=== PATIENT | male | born 1950 | race Caucasian/White ===

== ENCOUNTER → 2019-08-16 00:01 | Outpatient (RCR) | payer OTHER, SELFPAY | LOC: ONCRAD 07-18 05:52 → ONCMED 07-20 05:59 | PROVIDERS: Visit Provider Internal Medicine Hematology & Oncology | DX: Z51.0 Encounter for antineoplastic radiation therapy (principal); Z51.11 Encounter for antineoplastic chemotherapy; C32.1 Malignant neoplasm of supraglottis; D70.1 Agranulocytosis secondary to cancer chemotherapy; T45.1X5A Adverse effect of antineoplastic and immunosuppressive drugs, initial encounter; E86.0 Dehydration; I48.91 Unspecified atrial fibrillation; M19.90 Unspecified osteoarthritis, unspecified site; N18.9 Chronic kidney disease, unspecified; I12.9 Hypertensive chronic kidney disease with stage 1 through stage 4 chronic kidney disease, or unspecified chronic kidney disease; D69.6 Thrombocytopenia, unspecified; L58.9 Radiodermatitis, unspecified; B37.9 Candidiasis, unspecified; K12.32 Oral mucositis (ulcerative) due to other drugs; W88.1XXA Exposure to radioactive isotopes, initial encounter; Z93.0 Tracheostomy status; Z79.01 Long term (current) use of anticoagulants; Z79.51 Long term (current) use of inhaled steroids; Z79.899 Other long term (current) drug therapy; Z85.038 Personal history of other malignant neoplasm of large intestine | CPT/HCPCS: 36415; 36591 ×3; 77280; 77300; 77336 ×4; 77338; 77386 ×17; 80053 ×6; 85007 ×2; 85025 ×6; 96361; 96365 ×5; 96367; 96368 ×5; 96372 ×6; 96413; 99214 ×4; J0133 ×5; J1100; J1442 ×6; J1450 ×5; J1642 ×12; J2469; J9045 ==

== ENCOUNTER 2019-09-12 05:35 | Outpatient (RCR) | payer OTHER, SELFPAY ==
[2019-08-18 15:26] LABS: Eosinophils # 0.1 10^3/uL (0.0-0.8); Eosinophils % 3.8 %; Hematocrit 36.1 % (42.0-52.0); Hemoglobin 11.4 g/dL (11.7-16.6); Lymphocytes # 0.4 10^3/uL (0.8-4.8); Lymphocytes % 14.7 %; Mean Corpuscular HGB Conc 31.6 g/dL (30.0-36.0); Mean Corpuscular Hemoglobin 33.1 pg (28.0-34.0); Mean Corpuscular Volume 104.9 fL (80-94); Monocytes # 0.7 10^3/uL (0.2-0.9); Monocytes % 24.9 %; Neutrophils # 1.6 10^3/uL (1.8-7.7); Neutrophils % 55.3 %; Nucleated Red Blood Cells % 0 %; Platelet Count 307 10^3/cmm (130-400); Red Blood Count 3.44 10^6/uL (4.1-5.3); White Blood Count 2.9 10^3/uL (4.0-10.0)
[2019-09-09 09:09] LABS: Basophils % 0.2 %; Eosinophils # 0.2 10^3/uL (0.0-0.8); Eosinophils % 4.6 %; Hematocrit 36.3 % (42.0-52.0); Hemoglobin 11.8 g/dL (11.7-16.6); Lymphocytes # 0.3 10^3/uL (0.8-4.8); Lymphocytes % 7.8 %; Mean Corpuscular HGB Conc 32.5 g/dL (30.0-36.0); Mean Corpuscular Hemoglobin 33.9 pg (28.0-34.0); Mean Corpuscular Volume 104.3 fL (80-94); Mean Platelet Volume 9.3 fL (7.4-10.4); Monocytes # 0.4 10^3/uL (0.2-0.9); Monocytes % 9.9 %; Neutrophils # 3.4 10^3/uL (1.8-7.7); Neutrophils % 77.3 %; Nucleated Red Blood Cells % 0 %; Platelet Count 299 10^3/cmm (130-400); Red Blood Count 3.48 10^6/uL (4.1-5.3); Red Cell Distribution Width 15.5 % (12.1-15.1); White Blood Count 4.4 10^3/uL (4.0-10.0)
[2019-09-09 09:23] LABS: Alanine Aminotransferase 15 U/L (0-41); Albumin Level 3.7 g/dL (3.5-5.2); Alkaline Phosphatase 98 IU/L (40-130); Anion Gap 12.3 (5-19); Blood Urea Nitrogen 21 mg/dL (8-23); Calcium 9.3 mg/dL (8.5-10.5); Carbon Dioxide 30 mmol/L (22-29); Chloride 100 mmol/L (98-107); Globulin 2.2 g/dL (1.3-4.6); Glomerular Filtration Rate 74.3 mL/min (90-130); Glucose 148 mg/dL (74-106); Potassium 4.3 mmol/L (3.5-5.1); Sodium 138 mmol/L (136-145); Total Bilirubin 0.5 mg/dL (0.15-1.2); Total Protein 5.9 g/dL (6.6-8.7)
[2019-09-09 10:25] LABS: Aspartate Amino Transferase 21 U/L (0-40)
--- NOTE | 2019-09-12 16:03 | ONC FU_ITS ---
Dr. Charles follow up note Patient: Edgar Thomas Unit #: [id number]: 1950 Dicatated By: Duglas Charles M.D.Date of Visit:Sep 12, 2019 Onc Med Follow-up/Prog Note History of Present Illness: Mr. Thomas is a 69-year-old gentleman with a 40-year history of smoking. He presented with right ear pain about 4 months ago and developed a sore throat 1 to 2 months ago. He had no dysphagia, choking or difficulty breathing. He had no taste changes at that time. [facility] He was found to have a tumor in the right supraglottic area. He underwent tracheostomy and direct micro-laryngoscopic biopsy on 04/26/2019. [facility] The microlaryngeal scopic goal exam revealed the supraglottis with significant redundant tissue, mass in the right supraglottis extending into the right TVF, The pretracheal lymph node was negative for malignancy. He recovered well from the biopsies. Mr Thomas did see Dr. Banks on 05/11/2019 for consideration of radiation therapy. He underwent pet imaging on 05/06/2019. He was found to have a right supraglottic mass that extended to the right true vocal cord with an SUV of 22.7. He had bilateral jugulodigastric nodes that were too small to characterize. . He was felt to be ineligible for high-dose cisplatin concurrent with radiation therapy due to his chronic renal insufficiency, peripheral neuropathy and other comorbid conditions. so was recommended weekly carboplatin along with capecitabine daily on the days of radiation. He underwent right subclavian Mediport placement per Dr. Peres [place]16[place]2019 [place] [facility] [place] dental extractions His past medical history includes colon cancer in 2011 at which time he was treated with what sounds like FOLFOX. His reports that one of his chemo was taken away because of cold sensitivity and numbness and tingling in his fingers. He was able to continue with the pump . He reported that he tolerated that well other than the side effects from the oxaliplatin and he had no nausea or excessive diarrhea at that time. Mr Thomas started combined chemoradiation with weekly carboplatin/daily Xeloda on the day of radiation therapy on 06/20/2019. He received week 3-2 days late as his treatment was held on Thursday due to significant diarrhea and poor performance status. His treatment was then held again on July 25, 2019/July 26, 2019 due to significant neutropenia. His ANC at that time was 1300. He ended up with 6 days of Neupogen which he tolerated well His ANCgone up to 34,500.Was given last dose of weekly carboplatin concurrent with radiation therapy on 08/04/2019. While Xeloda was continued to be on hold. He has completed his radiation therapy on 08/09/2019 Came for follow-up, complaining of sore throat, no fever or chills, no yellowish phlegm but clear mucus ..Tracheostomy site is clear. No fever or chills, nonshortness of breath. No nausea vomiting Medications: Acetaminophen 2 Tablet (of 500 mg) Oral b.i.d. PRN, Albuterol Sulfate HFA 2 puff(s) (of 108 (90 base) mcg/act) Aerosol, solution Inhalation four times a day PRN, Apixaban 1 Tablet (of 5 mg) Oral b.i.d., Budesonide-Formoterol Fumarate 2 puff(s) (of 160-4.5 mcg/act) Aerosol Inhalation b.i.d., Docusate Calcium 1 Capsule (of 240 mg) Oral b.i.d., HYDROcodone-Acetaminophen 15 mL (of 7.5-325 mg/15mL) Solution Oral q 4 to 6 hours PRN, Hydrogen Peroxide (3 %) Miscellaneous Topical Take as Directed, LORazepam 0.5 - 1 Tablet (of 1 mg) Oral t.i.d. PRN, Metoprolol Tartrate 1 Tablet (of 25 mg) Oral q 6 hours PRN, Multivitamin Iron-Free 1 Tablet Oral daily, Prochlorperazine Maleate 1 Tablet (of 10 mg) Oral q 4 hours, raNITIdine HCl 1 Tablet (of 150 mg) Oral daily, Sodium Chloride (0.9 %) Aerosol, solution Inhalation Take as Directed, Spironolactone 1 Tablet (of 50 mg) Oral daily, Sterile Water for Irrigation Solution Irrigation Take as Directed, Torsemide 5 Tablet (of 10 mg) Oral daily PRN, traMADol HCl 1 Tablet (of 50 mg) Oral b.i.d. PRN Allergies: No Known Allergies. Review of Systems: Constitutional - Appetite is good and weight is stable. No fever, chills, hot flashes, or night sweats. Energy level is fair, ENMT - No sinus congestion/drainage. No mouth sores. Positive for sore throat, Hematologic/Lymphatic - No abnormal bruising or bleeding, Respiratory - Pt has trach, Cardiovascular - No angina pain. No palpitations, Gastrointestinal - No nausea or vomiting. Occasional heartburn, no acid reflux. No diarrhea or constipation. No blood in the stool or black stools, Genitourinary (M) - No dysuria or hematuria. No urinary frequency. No urgency or incontinence, Musculoskeletal - Positive for joint pain, Neurologic - No headache or dizziness. No numbness/paresthesias or other focal neurologic symptoms, Psychiatric - No anxiety or depression. Positive for insomnia. Vital Signs: Performed on Sep 12, 2019 15:31 Height - 71.00 in Weight - 262.8 lbs (HIGH) BSA - 2.37 sq.m BMI - 36.65 (HIGH) Temperature - 98.4 F Pulse - 71 /min Respiration - 26 /min BP - 137/89 mm(hg) O2 Sat - 98 % Pain - 8 Performance Status: 1 - No physically strenuous activity, but ambulatory and able to carry out light or sedentary work (e.g. office work, light house work). (ECOG) Physical Examination: ENMT - No oral exudates, ulcers, masses, thrush or mucositis. Oropharynx clear. Tongue normal.trach site is clear, Respiratory - Lungs are clear to auscultation without rhonchi or wheezing, Cardiovascular - Regular rate and rhythm of heart, Abdomen - Non-tender, non-distended, Good bowel sounds. No guarding or rebound tenderness. No pulsatile masses, Extremities - no edema. Lab/Imaging: Test performed on Aug 16, 2019 10:20 Sodium 136 mmol/L Potassium 4.5 mmol/L Chloride 98 mmol/L CO2 31 mmol/L Anion Gap 11.5 BUN 22 mg/dL Creatinine 1.0 mg/dL Cr Clearance (Est) 131.9100 mL/min eGFR 74.3 mL/min Glucose 134 mg/dl Calcium 9.9 mg/dL Protein, Total 6.9 g/dL Albumin 4.1 g/dL Globulin 2.8 gm/dL Bilirubin, Total 0.3 mg/dL ALT (SGPT) 19 U/L AST (SGOT) 18 U/L Alkaline Phosphatase 98 U/L Test performed on Aug 04, 2019 09:10 WBC 35.6 10 3/uL Manual Segs % 64 % Manual Bands % 33.0 % RBC 3.50 10 6/uL HGB 11.2 g/dL Manual Lymphs % 2.0 % HCT 35.6 % Manual Monos % 1.0 % MCV 101.7 fl MCH 32.0 pg MCHC 31.5 g/dl RDW 17.8 % Platelet Count 314 10 3/cmm MPV 9.1 fl CBC Slide Review SLIDE REVIEW PERFORM Polychromasia TRACE Poikilocytosis 1+ Ovalocytes 1+ Platelet Estimate NORMAL Platelets, Giant TRACE Manual Neutrophils Abs 34.5 10 3/cmm Manual Lymphocytes Abs 0.7 10 3/cmm Manual Monocytes Abs 0.4 10 3/cmm Test performed on Aug 01, 2019 08:59 Manual Eos % 2 % Metamyelocytes % 3.0 % Myelocytes % 2.0 % Anisocytosis 1+ Macrocytosis 1+ Manual Eosinophils Abs 0.0 10 3/cmm Test performed on Jul 25, 2019 11:01 Neutrophils 1.3 10 3/uL Lymphocytes 0.3 10 3/uL Monocytes 0.3 10 3/uL Eosinophils 0.1 10 3/uL Basophils 0.0 10 3/uL Neutrophil % 66.7 % Lymphocyte % 14.6 % Monocyte % 13.0 % Eosinophil % 4.7 % Basophils % 0.0 % Impression: .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 CT PET scan done on 05/14/2019 showed abnormal activity in the right supra glottic territory with extension into right true cord with SUV of 22.7 measuring up to 2.8 cm. Tiny, bilateral level IV jugulodigastric nodes are too small to characterize. Micrometastatic disease cannot be ruled out. 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 Atrial fibrillation on anticoagulation. Mr Thomas has been offered concurrent treatment with radiation and chemotherapy with weekly Carboplatin and capecitabine Thursday-Thursday concurrent with radiation. He began his first on cycles/treatment on 06/27/2019. Week 3 was delayed due to significant diarrhea, which he thought it was something he ate. His diarrhea improved, but his was thrombocytopenic with a platelet count of 80,000. He has continued to be delayed due to blood counts and most recent neutropenia. He did receive 6 doses of growth factor and his counts have recovered. He completes radiation therapy on 08/09/2019.And last dose of chemotherapy with weekly carboplatin was given on 08/04/2019, while Xeloda was on hold. So he concluded his combined chemoradiation on 08/09/2019. Plan: Discussed with patient regarding his labs white blood count 4.4 hemoglobin 11.8 crit 36.3 Platelets 299,000 Clinically, patient is doing well now recovering well from combined chemoradiation, his follow-up lab shows normalization of hemoglobin and resolution of leukopenia. Patient has seen radiation oncology last week now scheduled for follow-up CT scan of neck on 09/21/2019 and patient also has follow-up appointment with ENT in September 2019. We'll flush her Port-A-Cath today and then he'll return to clinic in one month with CBC and if follow-up CT scan of neck shows no evidence of disease then we'll see him on as-needed basis as patient will be following ENT and radiation oncology on a regular basis. Signed By: Duglas Charles M.D. <<Signature on File>>
== END 2019-09-16 23:59 | disposition home or self-care (01) ==
LOC: ONCMED 05:35
PROVIDERS: Visit Provider Internal Medicine Hematology & Oncology
DX: C32.1 Malignant neoplasm of supraglottis (principal); Z45.2 Encounter for adjustment and management of vascular access device; N18.9 Chronic kidney disease, unspecified; G62.9 Polyneuropathy, unspecified; F51.01 Primary insomnia; I48.91 Unspecified atrial fibrillation; Z93.0 Tracheostomy status; Z79.891 Long term (current) use of opiate analgesic; Z79.01 Long term (current) use of anticoagulants; Z92.3 Personal history of irradiation; Z92.21 Personal history of antineoplastic chemotherapy
CPT/HCPCS: 80053; 85025; 96523; G0463

== ENCOUNTER 2019-09-21 07:40 | Outpatient (CLI) | payer OTHER, SELFPAY | END 2019-09-21 07:41 | disposition home or self-care (01) | LOC: RAD 07:41 | PROVIDERS: Visit Provider Internal Medicine Hematology & Oncology | DX: Z76.89 Persons encountering health services in other specified circumstances (principal) ==

== ENCOUNTER 2019-10-13 05:45 | Outpatient (RCR) | payer OTHER, SELFPAY ==
--- NOTE | 2019-09-21 07:51 | CT_ITS ---
WS: [id number] CT NECK WITH CONTRAST HISTORY: MALIGNANT NEOPLASM OF SUPRAGLOTTIS TECHNIQUE: Contiguous 5 mm axial images are performed through the neck with intravenous contrast. Sag ittal and coronal reformats are also submitted. All CT scans at [facility] use at least o ne of these dose optimization techniques: automated exposure control; mA and/or kV adjustment per pat ient size (includes targeted exams where dose is matched to clinical indication); or iterative recons truction. CONTRAST: CONTRAST: Omnipaque 300; 95 mL IV. DLP: 847.35 mGy.cm COMPARISON: None available. Tracheostomy is present in good position. There is significant soft tissue thickening and edematous changes near the glottis and supraglottic a irway. There is still soft tissue thickening especially involving the RIGHT glottis and vocal cord re gion. Some of these changes may be related to edema and postradiation changes. The soft tissue thicke ben and edema extends circumferentially around the larynx but is more prominent on the RIGHT at the level of the vocal cords. There is no discrete enhancing mass. There are a few jugulodigastric lymph nodes. These are not significantly enlarged or changed since pr ior studies. Thyroid gland and salivary glands are normally enhancing with no masses. Straightening of the normal cervical lordosis with disc space narrowing and osteophytes. Visualized portions of the skull base demonstrate no abnormalities. Orbits and globes are within norm al limits. No soft tissue masses. Visualized paranasal sinuses and mastoid air cells are normal. Emphysematous changes in the upper lung pérez. There is diffuse scattered opacifications in the RIGH T upper lobe which are ill-defined and groundglass attenuation. Early metastatic lesions are not excl uded but more likely pneumonitis. CT/CT neck w con* [id number] IMPRESSION: 1. Tracheostomy remains in good position. 2. There is significant soft tissue tissue thickening and edema in the glottic and supraglottic region. Suspect this is probably related to the treatment of a known neoplasm at the level of the vocal cords. There is continued asymmetric thickening of the true and false vocal cord region. No discrete enhancing mass . 3. No enlarging lymph nodes. 4. Scattered ill-defined opacifications RIGHT upper lobe. Probably related to pneumonitis. Recommend follow-up CT imaging in 3 months to exclude early metast atic disease.
[2019-09-21] MEDS: iohexol 300 mg/mL 100 mL Btl IV (08:16)
--- NOTE | 2019-10-03 11:53 | ONCRAD EPV_ITS ---
Radiation Oncology Established Patient Visit Patient: Pao MR#: [id number] : 1950> Age: 69> Sex: Male> Dictated by: Dr. Raymond Banks Date of Service: 09/28/2019 Referring Physician(s) : Duglas Charles Diagnosis: C32.1 - Malignant neoplasm of supraglottis, Diagnosed 04/26/2019 (Active) Stage X, Chief Complaint / History of Present Illness: This is a 68-year-old gentleman with a locally advanced invasive squamous cell carcinoma involving the supraglottis, with significant redundant tissue/mass of right supraglottis extending to right TVF. He received concurrent chemoradiation therapy to a total dose of 70 Gy completed on August 09, 2019. The patient comes in for follow-up today. He notes significant neck pain and swelling as well as sore throat, ear pain, dry mouth, altered taste, odynophagia and dysphagia but denies choking or difficulty breathing. He underwent a CT of neck on September 21, 2019 which showed a significant soft tissue thickening and edema in the glottic and supraglottic region. There is continued asymmetric thickening of left true and false vocal cord region but no discrete enhancing mass. There are no enlarged lymph nodes. Current Medications: Acetaminophen, albuterol Sulfate HFA, aloxi, apixaban, budesonide-Formoterol Fumarate, capecitabine, cARBOplatin, dexamethasone Sodium Phosphate, docusate Calcium, hYDROcodone-Acetaminophen, hYDROcodone-Acetaminophen, hydrogen Peroxide, levoFLOXacin, lORazepam, metoprolol Tartrate, multivitamin Iron-Free, prochlorperazine Maleate, prochlorperazine Maleate, raNITIdine HCl, sodium Chloride, spironolactone, sterile Water for Irrigation, torsemide, traMADol HCl, traMADol HCl. Allergies: No Known Allergies Current Complaints / Review of Systems: Constitutional - Complains of mild fatigue. Complains of night sweats which occur every night. Denies fever. Patient is NPO right now and receives nutrition by the PEG Tube. Eyes - Complains of blurred vision occasionally. ENMT - Complains of dysphagia which has been worsening in the past 2 to 3 weeks.. Complains of ear pain in both ears. Complains of problems with hearing in both ears. Complains of mouth dryness. Complains of stomatitis. Complains of altered taste. Complains of tinnitus. Neck - Complains of neck pain and swelling of the neck. Integumentary - Denies rash. Respiratory - Complains of a severe cough which is productive. Complains of wheezing. Denies dyspnea. Gastrointestinal - Complains of occasional constipation. Complains of intermittent diarrhea. Complains of heartburn / dyspepsia. Complains of nausea. Denies abdominal pain, melena / GI bleeding and vomiting. Genitourinary (M) - Denies dysuria, frequency and urgency. Musculoskeletal - Complains of arthritis and joint pain in the knees, right hip and elbow. Denies bone pain. Neurologic - Complains of headaches. Denies dizziness and abnormal gait. Endocrine - Denies diabetes and thyroid disease. Hematologic/Lymphatic - Denies tender or enlarged lymph nodes.. Vital Signs: Performed on 09/28/2019 4:00 PM BMI - 37.192 kg/m2 (high), Height - 70.00 in, Weight - 259.2 lbs, Temperature - 97.7 f, Pulse - 88, Respiration - 20, O2 Sat - 96 %, Pain - 6 and BP - 114/ 80 mm(hg). Physical Exam: General: Alert and oriented x 3. No acute distress. HEENT: Normocephalic, atraumatic. Extraocular Movements Intact: Pupils Equal, Round, Reactive to Light and Accommodation: Sclerae anicteric. Oral cavity is clear without lesions, masses or ulcers. NECK: Supple without supraclavicular or jugular lymphadenopathy. Neck is swollen. Trach in place. The trach site is clean with no signs of infection or bleeding. LUNGS: Clear to auscultation bilaterally without rales, rhonchi or wheeze. HEART: Regular rate and rhythm, normal S1 and S2 without murmur, gallop or rub. MUSCULOSKELETAL: No tenderness or percussion pain over the axial skeleton, scapulae or pelvis. ABDOMEN: Soft, nontender, nondistended without masses or organomegaly. Bowel sounds are present. EXTREMITIES: No peripheral edema is identified. Limited motor and sensory examination are grossly intact and symmetric bilaterally. NEUROLOGIC: Cranial nerves II ???XII are grossly intact. Normal sensation, strength 5/5 in all extremities, normal gait, no ataxia. Performance Status: 2 - Ambulatory/capable of all self-care, unable to perform any work activities. Up and about more than 50% of waking hours. (ECOG) Lab: Test performed on 09/09/2019 7:15 AM RBC - 3.48 10 6/ul (low), HCT - 36.3 % (low), MCV - 104.3 fl (high), RDW - 15.5 % (high), Lymphocytes - 0.3 10 3/ul (low), CO2 - 30 mmol/l (high), eGFR - 74.3 ml/min (low), Glucose - 148 mg/dl (high) and Protein, Total - 5.9 g/dl (low). Pathology: Squamous cell carcinoma Imaging: See HPI Impression: The patient is about 7 weeks post chemoradiation and has clinical evidence of swelling and edema in the larynx with pain. Plan: I recommended patient to take ibuprofen 200 mg 3 times daily with meals for 7 to 10 days andCome back to see us for reevaluation. He was instructed to take Prilosec to protect the stomach while taking ibuprofen. I also instructed patient to clean the trach site daily according to instruction. Signed by: 10/03/2019 11:51:33 AM <<Signature on File>> CPT Code: CPT Code: Signed By: Dr. Raymond Banks, 10/03/2019 11:51:34 AM <<Signature on File>>
[2019-10-12 12:04] LABS: Basophils % 0.1 %; Eosinophils # 0.2 10^3/uL (0.0-0.8); Eosinophils % 2.5 %; Hematocrit 41.1 % (42.0-52.0); Hemoglobin 12.8 g/dL (11.7-16.6); Lymphocytes # 0.4 10^3/uL (0.8-4.8); Lymphocytes % 5.6 %; Mean Corpuscular HGB Conc 31.1 g/dL (30.0-36.0); Mean Corpuscular Hemoglobin 32.3 pg (28.0-34.0); Mean Corpuscular Volume 103.8 fL (80-94); Mean Platelet Volume 9.3 fL (7.4-10.4); Monocytes # 0.8 10^3/uL (0.2-0.9); Monocytes % 11.1 %; Neutrophils # 5.9 10^3/uL (1.8-7.7); Neutrophils % 80.6 %; Nucleated Red Blood Cells % 0 %; Platelet Count 399 10^3/cmm (130-400); Red Blood Count 3.96 10^6/uL (4.1-5.3); Red Cell Distribution Width 12.3 % (12.1-15.1); White Blood Count 7.3 10^3/uL (4.0-10.0)
[2019-10-12 12:34] LABS: Alanine Aminotransferase 30 U/L (0-41); Albumin Level 3.5 g/dL (3.5-5.2); Alkaline Phosphatase 126 IU/L (40-130); Anion Gap 16.4 (5-19); Aspartate Amino Transferase 26 U/L (0-40); Blood Urea Nitrogen 28 mg/dL (8-23); Calcium 9.5 mg/dL (8.5-10.5); Carbon Dioxide 30 mmol/L (22-29); Chloride 98 mmol/L (98-107); Glomerular Filtration Rate 83.9 mL/min (90-130); Glucose 126 mg/dL (65-115); Potassium 4.4 mmol/L (3.5-5.1); Sodium 140 mmol/L (136-145); Total Bilirubin 0.2 mg/dL (0.15-1.2); Total Protein 7.5 g/dL (6.6-8.7)
--- NOTE | 2019-10-17 14:54 | ONCRAD EPV_ITS ---
Radiation Oncology Established Patient Visit Patient: Pao MR#: [id number] : 1950> Age: 69> Sex: Male> Dictated by: Dr. Raymond Banks Date of Service: 10/13/2019 Referring Physician(s) : Duglas Charles Diagnosis: C32.1 - Malignant neoplasm of supraglottis, Diagnosed 04/26/2019 (Active) Stage X, Chief Complaint / History of Present Illness: This is a 68-year-old gentleman with a locally advanced invasive squamous cell carcinoma involving the supraglottis, with significant redundant tissue/mass of right supraglottis extending to right TVF. He received concurrent chemoradiation therapy to a total dose of 70 Gy completed on August 09, 2019. He underwent a CT of neck on September 21, 2019 which showed a significant soft tissue thickening and edema in the glottic and supraglottic region. There is continued asymmetric thickening of left true and false vocal cord region but no discrete enhancing mass. There are no enlarged lymph nodes. The patient comes in for follow-up today. He notes neck pain and swelling are unchanged. He also notes right ear pain occasionally, dry mouth, altered taste, odynophagia and dysphagia. He is NPO per his ENT doctor and use PEG tube for feeding. Current Medications: Acetaminophen, albuterol Sulfate HFA, aloxi, apixaban, budesonide-Formoterol Fumarate, capecitabine, cARBOplatin, dexamethasone Sodium Phosphate, docusate Calcium, hYDROcodone-Acetaminophen, hydrogen Peroxide, levoFLOXacin, lORazepam, metoprolol Tartrate, morphine Sulfate, multivitamin Iron-Free, prochlorperazine Maleate, prochlorperazine Maleate, raNITIdine HCl, sodium Chloride, spironolactone, sterile Water for Irrigation, torsemide, traMADol HCl. Allergies: No Known Allergies Current Complaints / Review of Systems: Constitutional - Complains of mild fatigue. Complains of night sweats which occur occasionally. Denies fever. Patient is NPO and uses the PEG tube. Eyes - Denies blurred vision. ENMT - Complains of dysphagia and also has odynophagia. His ENT does not want him to take anything by mouth and only use the PEG Tube for now. Complains of ear pain on the right side occasionally. Complains of mouth dryness. Denies stomatitis. Neck - Complains of neck pain and swelling of the neck that comes and goes. Integumentary - Denies rash. Cardiovascular - Complains of arrhythmias occasionally and he H/O A-Fib. Denies chest pain. Respiratory - Complains of a moderate cough which is productive. Complains of dyspnea occasionally. Complains of wheezing. Denies hemoptysis. Gastrointestinal - Complains of intermittent constipation. Complains of occasional diarrhea. Complains of heartburn / dyspepsia. Complains of nausea. Denies abdominal pain and vomiting. Genitourinary (M) - Denies dysuria, frequency and urgency. Musculoskeletal - Complains of arthritis, bone pain left shoulder that started last week and joint pain. Denies muscle weakness. Neurologic - Complains of headaches occasionally and has been getting them with coughing as well. Denies dizziness. Endocrine - Denies diabetes and thyroid disease. Hematologic/Lymphatic - Denies tender or enlarged lymph nodes. Vital Signs: Performed on 10/13/2019 12:00 AM Height - 71.00 in, Weight - 257.2 lbs, BMI - 35.872 kg/m2 (high), Temperature - 97.5 f, Pulse - 59, Respiration - 18, O2 Sat - 95 % (low), Pain - 6 and BP - 119/ 78 mm(hg). Physical Exam: General: Alert and oriented x 3. No acute distress. HEENT: Normocephalic, atraumatic. Extraocular Movements Intact: Pupils Equal, Round, Reactive to Light and Accommodation: Sclerae anicteric. Oral cavity is clear without lesions, masses or ulcers. NECK: Supple without supraclavicular or jugular lymphadenopathy. Trach in place. LUNGS: Clear to auscultation bilaterally without rales, rhonchi or wheeze. HEART: Regular rate and rhythm, normal S1 and S2 without murmur, gallop or rub. MUSCULOSKELETAL: No tenderness or percussion pain over the axial skeleton, scapulae or pelvis. ABDOMEN: Soft, nontender, nondistended without masses or organomegaly. Bowel sounds are present. EXTREMITIES: No peripheral edema is identified. Limited motor and sensory examination are grossly intact and symmetric bilaterally. NEUROLOGIC: Cranial nerves II ???XII are grossly intact. Normal sensation, strength 5/5 in all extremities, normal gait, no ataxia. Performance Status: 2 - Ambulatory/capable of all self-care, unable to perform any work activities. Up and about more than 50% of waking hours. (ECOG) Lab: Test performed on 09/09/2019 7:15 AM RBC - 3.48 10 6/ul (low), HCT - 36.3 % (low), MCV - 104.3 fl (high), RDW - 15.5 % (high), Lymphocytes - 0.3 10 3/ul (low), CO2 - 30 mmol/l (high), eGFR - 74.3 ml/min (low), Glucose - 148 mg/dl (high) and Protein, Total - 5.9 g/dl (low). Pathology: Squamous cell carcinoma Imaging: See HPI Impression/plan: The patient has laryngeal edema unchanged. He will follow up with his ENT for management. I will order a CT of neck in 3 months. He will follow up with me afterwards. He is instructed to call us with any questions or issues. Signed by: 10/17/2019 2:53:01 PM <<Signature on File>> CPT Code: CPT Code: Signed By: Dr. Raymond Banks, 10/17/2019 2:53:02 PM <<Signature on File>>
== END 2019-10-15 23:59 | disposition home or self-care (01) ==
LOC: ONCMED 05:45
PROVIDERS: Radiology Radiation Oncology; Visit Provider Internal Medicine Hematology & Oncology
DX: C32.1 Malignant neoplasm of supraglottis (principal); Z45.2 Encounter for adjustment and management of vascular access device; R91.8 Other nonspecific abnormal finding of lung field; R60.0 Localized edema; Z93.0 Tracheostomy status; Z79.891 Long term (current) use of opiate analgesic; Z92.21 Personal history of antineoplastic chemotherapy; Z92.3 Personal history of irradiation
CPT/HCPCS: 70491; 80053; 85025; 96523

== ENCOUNTER 2019-10-24 05:52 | Outpatient (RCR) | payer OTHER, SELFPAY ==
--- NOTE | 2019-10-24 11:43 | ONC FU_ITS ---
Dr. Charles follow up note Patient: Edgar Thomas Unit #: [id number]: [id number] Dicatated By: Duglas Charles M.D.Date of Visit:Oct 24, 2019 Onc Med Follow-up/Prog Note History of Present Illness: Mr. Thomas is a 69-year-old gentleman with a 40-year history of smoking. He presented with right ear pain about 4 months ago and developed a sore throat 1 to 2 months ago. He had no dysphagia, choking or difficulty breathing. He had no taste changes at that time. [facility] He was found to have a tumor in the right supraglottic area. He underwent tracheostomy and direct micro-laryngoscopic biopsy on 04/26/2019. [facility] The microlaryngeal scopic goal exam revealed the supraglottis with significant redundant tissue, mass in the right supraglottis extending into the right TVF, The pretracheal lymph node was negative for malignancy. He recovered well from the biopsies. Mr Thomas did see Dr. Banks on 05/11/2019 for consideration of radiation therapy. He underwent pet imaging on 05/06/2019. He was found to have a right supraglottic mass that extended to the right true vocal cord with an SUV of 22.7. He had bilateral jugulodigastric nodes that were too small to characterize. . He was felt to be ineligible for high-dose cisplatin concurrent with radiation therapy due to his chronic renal insufficiency, peripheral neuropathy and other comorbid conditions. so was recommended weekly carboplatin along with capecitabine daily on the days of radiation. He underwent right subclavian Mediport placement per Dr. Peres on 06/16/2019 at [facility] [place]. He also had dental extractions His past medical history includes colon cancer in 2011 at which time he was treated with what sounds like FOLFOX. His reports that one of his chemo was taken away because of cold sensitivity and numbness and tingling in his fingers. He was able to continue with the pump . He reported that he tolerated that well other than the side effects from the oxaliplatin and he had no nausea or excessive diarrhea at that time. Mr Thomas started combined chemoradiation with weekly carboplatin/daily Xeloda on the day of radiation therapy on 06/20/2019. He received week 3-2 days late as his treatment was held on Thursday due to significant diarrhea and poor performance status. His treatment was then held again on July 25, 2019/July 26, 2019 due to significant neutropenia. His ANC at that time was 1300. He ended up with 6 days of Neupogen which he tolerated well His ANCgone up to 34,500.Was given last dose of weekly carboplatin concurrent with radiation therapy on 08/04/2019. While Xeloda was continued to be on hold. He has completed his radiation therapy on 08/09/2019 Follow-up CT scan of neck done on September 21 showed there is a significant soft tissue thickening and edema in the glottic and supraglottic region.. There is continued asymmetric thickening of the true and false vocal cord region. No discrete enhancing mass seen, changes could be posttreatment related. No enlarging lymph nodes. Scattered ill-defined opacifications right upper lobe, probably related to pneumonitis and recommend CT scan in 3 months to exclude early metastatic disease. Neck pain now being treated with morphine per [facility] Came for follow-up, complaining of pain around tracheostomy site but no pus discharge, no fever or chills, no nausea or vomiting. Patient said he is on morphine twice a day but [facility] clinic in [place] and is not enough to control his pain. Patient was offered pain medicine prescription but he had signed a consent form with the [facility] that he would not take pain medicine from other practices. Other than that no new bony pains, no jaundice, no hemoptysis or hematemesis. Medications: Acetaminophen 2 Tablet (of 500 mg) Oral b.i.d. PRN, Albuterol Sulfate HFA 2 puff(s) (of 108 (90 base) mcg/act) Aerosol, solution Inhalation four times a day PRN, Apixaban 1 Tablet (of 5 mg) Oral b.i.d., Budesonide-Formoterol Fumarate 2 puff(s) (of 160-4.5 mcg/act) Aerosol Inhalation b.i.d., Docusate Calcium 1 Capsule (of 240 mg) Oral b.i.d., Hydrogen Peroxide (3 %) Miscellaneous Topical Take as Directed, LORazepam 0.5 - 1 Tablet (of 1 mg) Oral t.i.d. PRN, Metoprolol Tartrate 1 Tablet (of 25 mg) Oral q 6 hours PRN, Morphine Sulfate (10 mg/5mL) Solution Oral b.i.d. PRN, Multivitamin Iron-Free 1 Tablet Oral daily, Prochlorperazine Maleate 1 Tablet (of 10 mg) Oral q 4 hours, raNITIdine HCl 1 Tablet (of 150 mg) Oral daily, Sodium Chloride (0.9 %) Aerosol, solution Inhalation Take as Directed, Spironolactone 1 Tablet (of 50 mg) Oral daily, Sterile Water for Irrigation Solution Irrigation Take as Directed, Torsemide 5 Tablet (of 10 mg) Oral daily PRN Allergies: No Known Allergies. Review of Systems: Constitutional - Appetite is good and weight is stable. No fever, chills, hot flashes, or night sweats. Energy level is fair, ENMT - No sinus congestion/drainage. No mouth sores. Positive for sore throat (Pt states that he experiencing burning in his throat), Hematologic/Lymphatic - No abnormal bruising or bleeding, Respiratory - Pt has trach, Cardiovascular - No angina pain. No palpitations, Gastrointestinal - No nausea or vomiting. Occasional heartburn, no acid reflux. No diarrhea or constipation. No blood in the stool or black stools, Genitourinary (M) - No dysuria or hematuria. No urinary frequency. No urgency or incontinence, Musculoskeletal - Positive for joint pain, Neurologic - No headache or dizziness. No numbness/paresthesias or other focal neurologic symptoms, Psychiatric - No anxiety or depression. Positive for insomnia. Vital Signs: Performed on Oct 24, 2019 11:03 Height - 71.00 in Weight - 249.6 lbs (LOW) BSA - 2.32 sq.m BMI - 34.81 (HIGH) Temperature - 98.2 F (LOW) Pulse - 94 /min Respiration - 22 /min BP - 128/71 mm(hg) O2 Sat - 94 % (LOW) Pain - 8 Performance Status: 2 - Ambulatory/capable of all self-care, unable to perform any work activities. Up and about more than 50% of waking hours. (ECOG) Physical Examination: ENMT - No oral exudates, ulcers, masses, thrush or mucositis Tongue normal, Neck - tracheostomy site, is clear with some swelling around. Lab/Imaging: Test performed on Sep 09, 2019 07:15 Sodium 138 mmol/L Potassium 4.3 mmol/L Chloride 100 mmol/L CO2 30 mmol/L Anion Gap 12.3 BUN 21 mg/dL Creatinine 1.0 mg/dL Cr Clearance (Est) 131.9100 mL/min eGFR 74.3 mL/min Glucose 148 mg/dL Calcium 9.3 mg/dL Protein, Total 5.9 g/dL Albumin 3.7 g/dL Globulin 2.2 g/dL Bilirubin, Total 0.5 mg/dL ALT (SGPT) 15 U/L AST (SGOT) 21 U/L Alkaline Phosphatase 98 IU/L WBC 4.4 10 3/uL RBC 3.48 10 6/uL HGB 11.8 g/dL HCT 36.3 % MCV 104.3 fL MCH 33.9 pg MCHC 32.5 g/dL RDW 15.5 % Platelet Count 299 10 3/cmm MPV 9.3 fL Neutrophils 3.4 10 3/uL Lymphocytes 0.3 10 3/uL Monocytes 0.4 10 3/uL Eosinophils 0.2 10 3/uL Basophils 0.0 10 3/uL Neutrophil % 77.3 % Lymphocyte % 7.8 % Monocyte % 9.9 % Eosinophil % 4.6 % Basophils % 0.2 % Test performed on Aug 04, 2019 09:10 Manual Segs % 64 % Manual Bands % 33.0 % Manual Lymphs % 2.0 % Manual Monos % 1.0 % CBC Slide Review SLIDE REVIEW PERFORM Polychromasia TRACE Poikilocytosis 1+ Ovalocytes 1+ Platelet Estimate NORMAL Platelets, Giant TRACE Manual Neutrophils Abs 34.5 10 3/cmm Manual Lymphocytes Abs 0.7 10 3/cmm Manual Monocytes Abs 0.4 10 3/cmm Test performed on Aug 01, 2019 08:59 Manual Eos % 2 % Metamyelocytes % 3.0 % Myelocytes % 2.0 % Anisocytosis 1+ Macrocytosis 1+ Manual Eosinophils Abs 0.0 10 3/cmm Impression: .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 CT PET scan done on 05/14/2019 showed abnormal activity in the right supra glottic territory with extension into right true cord with SUV of 22.7 measuring up to 2.8 cm. Tiny, bilateral level IV jugulodigastric nodes are too small to characterize. Micrometastatic disease cannot be ruled out. 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 Atrial fibrillation on anticoagulation. Mr Thomas has been offered concurrent treatment with radiation and chemotherapy with weekly Carboplatin and capecitabine Thursday-Thursday concurrent with radiation. He began his first on cycles/treatment on 06/27/2019. Week 3 was delayed due to significant diarrhea, which he thought it was something he ate. His diarrhea improved, but his was thrombocytopenic with a platelet count of 80,000. He has continued to be delayed due to blood counts and most recent neutropenia. He did receive 6 doses of growth factor and his counts have recovered. He completes radiation therapy on 08/09/2019.And last dose of chemotherapy with weekly carboplatin was given on 08/04/2019, while Xeloda was on hold. So he concluded his combined chemoradiation on 08/09/2019. Plan: Discussed with patient regarding his labs white blood count 7.3 hemoglobin 12.8 crit 41.1 platelets 399,000 CMP within normal limits and CT scan of neck findings Clinically, patient is in moderate distress due to neck pain, not being controlled with morphine prescribed by [facility]. Patient was advised to call his physician at [facility] for proper pain management as he has signed a consent form with [facility], stating not to get narcotic prescription for other practices. His follow-up labs done today showed his anemia has resolved and electrolytes and renal function/liver function test within normal limits. And CT scan of neck shows no obvious recurrence of disease but persistent soft tissue thickening and edema in the glottic and supraglottic lesion which could be due to posttreatment changes but concern is persistent disease, now being scheduled to see ENT physician at [facility] in [place] on coming Thursday. We will continue with monthly port maintenance and he will return to clinic in one month for port flush and further discussion and if ENT evaluation shows no evidence of recurrence of disease then patient will follow with ENT and radiation oncology and we will see him on as-needed basis. Signed By: Duglas Charles M.D. <<Signature on File>>
== END 2019-11-15 23:59 | disposition home or self-care (01) ==
LOC: ONCMED 05:52
PROVIDERS: Visit Provider Internal Medicine Hematology & Oncology
DX: C32.1 Malignant neoplasm of supraglottis (principal); M54.2 Cervicalgia; N04.1 Nephrotic syndrome with focal and segmental glomerular lesions; N18.9 Chronic kidney disease, unspecified; I48.91 Unspecified atrial fibrillation; G62.0 Drug-induced polyneuropathy; T45.1X5S Adverse effect of antineoplastic and immunosuppressive drugs, sequela; Z79.01 Long term (current) use of anticoagulants; Z79.891 Long term (current) use of opiate analgesic; Z92.3 Personal history of irradiation; Z85.038 Personal history of other malignant neoplasm of large intestine; Z90.49 Acquired absence of other specified parts of digestive tract
CPT/HCPCS: 99214

== ENCOUNTER 2019-11-11 20:55 | Inpatient (IN) | payer OTHER, SELFPAY ==
[2019-11-11 21:10] VITALS: BP 112/61; PULSE 100; RESP 20; TEMP 36.7; O2SAT 93; BMI 33.5
--- NOTE | 2019-11-11 21:11 | ECG_ITS ---
Measurements Intervals [place] Rate: 119 P: CT: 0 QRS: -84 QRSD: 124 T: 48 QT: 338 QTc: 477 ATRIAL FIBRILLATION WITH RAPID VENTRICULAR RESPONSE LEFT AXIS DEVIATION [QRS AXIS < -30] RIGHT BUNDLE BRANCH BLOCK [120+ ms QRS DURATION, UPRIGHT V1, 40+ ms S IN I/ I/aVL/V4/V5/V6] No previous ECG available for comparison Electronically Signed On 11-12-2019 9:37:33 CDT by Renetta Whalen M.D. [id number]
--- NOTE | 2019-11-11 21:11 | ED_ITS ---
Entered by Mindy Rincon, acting as scribe for AnujCarmen Hola HPI - SOB/Dyspnea General: Chief Complaint: Shortness of Breath/Dyspnea Stated Complaint: sob Time Seen by Provider: 11/11/19 21:10 Source: patient and RN notes reviewed Mode of arrival: wheelchair Limitations: no limitations History of Present Illness: HPI Narrative: 69 yo male presents to ED with complaints of shortness of breath and a cough. The patient states he has had the shortness of breath for a week but it became worse this afternoon. He finished a course of antibiotics yesterday that he had been prescribed for an upper respiratory infection. The patient still has a cough with yellow sputum and wheezing. He states he also has chest pain, but only when he coughs. The patient has active Malignant neoplasm of supraglottis and is being treated by Dr Charles and Dr Banks. MD elicited complaint: shortness of breath and cough Pertinent past history: tracheostomy and other (cancer: Malignant neoplasm of supraglottis) Onset (ago): hour(s) (today) Context: recent illness Timing: constant and progressively worsening Severity: severe Exacerbating factors: movement and coughing Relieving factors: nothing Known history of: other (cancer: Malignant neoplasm of supraglottis) Associated symptoms: Reports cough; Deny chest congestion, chest pain, diaphoresis, dizziness, fever(s), hemoptysis, orthopnea, palpitations or syncope Treatment prior to arrival: none Related Data: Home oxygen amount: none Review of Systems General: Reports: other (negative unless marked) Const: Denies: fever, chills, body aches, fatigue, malaise or diaphoresis Card: Denies: chest pain, palpitations, syncope, pre-syncope or shortness of breath when lying down Resp: Reports: shortness of breath, productive cough, wheezing and pain on inspiration; Denies: non-productive cough, coughing up blood or chest congestion Skin/Breast: Denies: rash, skin tenderness or yellow skin Neuro: Denies: headache, numbness in extremities, weakness in extremities, changes in sensation, lack of coordination, difficulty walking, dizziness, vertigo or confusion Nilson/Lymph: Denies: easy bruising, easy bleeding, petechiae or enlarged lymph nodes All/Imm: Denies: hives, throat swelling, tongue swelling, facial swelling or acute wheezing PFSH ED PFSH: Medical History (Updated 11/11/19 @ 22:55 by Carmen Leslie) Atrial fibrillation CKD (chronic kidney disease) Congestive heart failure (CHF) COPD (chronic obstructive pulmonary disease) Diabetes mellitus Hypertension Neuropathy Tracheostomy in place Social History Smoking and tobacco status: former smoker Physical Exam Const: COMMON NORMALS: no apparent distress, oriented x3, healthy appearing and well nourished EXAM LIMITATIONS: no altered mental status GENERAL APPEARANCE: cooperative, well kempt and well developed ORIENTATION/ CONSCIOUSNESS: Yes awake HENMT: COMMON NORMALS: normocephalic, head/scalp atraumatic, hearing grossly normal bilaterally, external ears normal, EAC's normal, external nose normal and moist oral mucous membranes HEAD & SCALP: normal to inspection, normocephalic and atraumatic FACE & SINUS: normal facial exam and face symmetric NOSE: external nose normal and nares normal EXTERNAL EAR: Yes external ears normal EXTERNAL AUDITORY CANAL: EAC's normal MOUTH: oral and palatal mucosa normal and tongue normal Eye: COMMON NORMALS: PERRL, EOMs intact bilaterally, conjunctivae normal and no scleral icterus GENERAL EYE: normal appearance of both eyes and normal light reflex CONJUNCTIVA: Yes conjunctivae normal SCLERA: sclerae normal CORNEA: Yes corneas normal PUPIL: Yes PERRL DIRECT OPHTHALMOSCOPY: Yes normal light reflex Neck/C-Spine: COMMON NORMALS: no meningeal signs and no JVD Chest: COMMONS NORMALS: inspection of chest normal and palpation of chest normal Resp: COMMON NORMALS: no retractions EFFORT & INSPECTION: Yes able to speak in complete sentences and Yes uses accessory muscles AUSCULTATION: rhonchi and wheezes throughout Cardio: COMMON NORMALS: no JVD, regular rhythm, S1 normal heart sound, S2 normal heart sound, no gallops, no clicks, no murmurs and no rub JUGULAR VENOUS DISTENTION: no JVD RATE: tachycardic RHYTHM: regular rhythm HEART SOUNDS: S1 normal and S2 normal Neuro: COMMON NORMALS: oriented x3, CN's II-XII intact bilaterally, moves all extremities, no focal motor deficits and no sensory deficits noted MENINGEAL SIGNS: Yes no meningeal signs Psych: APPEARANCE: Yes well kempt Skin: COMMON NORMALS: no rashes or lesions noted, skin turgor normal, no jaundice, no petechiae and no mottling GENERAL SKIN EXAM: no rashes or lesions noted and turgor normal Course Vital Signs: Vital signs: Vital Signs Temperature 98.0 F 11/11/19 21:10 Pulse Rate 100 11/11/19 21:10 Respiratory Rate 20 H 11/11/19 21:10 Blood Pressure 112/61 11/11/19 21:10 Pulse Oximetry 93 11/11/19 21:10 MDM - SOB/Dyspnea MDM Narrative: Medical decision making narrative: Edgar is a nice 69-year-old male who comes in with increased sputum production, wheezing, increasing shortness of breath and generalized fatigue. Testing for local pandemic viruses as well as fluid been sent. His chest x-ray is clear. I do not see any evidence of congestive heart failure. The patient appears to be clinically dry and indeed has a sodium of 158. We will go ahead and rehydrate him with normal saline and treat him for a COPD exacerbation. I reviewed the case in full with Dr. Clarke and she agrees admit the patient for further evaluation and care. Lab Data: Attestation: I reviewed the patient's lab results. Labs: Lab Results 11/11/19 11/11/19 11/11/19 Range/Units 21:31 21:31 21:31 WBC 9.2 (4.0-10.0) 10^3/ uL RBC 4.38 (4.1-5.3) 10^6/u L Hgb 13.7 (11.7-16.6) g/dL Hct 46.6 (42.0-52.0) % MCV 106.4 H (80-94) fL MCH 31.3 (28.0-34.0) pg MCHC 29.4 L (30.0-36.0) g/dL RDW 13.2 (12.1-15.1) % Plt Count 336 (130-400) 10^3/c mm MPV 10.8 H (7.4-10.4) fL Neut % (Auto) 85.6 % Lymph % (Auto) 5.5 % [place] % (Auto) 6.9 % Eos % (Auto) 1.4 % Baso % (Auto) 0.2 % Neut # (Auto) 7.9 H (1.8-7.7) 10^3/u L Lymph # (Auto) 0.5 L (0.8-4.8) 10^3/u L [place] # (Auto) 0.6 (0.2-0.9) 10^3/u L Eos # (Auto) 0.1 (0.0-0.8) 10^3/u L Baso # (Auto) 0.0 (0.0-0.1) 10^3/u L Nucleated RBC % (a uto) 0 % Nucleated RBCs # 0.0 /100WBC Sodium 158 H (136-145) mmol/L Potassium 4.2 (3.5-5.1) mmol/L Chloride 111 H (98-107) mmol/L Carbon Dioxide 35 H (22-29) mmol/L Anion Gap 16.2 (5-19) BUN 62 H (8-23) mg/dL Creatinine 1.5 H (0.7-1.2) mg/dL GFR Calculation 46.5 L (90-130) mL/min Glucose 111 (65-115) mg/dL Calculated Osmolal ity 326 H (285-295) mOsm/k g Lactic Acid 1.4 (0.5-2.2) mmol/L Calcium 10.1 (8.5-10.5) mg/dL Magnesium 3.2 H (1.7-2.3) mg/dL Total Bilirubin 0.3 (0.15-1.2) mg/dL AST 68 H (0-40) U/L ALT 129 H (0-41) U/L Alkaline Phosphata se 140 H (40-130) IU/L Troponin T Baselin e (0-15) ng/mL NT-Pro-B Natriuret Pep 783 H (0-125) pg/mL Total Protein 7.9 (6.6-8.7) g/dL Albumin 3.8 (3.5-5.2) g/dL Globulin 4.1 (1.3-4.6) g/dL 11/11/19 Range/Units 21:50 WBC (4.0-10.0) 10^3/ uL RBC (4.1-5.3) 10^6/u L Hgb (11.7-16.6) g/dL Hct (42.0-52.0) % MCV (80-94) fL MCH (28.0-34.0) pg MCHC (30.0-36.0) g/dL RDW (12.1-15.1) % Plt Count (130-400) 10^3/c mm MPV (7.4-10.4) fL Neut % (Auto) % Lymph % (Auto) % [place] % (Auto) % Eos % (Auto) % Baso % (Auto) % Neut # (Auto) (1.8-7.7) 10^3/u L Lymph # (Auto) (0.8-4.8) 10^3/u L [place] # (Auto) (0.2-0.9) 10^3/u L Eos # (Auto) (0.0-0.8) 10^3/u L Baso # (Auto) (0.0-0.1) 10^3/u L Nucleated RBC % (a uto) % Nucleated RBCs # /100WBC Sodium (136-145) mmol/L Potassium (3.5-5.1) mmol/L Chloride (98-107) mmol/L Carbon Dioxide (22-29) mmol/L Anion Gap (5-19) BUN (8-23) mg/dL Creatinine (0.7-1.2) mg/dL GFR Calculation (90-130) mL/min Glucose (65-115) mg/dL Calculated Osmolal ity (285-295) mOsm/k g Lactic Acid (0.5-2.2) mmol/L Calcium (8.5-10.5) mg/dL Magnesium (1.7-2.3) mg/dL Total Bilirubin (0.15-1.2) mg/dL AST (0-40) U/L ALT (0-41) U/L Alkaline Phosphata se (40-130) IU/L Troponin T Baselin e 69 H (0-15) ng/mL NT-Pro-B Natriuret Pep (0-125) pg/mL Total Protein (6.6-8.7) g/dL Albumin (3.5-5.2) g/dL Globulin (1.3-4.6) g/dL Imaging Data^: CXR: Radiologist's impression: [address] [id number] XRay Report Signed Patient: Edgar Thomas #: [id number] : 1Acct#:[id number] Age/Sex: 69 / MADM Date: 11/11/19 Loc: ERRoom/Bed: Attending Dr: Ordering Provider/Ordering MD: Carmen Leslie DO Date of Service: 11/11/19 Procedure(s): XR chest 1V portable [id number] Accession Number(s): [id number] Report Number: [id number] PROCEDURE INFORMATION: Exam: XR Chest, 1 View Exam date and time: 11/11/2019 9:12 PM Age: 69 years old Clinical indication: Shortness of breath; Additional info: Cough TECHNIQUE: Imaging protocol: XR of the chest Views: 1 view. COMPARISON: CR Chest 1 [place] [id number] 06/15/2019 11:05 AM FINDINGS: Tubes, catheters and devices: There is a right subclavian catheter whose tip is in the superior vena cava. There is a tracheostomy. Lungs: Unremarkable. No consolidation. Pleural space: Unremarkable. No pleural effusion. No pneumothorax. Heart/Mediastinum: Unremarkable. No cardiomegaly. Bones/joints: Unremarkable. XR/XR chest 1V portable [id number] IMPRESSION: There are no acute concerning abnormalities. Dictated By:Neri Perera MD Signed By:Neri Perera MDSigned Date/Time:11/11/19 EKG Data^: EKG 1: Attestation: I personally reviewed and interpreted this EKG as follows: EKG Interpretation Date: 11/11/19 EKG interpretation time: 21:28 Interpretation: Atrial fibrillation with rapid ventricular response with a ventricular rate at 123. Right axis deviation, right bundle branch block. Discharge Plan Discharge Patient Disposition: Placed in Observation Clinical Impression: Acute exacerbation of chronic obstructive airways disease, Atrial fibrillation, CKD (chronic kidney disease), Congestive heart failure (CHF), Diabetes mellitus, Acute hypernatremia Condition: Stable Prescriptions: No Action lidocaine HCl 2 % Solution 5 ml topical Q3H RF: 0 morphine 10 mg/5 mL Solution 500 mg PO BID RF: 0 albuterol sulfate 0.63 mg/3 mL Solution For Nebulization RF: 0 Symbicort 80-4.5 mcg/actuation Hfa Aerosol Inhaler INHALATION RF: 0 metoprolol succinate 25 mg Capsule,Sprinkle,Er 24hr BID RF: 0 spironolactone 50 mg Tablet 50 mg PO DAILY RF: 0 apixaban 5 mg Tablet 5 mg PO BID RF: 0 pravastatin 40 mg Tablet 40 mg PO DAILY RF: 0 ranitidine HCl 150 mg Tablet 150 mg PO DAILY RF: 0 Coding Level of Care Code ED Store Sales Leader for Chg Fwd Exam Comprehensive The documentation recorded by the Sergey [place] Valerie R, accurately reflects the service I personally performed and the decisions made by Anuj gold Eli N Nov 11, 2019 20:55
--- NOTE | 2019-11-11 21:11 | XRR_ITS ---
PROCEDURE INFORMATION: Exam: XR Chest, 1 View Exam date and time: 11/11/2019 9:12 PM Age: 69 years old Clinical indication: Shortness of breath; Additional info: Cough TECHNIQUE: Imaging protocol: XR of the chest Views: 1 view. COMPARISON: CR Chest 1 [place] [id number] 06/15/2019 11:05 AM FINDINGS: Tubes, catheters and devices: There is a right subclavian catheter whose tip is in the superior vena cava. There is a tracheostomy. Lungs: Unremarkable. No consolidation. Pleural space: Unremarkable. No pleural effusion. No pneumothorax. Heart/Mediastinum: Unremarkable. No cardiomegaly. Bones/joints: Unremarkable. XR/XR chest 1V portable [id number] IMPRESSION: There are no acute concerning abnormalities.
[2019-11-11] MEDS: levofloxacin-dextrose 5 % 750 MG/150 ML PREMIX 150 MG IV (21:48)
[2019-11-11 21:55] VITALS: PULSE 121; RESP 20; O2SAT 95
[2019-11-11] MEDS: levalbuterol 1.25 mg/3 mL Neb 3.75 MG INHALATION (21:55)
[2019-11-11 22:03] LABS: Basophils % 0.2 %; Eosinophils # 0.1 10^3/uL (0.0-0.8); Eosinophils % 1.4 %; Hematocrit 46.6 % (42.0-52.0); Hemoglobin 13.7 g/dL (11.7-16.6); Lymphocytes # 0.5 10^3/uL (0.8-4.8); Lymphocytes % 5.5 %; Mean Corpuscular HGB Conc 29.4 g/dL (30.0-36.0); Mean Corpuscular Hemoglobin 31.3 pg (28.0-34.0); Mean Corpuscular Volume 106.4 fL (80-94); Mean Platelet Volume 10.8 fL (7.4-10.4); Monocytes # 0.6 10^3/uL (0.2-0.9); Monocytes % 6.9 %; Neutrophils # 7.9 10^3/uL (1.8-7.7); Neutrophils % 85.6 %; Nucleated Red Blood Cells % 0 %; Platelet Count 336 10^3/cmm (130-400); Red Blood Count 4.38 10^6/uL (4.1-5.3); Red Cell Distribution Width 13.2 % (12.1-15.1); White Blood Count 9.2 10^3/uL (4.0-10.0)
[2019-11-11 22:23] LABS: Lactic Sepsis W/Reflex 1.4 mmol/L (0.5-2.2)
[2019-11-11 22:32] LABS: Alanine Aminotransferase 129 U/L (0-41); Albumin Level 3.8 g/dL (3.5-5.2); Alkaline Phosphatase 140 IU/L (40-130); Anion Gap 16.2 (5-19); Aspartate Amino Transferase 68 U/L (0-40); Blood Urea Nitrogen 62 mg/dL (8-23); Calcium 10.1 mg/dL (8.5-10.5); Carbon Dioxide 35 mmol/L (22-29); Chloride 111 mmol/L (98-107); Globulin 4.1 g/dL (1.3-4.6); Glomerular Filtration Rate 46.5 mL/min (90-130); Glucose 111 mg/dL (65-115); Magnesium 3.2 mg/dL (1.7-2.3); NT Pro B Type Natriuretic Pept 783 pg/mL (0-125); Osmolality Calculated 326 mOsm/kg (285-295); Potassium 4.2 mmol/L (3.5-5.1); Sodium 158 mmol/L (136-145); Total Bilirubin 0.3 mg/dL (0.15-1.2); Total Protein 7.9 g/dL (6.6-8.7)
[2019-11-11 22:47] LABS: Troponin(5th) Baseline 69 ng/mL (0-15)
[2019-11-11] MEDS: sodium chloride 0.9% 1,000 ML 999 ML IV (22:50)
--- NOTE | 2019-11-11 23:11 | ECG_ITS ---
Measurements Intervals [place] Rate: 123 P: NM: 0 QRS: -86 QRSD: 128 T: 39 QT: 339 QTc: 485 ATRIAL FIBRILLATION WITH RAPID VENTRICULAR RESPONSE LEFT AXIS DEVIATION [QRS AXIS < -30] RIGHT BUNDLE BRANCH BLOCK [120+ ms QRS DURATION, UPRIGHT V1, 40+ ms S IN I/aVL/V4/V5/V6] No previous ECG available for comparison Electronically Signed On 11-12-2019 9:46:20 CDT by Renetta Whalen M.D. [email or web address]
--- NOTE | 2019-11-11 23:11 | P.HP_ITS ---
Providers/Chief Complaint Admitting Physician: Dr Clarke Primary Care Provider: [place] in [place] Chief Complaint: sob History of Present Illness Edgar Thomas is a 69 year old male who presented to the emergency room with increasing shortness of breath and cough. Patient has a history of COPD as well as squamous cell carcinoma of the supraglottis. He has tracheostomy and a PEG tube. He has had increased output from his tracheostomy site with very thick yellow sputum. He was treated with a course of Augmentin that he completed yesterday. He has had wheezing that has worsened in the last 24 hours or so. He is not normally on oxygen. He is having a harder time getting mucus up. Very rarely will he noticed a speck of possible blood but never elpidio hemoptysis. No reported fevers. Has tolerated his tube feeds okay although did not feel like taking them yesterday afternoon due to his breathing. No report of any vomiting or regurgitation. Patient did develop diarrhea with initiation of antibiotic therapy. While on the antibiotics he was having 5+ loose bowel movements a day more so than his usual. No blood in his stools. Denies diarrhea in the last 24 hours or so. With his tube feeds, he uses Nutren 2.02 two boxes 3 times a day, each box followed by 60 mL's of free water. No recent changes to this regimen. He occasionally substitutes Ensure for this. He does get laboratory studies checked every couple of weeks. Last were done on October 12. At that time BUN and creatinine were 28/0.9. Sodium 140, chloride 98. Today patient was found to have a sodium of 158, chloride of 111 and BUN and creatinine of 62/1.5. He is chronically on diuretic therapy in addition to the recent diarrhea that he has had. With the degree of wheezing, tachycardia, clinical evidence of dehydration and other findings he is being admitted for initiation of further treatment and monitoring. Review of Systems Const: Reports: change in appetite (Did not feel like taking his feeds last evening), fatigue and other (Does not sleep well); Denies: fever or chills Eyes: Denies: change in vision ENMT: Reports: throat pain (Chronic rather than acute), dry mouth and other (Takes nothing by mouth); Denies: nasal congestion Card: Reports: chest pain (With coughing), palpitations, edema (Denies recent increase in edema), lightheadedness and shortness of breath on exertion Resp: Reports: shortness of breath, productive cough, non-productive cough, wheezing, change in phlegm color and other (Very thick phlegm) GI: Reports: diarrhea and other (Tolerating tube feeds, no acute issues with feeding tube); Denies: abdominal pain, nausea, vomiting, blood in stool or black tarry stool : Reports: decreased urine ouput; Denies: difficulty urinating Skin/Breast: Reports: other (Chronic stasis changes not new, left lower extremity more prominent than right in terms of color changes) Neuro: Reports: numbness in extremities (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) and weakness in extremities (General) Nilson/Lymph: Reports: easy bruising and easy bleeding (denies anything significant recently) Medications/Allergies Home Medications Medication Instructions Recorded Confirmed Last Taken Type albuterol sulfate 11/11/19 Unknown History apixaban 5 mg PO BID 11/11/19 11/11/19 Unknown History budesonide-formoterol [Symbicort] INHALATION 11/11/19 Unknown History lidocaine HCl 5 ml TOPICAL Q3H 11/11/19 11/11/19 Unknown History metoprolol succinate BID 11/11/19 Unknown History morphine 500 mg PO BID 11/11/19 11/11/19 Unknown History pravastatin 40 mg PO DAILY 11/11/19 11/11/19 Unknown History ranitidine HCl 150 mg PO DAILY 11/11/19 11/11/19 Unknown History spironolactone 50 mg PO DAILY 11/11/19 11/11/19 Unknown History Allergies Allergy/AdvReac Type Severity Reaction Status Date / Time No Known Allergies Allergy Verified 11/11/19 21:14 PFSH Acute PFSH: Medical History Atrial fibrillation chronic CKD (chronic kidney disease) 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 Colon cancer adjuvant chemo/FOLFOX and resection in past COPD (chronic obstructive pulmonary disease) Hyperlipidemia Hypertension Neuropathy post chemotherapy for colon cancer Obstructive sleep apnea Has not used CPAP since he got tracheostomy Squamous cell carcinoma of supraglottis right, 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 Received carboplatin/xeloda. Treatment completed 08/09/19. Surgical History History of colon resection History of tonsillectomy History of ventral hernia repair mesh Port-A-Cath in place Ja 06/[address] Uses feeding tube Family History Mother Cancer breast Dementia Hypertension Diabetes Brother Diabetes Sister Diabetes Social History Smoking and tobacco status: never smoked Alcohol intake: never Marital status: Vitals/I&O/Wt Last Vital Signs Temp 98.0 F 11/11/19 21:10 Pulse 100 11/11/19 21:10 Resp 20 H 11/11/19 21:10 BP 112/61 11/11/19 21:10 Pulse Ox 93 11/11/19 21:10 Weight last 48 hrs Weight 108.862 kg Physical Exam Const: COMMON NORMALS: alert GENERAL APPEARANCE: cooperative HENMT: HEAD & SCALP: normocephalic and atraumatic NOSE: no nasal discharge MOUTH: other (Dry mouth) TEETH & GINGIVA: Yes edentulous Eye: COMMON NORMALS: PERRL and EOMs intact bilaterally Neck/C-Spine: GENERAL: Yes other (Tracheostomy site intact, thick yellow sputum noted) Chest: OTHER: Port-A-Cath right Resp: EFFORT & INSPECTION: Yes actively coughing productive and rattling, Yes retractions supraclavicular; no intercostal retractions and Yes uses accessory muscles AUSCULTATION: wheezes expiratory wheezes, inspiratory wheezes and throughout Cardio: JUGULAR VENOUS DISTENTION: no JVD RATE: tachycardic RHYTHM: abnormal rhythm irregularly irregular GI: INSPECTION: Yes GI tube present AUSCULTATION: Yes normoactive bowel sounds PALPATION: Yes soft and No tender Back/Pelvis: COMMON NORMALS: no CVA tenderness THORACIC SPINE/UPPER BACK: Yes normal to inspection Extremity: COMMON NORMALS: no joint enlargement GENERAL: Yes edema (2-3+) Neuro: COMMON NORMALS: oriented x3 and moves all extremities SPEECH: other (Minimal vocalizations secondary to tracheostomy, does not have a Passy-Randolph valve) MOTOR EXAM: other (Handgrip equal) Skin: NARRATIVE SKIN EXAM: Chronic stasis changes noted to both lower extremities left more so than right. No open wounds. Patient's feet are a bit erythematous. No open wounds between the toes. On the right heel there is significant hyperkeratotic skin with 1 old scab on it. Data : 11/11/19 21:31 11/11/19 21:31 Micro: Microbiology 11/11/19 21:31 Blood Culture - Preliminary Blood SPECIMEN COLLECTED 11/11/19 21:50 Blood Culture - Preliminary Blood SPECIMEN COLLECTED A&P Assessment and plan (1) Acute exacerbation of chronic obstructive airways disease: Chest x-ray is not that remarkable. Tracheitis versus bronchitis of either viral or bacterial origin within the differential. White count is not elevated but he does have some lymphopenia. This is, however, not a new finding for him. He just completed a course of Augmentin yesterday. Not normally on oxygen. At times with some borderline oxygen saturations. COVID 19 testing was performed in the emergency room. Status: Acute Code(s): J44.1 - Chronic obstructive pulmonary disease with (acute) exacerbation (2) Acute kidney injury: In a patient with history of chronic kidney disease stage II. I suspect this is in part due to volume depletion from recent diarrhea, potentially with impact of medications. Despite the peripheral edema he looks quite dry otherwise. Is a bit more azotemic than I would expect but no indication of bleeding beyond occasional specks of blood in sputum. Is on chronic anticoagulation. 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 Susupect related to afib with RVr plus/minus renal injury Status: Acute Code(s): R79.89 - Other specified abnormal findings of blood chemistry (7) Squamous cell carcinoma of supraglottis: Completed chemo and radiation 08/09/19. Received carboplatin/xeloda. Status: Chronic Code(s): C32.1 - Malignant neoplasm of supraglottis (8) Macrocytosis: Progressive last few months with current anemia Status: Acute Code(s): D75.89 - Other specified diseases of blood and blood-forming organs (9) Tracheostomy in place: Does not have Passy-Randolph valve Status: Chronic Code(s): Z93.0 - Tracheostomy status (10) Uses feeding tube: Usually on Nutren 2.0 2 boxes tid each followed with 60 ml water Status: Acute Code(s): Z97.8 - Presence of other specified devices Additional A&P Information Inpatient admission secondary to lack of improvement with attempted outpatient management IV fluids Recheck renal function and sodium in the morning Urine electrolytes Breathing treatments, including inhaled steroids Doxycycline Add systemic steroids given the degree of wheezing Routine tracheostomy care Monitor oxygen levels Follow-up pending COVID 19 testing Follow-up pending blood cultures Telemetry monitoring Continue beta-blockade, monitor for need for additional rate controlling agents Follow-up pending serial cardiac enzymes Monitor I's and O's closely Check TSH Check B12 and folate Continue Eliquis which will provide appropriate VTE prophylaxis Routine tracheostomy care Will substitute Ensure for patient's usual feeds. We will continue current free water flushes. Depending on clinical course may need to make adjustments to her routine however I think recent loose stools probably contributed. Attestations Medical Necessity Statement*: Anticipated stay greater than 2 midnights in a patient with recurrent symptoms, acute kidney injury and hypernatremia developing after completing a course of attempted management in the outpatient setting. With patient's comorbid conditions at high risk of cooperative clinical decline. Additionally he has never had a presentation like this before. He has a prior history of sleep apnea and carries a diagnosis of COPD but this is the first time he has had such significant difficulty breathing by his report. It is also the first time he has had difficulty managing secretions from his trach site. Plans are as noted above. Coding Level of Care Code Acute Cutting Machine Tender for Paul Fwd Diagnoses Acute exacerbation of chronic obstructive airways disease J44.1 Acute kidney injury N17.9 Hypernatremia E87.0 Atrial fibrillation I48.11 Atrial fibrillation type: longstanding persistent Chronic anticoagulation Z79.01 Elevated brain natriuretic peptide (BNP) level R79.89 Squamous cell carcinoma of supraglottis C32.1 Macrocytosis D75.[address] Z93.0 Uses feeding tube Z97.8
--- NOTE | 2019-11-11 23:12 | PC.NURSE ---
During primary assessment, pt having noticeable difficulties clearing his trach by coughing. RT called to suction trach tube. Pt states relief from trach blockage after suctioning complete
[2019-11-11 23:36] LABS: Influenza A by IFA Negative (Negative); Influenza B by IFA Negative (Negative)
--- NOTE | 2019-11-11 23:50 | PC.NURSE ---
Pt unable to provide urine specimen
[2019-11-12] VITALS (19 sets, daily range): BP systolic 98–122; BP diastolic 47–82; PULSE 88–134; RESP 16–24; TEMP 36.7–37.2; O2SAT 90–96
[2019-11-12 00:26] LABS: Troponin 5 2HR 56.49 ng/mL (0-15)
--- NOTE | 2019-11-12 00:49 | PC.NURSE ---
Pt transfer delayed due to Dr Muller called out for emergency. Floor notified @ [phone]
--- NOTE | 2019-11-12 01:26 | PC.NURSE ---
RN reviewed and agrees with assessment.
[2019-11-12] MEDS: acetaminophen 325 mg Tablet 650 MG PO (02:42)
[2019-11-12] MEDS: doxycycline 100 mg Tablet PO (02:43)
[2019-11-12] MEDS: sodium chloride 0.9% 1,000 ML 100 ML IV ×3 (02:44→19:54)
--- NOTE | 2019-11-12 03:11 | ECG_ITS ---
Measurements Intervals Arthur Rate: 119 P: MS: 0 QRS: -84 QRSD: 123 T: 4 QT: 343 QTc: 483 ATRIAL FIBRILLATION WITH RAPID VENTRICULAR RESPONSE WITH ABERRANT CONDUCTION OR VENTRICULAR PREMATURE COMPLEXES MARKED LEFT AXIS DEVIATION [QRS AXIS < -30] RIGHT BUNDLE BRANCH BLOCK [120+ ms QRS DURATION, UPRIGHT V1, 40+ ms S IN I/aVL/V4/V5/V6] No previous ECG available for comparison Electronically Signed On 11-12-2019 9:45:27 CDT by Renetta Whalen M.D. [email or web address]
[2019-11-12 03:30] LABS: Bacteria Urine 1+; Bilirubin Urine Neg (NEGATIVE); Blood Urine Neg (Negative); Glucose Urine UA Norm (Normal); Ketones Urine Negative (Negative); Leukocyte Esterase Urine Negative (Negative); Mucus Urine 2+; Nitrate Urine Negative (Negative); Protein Urine Neg (Negative); RBC Urine 0-4 /hpf (0-2); Specific Gravity, Urine 1.015 (1.005-1.030); Squamous Epithelial Cell Urine 0-4 (0-5); Urine Appearance Clear (CLEAR); Urine Color Yellow (Yellow); Urobilinogen Urine Norm (Negative); WBC Urine 0-4 /hpf (0-5); pH Urine 5 (5-7)
[2019-11-12] MEDS: ipratropium 0.5 mg/2.5 mL Neb INHALATION ×6 (03:53→23:15)
[2019-11-12 04:56] LABS: Basophils % 0.2 %; Hematocrit 45.1 % (42.0-52.0); Lymphocytes # 0.2 10^3/uL (0.8-4.8); Lymphocytes % 1.8 %; Mean Corpuscular HGB Conc 28.8 g/dL (30.0-36.0); Mean Corpuscular Hemoglobin 31.2 pg (28.0-34.0); Mean Corpuscular Volume 108.2 fL (80-94); Mean Platelet Volume 10.9 fL (7.4-10.4); Monocytes # 0.1 10^3/uL (0.2-0.9); Monocytes % 0.5 %; Neutrophils # 10.1 10^3/uL (1.8-7.7); Nucleated Red Blood Cells % 0 %; Platelet Count 287 10^3/cmm (130-400); Red Blood Count 4.17 10^6/uL (4.1-5.3); Red Cell Distribution Width 13.2 % (12.1-15.1); White Blood Count 10.4 10^3/uL (4.0-10.0)
[2019-11-12 05:02] LABS: Urine Creatinine 92 mg/dL (39-259); Urine Random Sodium 25 mmol/L
[2019-11-12 05:09] LABS: Alanine Aminotransferase 119 U/L (0-41); Albumin Level 3.6 g/dL (3.5-5.2); Alkaline Phosphatase 146 IU/L (40-130); Anion Gap 19.7 (5-19); Blood Urea Nitrogen 57 mg/dL (8-23); Calcium 9.2 mg/dL (8.5-10.5); Carbon Dioxide 32 mmol/L (22-29); Chloride 110 mmol/L (98-107); Globulin 2.7 g/dL (1.3-4.6); Glomerular Filtration Rate 40.3 mL/min (90-130); Glucose 315 mg/dL (65-115); Osmolality Calculated 335 mOsm/kg (285-295); Potassium 4.7 mmol/L (3.5-5.1); Sodium 157 mmol/L (136-145); Total Bilirubin 0.3 mg/dL (0.15-1.2); Total Protein 6.3 g/dL (6.6-8.7)
[2019-11-12 05:12] LABS: Troponin 5 6HR 49.04 ng/mL (0-15)
[2019-11-12 05:28] LABS: Folate Level 16.6 ng/mL (4.5-32.2)
[2019-11-12 05:31] LABS: Procalcitonin 0.14 ng/mL (0-0.5); Thyroid Stimulating Hormone 1.32 uIU/mL (0.27-4.20); Vitamin B12 706 pg/mL (232-1245)
[2019-11-12 05:41] LABS: Aspartate Amino Transferase 62 U/L (0-40)
[2019-11-12] MEDS: budesonide 0.5 mg/2 mL Neb INHALATION ×2 (07:55→19:42)
[2019-11-12] MEDS: apixaban 5 mg Tablet PEG-TUBE ×2 (08:05→17:04)
[2019-11-12] MEDS: famotidine 20 mg Tablet PEG-TUBE ×2 (08:05→17:03)
[2019-11-12] MEDS: lactobacillus 1 Tablet 1 TAB PEG-TUBE ×2 (08:05→17:03)
[2019-11-12] MEDS: doxycycline 100 mg Tablet PEG-TUBE ×2 (08:05→17:04)
[2019-11-12] MEDS: metoprolol tartrate 25 mg Tablet PEG-TUBE ×2 (08:06→17:03)
[2019-11-12] MEDS: atorvastatin 40 mg Tablet 20 MG PT (08:06)
--- NOTE | 2019-11-12 10:26 | P.PN_ITS ---
Subjective Subjective: Interval history: Chart reviewed, AM labs noted. Patient seen and examined, resting in bed, no apparent distress, no complaints currently. Self suctions as needed. Remains on room air, hemodynamically stable. COVID-19 testing negative. Would like us to keep updated. Medications: Reviewed: Yes Medication Review Details: Active Medications Generic Name Dose Route Start Last Admin Trade Name Freq PRN Reason Stop Dose Admin Acetaminophen 650 mg 11/12/19 03:41 Tylenol Liquid PO Q4H PRN MILD PAIN OR INCR EASE TEMP Hydrocodone Bitart /Acetaminophen 10 ml 11/12/19 03:40 Hycet 7.5-325 Mg /15 Ml PEG-TUBE Q4H PRN MODERATE PAIN Al Hydrox/Mg Florence x/Simethicone 15 ml 11/12/19 02:36 Maalox PO Q6H PRN INDIGESTION Apixaban 5 mg 11/12/19 09:00 11/12/19 08:05 Eliquis PEG-TUBE 5 mg BID YECENIA Administration Atorvastatin Calci um 20 mg 11/12/19 09:00 11/12/19 08:06 Lipitor PT 20 mg DAILY YECENIA Administration Budesonide 0.5 mg 11/12/19 08:00 11/12/19 07:55 Pulmicort INHALATION 0.5 mg BID.RESPIRATORY S CH Administration Doxycycline Monohy drate 100 mg 11/12/19 09:00 11/12/19 08:05 Vibramycin PEG-TUBE 100 mg BID YECENIA Administration Protocol Famotidine 20 mg 11/12/19 09:00 11/12/19 08:05 Pepcid Tab PEG-TUBE 20 mg BID YECENIA Administration Sodium Chloride 1,000 mls @ 100 m ls/hr 11/12/19 01:31 11/12/19 02:44 Sodium Chloride 0.9% IV 100 mls/hr .Q10H YECENIA Administration Ipratropium Bromid e 0.5 mg 11/12/19 02:45 11/12/19 07:55 Atrovent Neb INHALATION 0.5 mg Q4H.RESPIRATORY S CH Administration Lactobacillus Acid ophilus 1 tab 11/12/19 09:00 11/12/19 08:05 Floranex PEG-TUBE 1 tab BID YECENIA Administration Methylprednisolone Sodium Succinate 60 mg 11/12/19 11:00 Solu-Medrol IVP Q8H YECENIA Metoprolol Tartrat e 25 mg 11/12/19 09:00 11/12/19 08:06 Lopressor PEG-TUBE 25 mg BID YECENIA Administration Morphine Sulfate 4 mg 11/12/19 01:31 Morphine IVP Q4H PRN SEVERE PAIN Non-Formulary Medi cation 5 ml 11/12/19 02:44 Lidocaine Hcl TOPICAL Q3H PRN oral discomfort Ondansetron HCl 4 mg 11/12/19 01:31 Zofran IVP Q6H PRN NAUSEA AND VOMITI NG No Known Allergies Allergy (Verified 11/11/19 21:14) Vitals/I&O/Wt Last Vital Signs Temp 99.0 F 11/12/19 08:00 Pulse 96 11/12/19 08:10 Resp 20 H 11/12/19 08:10 BP 112/72 11/12/19 08:00 Pulse Ox 94 11/12/19 08:10 11/11/19 11/12/19 11/12/19 22:59 06:59 14:59 Intake Total 780 / 780 Balance 780 / 780 Weight last 48 hrs Weight 108.862 kg Physical Exam Const: COMMON NORMALS: no apparent distress and oriented x3 GENERAL APPEARANCE: cooperative and comfortable NUTRITIONAL APPEARANCE: obese ORIENTATION/CONSCIOUSNESS: Yes awake HENMT: COMMON NORMALS: normocephalic, head/scalp atraumatic, hearing grossly normal bilaterally and moist oral mucous membranes HEAD & SCALP: normocephalic and atraumatic Eye: COMMON NORMALS: PERRL, EOMs intact bilaterally and conjunctivae normal CONJUNCTIVA: Yes conjunctivae normal PUPIL: Yes PERRL Neck/C-Spine: GENERAL: Yes tracheostomy present Resp: COMMON NORMALS: normal respiratory effort, no retractions and no use of accessory muscles EFFORT & INSPECTION: Yes able to speak in complete sentences, Yes symmetric chest movement and No tachypneic AUSCULTATION: wheezes expiratory wheezes Cardio: COMMON NORMALS: regular rate, S1 normal heart sound, S2 normal heart sound and no murmurs RATE: regular rate RHYTHM: abnormal rhythm irregularly irregular HEART SOUNDS: S1 normal and S2 normal GI: COMMON NORMALS: normal to inspection, nondistended, normoactive bowel sounds, soft to palpation and non-tender INSPECTION: Yes other (PEG tube in place) PALPATION: Yes soft Extremity: COMMON NORMALS: normal to inspection, full ROM and no clubbing, cyanosis or edema; negative for no pedal edema Neuro: COMMON NORMALS: oriented x3, moves all extremities, no focal motor deficits and no sensory deficits noted Psych: COMMON NORMALS: mental status grossly normal, thought process normal, cooperative and affect normal SPEECH: Yes other (mouths his words) THOUGHT PROCESS: normal thought process Skin: COMMON NORMALS: no rashes or lesions noted, no jaundice, no petechiae and no mottling GENERAL SKIN EXAM: no rashes or lesions noted Data : 11/12/19 04:04 11/12/19 04:04 Micro: Microbiology 11/11/19 21:31 Blood Culture - Preliminary Blood SPECIMEN COLLECTED 11/11/19 21:50 Blood Culture - Preliminary Blood SPECIMEN COLLECTED A&P Assessment and plan (1) COPD (chronic obstructive pulmonary disease): -Acute COPD exacerbation as evidenced by wheezing, increased sputum production -Chest x-ray unremarkable -Minimal leukocytosis, normal procalcitonin -Continue IV steroids, empiric doxycycline -Continue to monitor respiratory status, supplemental oxygen as needed -Follow-up blood cultures -Negative influenza, COVID-19 negative; discontinue isolation precautions Status: Acute Qualifiers: COPD type: COPD with acute exacerbation Qualified Code(s): J44.1 - Chronic obstructive pulmonary disease with (acute) exacerbation Code(s): J44.9 - Chronic obstructive pulmonary disease, unspecified (2) Squamous cell carcinoma of supraglottis: -Has known squamous cell carcinoma of the right supraglottis -completed chemoradiation (08/09/19) -Follows up with Dr. Charles, Dr. Banks -s/p PEG tube; continue tube feeds -s/p tracheostomy, suction, trach care as needed, unable to vocalize as no Passy-Svetlana valve Status: Chronic Code(s): C32.1 - Malignant neoplasm of supraglottis (3) Hypernatremia: -acute hypernatremia; likely due to dehydration given poor oral intake and diarrhea recently -prior baseline Na wnl -on IVF, continue to monitor Na Status: Acute Code(s): E87.0 - Hyperosmolality and hypernatremia (4) Atrial fibrillation: -presented in atrial fibrillation with RVR, likely triggered by acute COPD exacerbation. 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 Time Spent in Patient Care: 16 - 35 minutes (>than 50% of time spent in counselling and/or direct pt care on unit) . Coding Level of Care Code Acute Marine Pipefitter for Chg Fwd Exam Comprehensive Diagnoses COPD (chronic obstructive pulmonary disease) J44.1 COPD type: COPD with acute exacerbation Squamous cell carcinoma of supraglottis C32.1 Hypernatremia E87.0 Atrial fibrillation I48.11 Atrial fibrillation type: longstanding persistent
--- NOTE | 2019-11-12 12:07 | PC.CHAP ---
Pastoral Care Encounter/Spiritual Assessment Type of Contact [] Declined cutter hot knife visit [] Patient/Family/Request visit [] Outpatient visit [] Follow-up visit [] Physician referral [] Code/Alert [] Routine visit [] Staff referral [] Actively dying [] Patient sleeping [] Family support [] [] Out of room [] Palliative care [] [] Receiving care in room [] Pre-surgical visit [] Trauma [] Long length of stay [] ICU visit [] Other: Relational/Emotional Strength [] Patient feels connected with others/family/visitors/staff [] Distress [] Loneliness/isolation [] Abandonment Spirituality of Patient [] Person of Nati [] Attends Yarsani of their Nati [] Believes in Prayer [] Reads Bible or Mormon materials [] There are Spiritual issues to be addressed Senior Treasury Analyst Interventions [] Prayer [] Active listening [] Non-anxious presence [] Spiritual/emotional support [] Crisis/trauma care [] Spiritual counseling [] Bereavement support [] Provided bereavement packet [] Provided Bible/devotional materials [] Provided toy/stuffed animal, coloring book to patient or family member [] Provided Communion [] Anointing/[place] [] Salvation [] Completed spiritual assessment [] Other: Impact on Illness or Injury [] Angry [] Fearful [] Anxious [] Often cries [] Exhaustion [] Unable to work [] Unable to attend buddhist [] Unable to walk/stand [] Unable to read [] Unable to drive [] Unable to eat/drink [] Unable to sleep [] Unable to be with family [] Patient intubated [] Other: Summary PRECAUTIONS EXCEPTION Time spent with patient
[2019-11-12] MEDS: lanolin oint 7 gm 1 APPLIC TOPICAL (16:49)
[2019-11-13] VITALS (14 sets, daily range): BP systolic 109–156; BP diastolic 72–85; PULSE 81–114; RESP 16–24; TEMP 36.7–37.2; O2SAT 88–93
[2019-11-13] MEDS: ipratropium 0.5 mg/2.5 mL Neb INHALATION ×4 (04:03→20:11)
[2019-11-13 05:28] LABS: Basophils % 0.1 %; Hematocrit 39.8 % (42.0-52.0); Hemoglobin 11.5 g/dL (11.7-16.6); Lymphocytes # 0.3 10^3/uL (0.8-4.8); Mean Corpuscular HGB Conc 28.9 g/dL (30.0-36.0); Mean Corpuscular Volume 107.3 fL (80-94); Monocytes # 0.3 10^3/uL (0.2-0.9); Monocytes % 2.1 %; Neutrophils # 13.4 10^3/uL (1.8-7.7); Neutrophils % 95.4 %; Nucleated Red Blood Cells % 0 %; Platelet Count 289 10^3/cmm (130-400); Red Blood Count 3.71 10^6/uL (4.1-5.3); Red Cell Distribution Width 13.2 % (12.1-15.1); White Blood Count 14.1 10^3/uL (4.0-10.0)
[2019-11-13 05:43] LABS: Anion Gap 12.1 (5-19); Blood Urea Nitrogen 53 mg/dL (8-23); Calcium 9.4 mg/dL (8.5-10.5); Carbon Dioxide 33 mmol/L (22-29); Chloride 114 mmol/L (98-107); Creatinine Clr Calc Pharmacy 73.9373; Glomerular Filtration Rate 60.2 mL/min (90-130); Glucose 188 mg/dL (65-115); Osmolality Calculated 321 mOsm/kg (285-295); Potassium 5.1 mmol/L (3.5-5.1); Sodium 154 mmol/L (136-145)
[2019-11-13] MEDS: budesonide 0.5 mg/2 mL Neb INHALATION ×2 (08:10→20:11)
[2019-11-13] MEDS: atorvastatin 40 mg Tablet 20 MG PT (09:56)
[2019-11-13] MEDS: apixaban 5 mg Tablet PEG-TUBE ×2 (09:56→17:11)
[2019-11-13] MEDS: sodium chloride 0.9% 1,000 ML 100 ML IV ×2 (09:56→20:25)
[2019-11-13] MEDS: doxycycline 100 mg Tablet PEG-TUBE ×2 (09:56→17:11)
[2019-11-13] MEDS: metoprolol tartrate 25 mg Tablet PEG-TUBE ×2 (09:57→17:11)
[2019-11-13] MEDS: famotidine 20 mg Tablet PEG-TUBE ×2 (09:57→17:11)
[2019-11-13] MEDS: lactobacillus 1 Tablet 1 TAB PEG-TUBE ×2 (09:57→17:11)
--- NOTE | 2019-11-13 11:21 | PM.PN ---
Subjective Subjective: Interval history: Remains on RA, AM labs noted, improving hypernatremia, increased leukocytosis likely secondary to steroids. Hemodynamically stable. Had 550 mL urine output overnight. Per his report, is having to suction fairly frequently and has lots of secretions when he does. Off isolation precautions. Tolerating tube feeds well. Medications: Reviewed: Yes Medication Review Details: Active Medications Generic Name Dose Route Start Last Admin Trade Name Freq PRN Reason Stop Dose Admin Acetaminophen 650 mg 11/12/19 03:41 Tylenol Liquid PO Q4H PRN MILD PAIN OR INCR EASE TEMP Hydrocodone Bitart /Acetaminophen 10 ml 11/12/19 03:40 Hycet 7.5-325 Mg /15 Ml PEG-TUBE Q4H PRN MODERATE PAIN Al Hydrox/Mg [place] x/Simethicone 15 ml 11/12/19 02:36 Maalox PO Q6H PRN INDIGESTION Apixaban 5 mg 11/12/19 09:00 11/13/19 09:56 Eliquis PEG-TUBE 5 mg BID YECENIA Administration Atorvastatin Calci um 20 mg 11/12/19 09:00 11/13/19 09:56 Lipitor PT 20 mg DAILY YECENIA Administration Budesonide 0.5 mg 11/12/19 08:00 11/13/19 08:10 Pulmicort INHALATION 0.5 mg BID.RESPIRATORY S CH Administration Doxycycline Monohy drate 100 mg 11/12/19 09:00 11/13/19 09:56 Vibramycin PEG-TUBE 100 mg BID YECENIA Administration Protocol Famotidine 20 mg 11/12/19 09:00 11/13/19 09:57 Pepcid Tab PEG-TUBE 20 mg BID YECENIA Administration Sodium Chloride 1,000 mls @ 100 m ls/hr 11/12/19 01:31 11/13/19 09:56 Sodium Chloride 0.9% IV 100 mls/hr .Q10H YECENIA Administration Ipratropium Bromid e 0.5 mg 11/13/19 15:00 Atrovent Neb INHALATION Q6H.RESPIRATORY S CH Lactobacillus Acid ophilus 1 tab 11/12/19 09:00 11/13/19 09:57 Floranex PEG-TUBE 1 tab BID YECENIA Administration Lanolin 1 applic 11/12/19 16:43 11/12/19 16:49 Lanolin Oint TOPICAL 1 box PRN PRN Administration DRYNESS Methylprednisolone Sodium Succinate 60 mg 11/12/19 11:00 11/13/19 02:49 Solu-Medrol IVP 60 mg Q8H YECENIA Administration Metoprolol Tartrat e 25 mg 11/12/19 09:00 11/13/19 09:57 Lopressor PEG-TUBE 25 mg BID YECENIA Administration Morphine Sulfate 4 mg 11/12/19 01:31 Morphine IVP Q4H PRN SEVERE PAIN Non-Formulary Medi cation 5 ml 11/12/19 02:44 Lidocaine Hcl TOPICAL Q3H PRN oral discomfort Ondansetron HCl 4 mg 11/12/19 01:31 Zofran IVP Q6H PRN NAUSEA AND VOMITI NG No Known Allergies Allergy (Verified 11/11/19 21:14) Vitals/I&O/Wt Last Vital Signs Temp 98.9 F 11/13/19 08:00 Pulse 99 11/13/19 08:32 Resp 18 11/13/19 08:32 BP 111/72 11/13/19 08:00 Pulse Ox 93 11/13/19 08:32 11/12/19 11/13/19 11/13/19 22:59 06:59 14:59 Intake Total 2371.667 / 4811.667 1000 / 5811.667 Output Total 150 / 150 550 / 700 Balance 2221.667 / 4661.667 450 / 5111.667 Weight last 48 hrs Weight 108.862 kg Physical Exam Const: COMMON NORMALS: no apparent distress and oriented x3 GENERAL APPEARANCE: cooperative and comfortable NUTRITIONAL APPEARANCE: obese ORIENTATION/CONSCIOUSNESS: Yes awake HENMT: COMMON NORMALS: normocephalic, head/scalp atraumatic, hearing grossly normal bilaterally and moist oral mucous membranes HEAD & SCALP: normocephalic and atraumatic Eye: COMMON NORMALS: PERRL, EOMs intact bilaterally and conjunctivae normal CONJUNCTIVA: Yes conjunctivae normal PUPIL: Yes PERRL Neck/C-Spine: COMMON NORMALS: full ROM GENERAL: Yes tracheostomy present Resp: COMMON NORMALS: normal respiratory effort, no retractions and no use of accessory muscles EFFORT & INSPECTION: Yes able to speak in complete sentences, Yes symmetric chest movement and No tachypneic AUSCULTATION: wheezes expiratory wheezes OTHER: -coarse breath sounds in upper airway Cardio: COMMON NORMALS: regular rate, S1 normal heart sound, S2 normal heart sound and no murmurs RATE: regular rate RHYTHM: abnormal rhythm irregularly irregular HEART SOUNDS: S1 normal and S2 normal GI: COMMON NORMALS: normal to inspection, nondistended, normoactive bowel sounds, soft to palpation and non-tender INSPECTION: Yes other (PEG tube in place) PALPATION: Yes soft Extremity: COMMON NORMALS: normal to inspection, full ROM and no clubbing, cyanosis or edema; negative for no pedal edema Neuro: COMMON NORMALS: oriented x3, moves all extremities, no focal motor deficits and no sensory deficits noted Psych: COMMON NORMALS: mental status grossly normal, thought process normal, cooperative and affect normal SPEECH: Yes other (mouths his words) THOUGHT PROCESS: normal thought process Skin: COMMON NORMALS: no rashes or lesions noted, no jaundice, no petechiae and no mottling GENERAL SKIN EXAM: no rashes or lesions noted Data : 11/13/19 04:48 11/13/19 04:48 Micro: Microbiology 11/11/19 21:50 Blood Culture - Preliminary Blood NEGATIVE TO DATE 11/11/19 21:31 Blood Culture - Preliminary Blood NEGATIVE TO DATE A&P Assessment and plan (1) COPD (chronic obstructive pulmonary disease): -Acute COPD exacerbation as evidenced by wheezing, increased sputum production. 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 Charles, Dr. Banks -s/p PEG tube; continue tube feeds -s/p tracheostomy, suction, trach care as needed, unable to vocalize as no Passy-Svetlana valve, communicates by mouthing his words Status: Chronic Code(s): C32.1 - Malignant neoplasm of supraglottis (3) Hypernatremia: -acute hypernatremia; likely due to dehydration given poor oral intake and diarrhea recently -prior baseline Na wnl -on IVF, continue to monitor Na Status: Acute Code(s): E87.0 - Hyperosmolality and hypernatremia (4) Atrial fibrillation: -presented in atrial fibrillation with RVR, likely triggered by acute COPD exacerbation. 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 Time Spent in Patient Care: 16 - 35 minutes (>than 50% of time spent in counselling and/or direct pt care on unit). Coding Level of Care Code Acute Time Piece Repairer for g Fwd Exam Comprehensive Diagnoses COPD (chronic obstructive pulmonary disease) J44.1 COPD type: COPD with acute exacerbation Squamous cell carcinoma of supraglottis C32.1 Hypernatremia E87.0 Atrial fibrillation I48.11 Atrial fibrillation type: longstanding persistent
[2019-11-13] MEDS: acetaminophen 650 mg/20.3 mL UDC PO (15:11)
[2019-11-14] VITALS (13 sets, daily range): BP systolic 125–143; BP diastolic 76–91; PULSE 78–127; RESP 16–22; TEMP 36.4–36.8; O2SAT 90–104
[2019-11-14] MEDS: ipratropium 0.5 mg/2.5 mL Neb INHALATION ×4 (02:48→20:56)
[2019-11-14] MEDS: sodium chloride 0.9% 1,000 ML 100 ML IV ×2 (05:38→18:21)
[2019-11-14 06:34] LABS: Basophils % 0.1 %; Hematocrit 42.1 % (42.0-52.0); Hemoglobin 12.4 g/dL (11.7-16.6); Lymphocytes # 0.2 10^3/uL (0.8-4.8); Lymphocytes % 1.9 %; Mean Corpuscular HGB Conc 29.5 g/dL (30.0-36.0); Mean Corpuscular Hemoglobin 31.4 pg (28.0-34.0); Mean Corpuscular Volume 106.6 fL (80-94); Mean Platelet Volume 10.5 fL (7.4-10.4); Monocytes # 0.4 10^3/uL (0.2-0.9); Monocytes % 3.4 %; Neutrophils % 94.1 %; Nucleated Red Blood Cells % 0 %; Platelet Count 299 10^3/cmm (130-400); Red Blood Count 3.95 10^6/uL (4.1-5.3); Red Cell Distribution Width 13.2 % (12.1-15.1); White Blood Count 12.8 10^3/uL (4.0-10.0)
[2019-11-14 06:47] LABS: Anion Gap 14.5 (5-19); Blood Urea Nitrogen 51 mg/dL (8-23); Calcium 9.6 mg/dL (8.5-10.5); Carbon Dioxide 30 mmol/L (22-29); Chloride 112 mmol/L (98-107); Creatinine Clr Calc Pharmacy 73.9373; Glomerular Filtration Rate 60.2 mL/min (90-130); Glucose 176 mg/dL (65-115); Osmolality Calculated 317 mOsm/kg (285-295); Potassium 4.5 mmol/L (3.5-5.1); Sodium 152 mmol/L (136-145)
[2019-11-14] MEDS: apixaban 5 mg Tablet PEG-TUBE ×2 (08:25→18:21)
[2019-11-14] MEDS: lactobacillus 1 Tablet 1 TAB PEG-TUBE ×2 (08:25→18:21)
[2019-11-14] MEDS: doxycycline 100 mg Tablet PEG-TUBE ×2 (08:25→18:21)
[2019-11-14] MEDS: atorvastatin 40 mg Tablet 20 MG PT (08:25)
[2019-11-14] MEDS: metoprolol tartrate 25 mg Tablet PEG-TUBE ×2 (08:26→18:21)
[2019-11-14] MEDS: famotidine 20 mg Tablet PEG-TUBE ×2 (08:26→18:21)
[2019-11-14] MEDS: budesonide 0.5 mg/2 mL Neb INHALATION ×2 (08:29→20:56)
--- NOTE | 2019-11-14 10:18 | PC.NURSE ---
Patient called at this time and given the number to the [facility] at the patient's request. The number is [phone].
--- NOTE | 2019-11-14 15:27 | PC.RESP ---
Patient given information on Pulmonary Rehab
--- NOTE | 2019-11-14 17:22 | PM.PN ---
Subjective Subjective: Interval history: Patient reports feeling better today. He is shortness of breath is improving. He denies chest pain or abdominal pain. He tolerates tube feeds well. He reports that now his tracheostomy discharge is not much different from baseline. His last bowel movement was 2 days ago and patient now reports some mild diffuse abdominal discomfort and is asking for laxatives. Vitals/I&O/Wt Last Vital Signs Temp 98.1 F 11/14/19 15:33 Pulse 127 H 11/14/19 15:33 Resp 16 11/14/19 15:33 BP 129/76 11/14/19 15:33 Pulse Ox 90 11/14/19 15:33 11/14/19 11/14/19 11/14/19 06:59 14:59 22:59 Intake Total 1515.667 / 3743.667 1584 / 1584 Output Total 200 / 200 Balance 1515.667 / 3093.667 1384 / 1384 Physical Exam Const: COMMON NORMALS: no apparent distress and oriented x3 Resp: COMMON NORMALS: normal respiratory effort and clear to auscultation bilaterally AUSCULTATION: clear to auscultation bilaterally OTHER: Tracheostomy with minimal discharge noted. PEG tube insertion site without evidence of infection. Cardio: COMMON NORMALS: regular rate, regular rhythm and S2 normal heart sound RATE: regular rate RHYTHM: regular rhythm HEART SOUNDS: S2 normal OTHER: No lower extremity edema GI: COMMON NORMALS: normal to inspection, nondistended, normoactive bowel sounds, soft to palpation and non-tender PALPATION: Yes soft Neuro: COMMON NORMALS: oriented x3 and no focal motor deficits Data : 11/14/19 06:16 11/14/19 06:16 A&P Assessment and plan (1) COPD (chronic obstructive pulmonary disease): -Acute COPD exacerbation as evidenced by wheezing, increased sputum production. 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 Charles, Dr. Banks -s/p PEG tube; continue tube feeds -s/p tracheostomy, suction, trach care as needed, unable to vocalize as no Passy-Svetlana valve, communicates by mouthing his words Status: Chronic (3) Hypernatremia: -acute hypernatremia; likely due to dehydration given poor oral intake and diarrhea recently -prior baseline Na wnl -on IVF, continue to monitor Na Status: Acute (4) Atrial fibrillation: -presented in atrial fibrillation with RVR, likely triggered by acute COPD exacerbation. 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 Present on admission -NPO, tube feeds -GI ppx with Famotidine -DVT ppx not needed as on Eliquis PLAN: Senna twice daily as needed. Continue current monitoring and treatment and if continues to improve we will likely be able to dismiss him home tomorrow. Reports that doxycycline appears to be working well as he is tracheostomy secretions improving. Decrease Solu-Medrol to 30 mg twice daily as it likely contributes to elevated white blood cell count. Encouraged oral intake. Patient ambulates in the room without significant problems. -Dispo: home -Code status: FULL code Attestations Medical Necessity Statement*: Patient with tracheitis and COPD exacerbation requires close inpatient monitoring and treatment will deemed safe for discharge. Coding Level of Care Code Acute Director Of Mobile Marketing for [facility] Fwd Exam Detailed Diagnoses COPD (chronic obstructive pulmonary disease) J44.1 COPD type: COPD with acute exacerbation Squamous cell carcinoma of supraglottis C32.1 Hypernatremia E87.0 Atrial fibrillation I48.11 Atrial fibrillation type: longstanding persistent
[2019-11-15] VITALS (10 sets, daily range): BP systolic 118–145; BP diastolic 78–93; PULSE 87–111; RESP 18–22; TEMP 36.5–36.9; O2SAT 92–94
[2019-11-15] MEDS: sodium chloride 0.9% 1,000 ML 100 ML IV (03:21)
[2019-11-15] MEDS: ipratropium 0.5 mg/2.5 mL Neb INHALATION ×3 (04:13→14:26)
[2019-11-15 05:02] LABS: Basophils % 0.1 %; Hematocrit 42.7 % (42.0-52.0); Hemoglobin 12.8 g/dL (11.7-16.6); Lymphocytes # 0.3 10^3/uL (0.8-4.8); Lymphocytes % 2.7 %; Mean Corpuscular Hemoglobin 31.9 pg (28.0-34.0); Mean Corpuscular Volume 106.5 fL (80-94); Mean Platelet Volume 10.3 fL (7.4-10.4); Monocytes # 0.5 10^3/uL (0.2-0.9); Monocytes % 5.3 %; Neutrophils # 8.8 10^3/uL (1.8-7.7); Nucleated Red Blood Cells % 0 %; Platelet Count 260 10^3/cmm (130-400); Red Blood Count 4.01 10^6/uL (4.1-5.3); White Blood Count 9.6 10^3/uL (4.0-10.0)
[2019-11-15 05:17] LABS: Alanine Aminotransferase 360 U/L (0-41); Albumin Level 3.1 g/dL (3.5-5.2); Alkaline Phosphatase 111 IU/L (40-130); Anion Gap 13.1 (5-19); Aspartate Amino Transferase 188 U/L (0-40); Blood Urea Nitrogen 40 mg/dL (8-23); Calcium 9.4 mg/dL (8.5-10.5); Carbon Dioxide 30 mmol/L (22-29); Chloride 114 mmol/L (98-107); Globulin 2.8 g/dL (1.3-4.6); Glomerular Filtration Rate 66.6 mL/min (90-130); Glucose 145 mg/dL (65-115); Osmolality Calculated 314 mOsm/kg (285-295); Potassium 5.1 mmol/L (3.5-5.1); Sodium 152 mmol/L (136-145); Total Bilirubin 0.3 mg/dL (0.15-1.2); Total Protein 5.9 g/dL (6.6-8.7)
[2019-11-15] MEDS: famotidine 20 mg Tablet PEG-TUBE (08:48)
[2019-11-15] MEDS: atorvastatin 40 mg Tablet 20 MG PT (08:48)
[2019-11-15] MEDS: metoprolol tartrate 25 mg Tablet PEG-TUBE (08:48)
[2019-11-15] MEDS: doxycycline 100 mg Tablet PEG-TUBE (08:48)
[2019-11-15] MEDS: apixaban 5 mg Tablet PEG-TUBE (08:48)
[2019-11-15] MEDS: lactobacillus 1 Tablet 1 TAB PEG-TUBE (08:48)
[2019-11-15] MEDS: budesonide 0.5 mg/2 mL Neb INHALATION (08:49)
[2019-11-15] MEDS: metoprolol tartrate 25 mg Tablet 50 MG PEG-TUBE (08:59)
--- NOTE | 2019-11-15 09:33 | PC.NURSE ---
Given patient 2 chocolate ensures via feeding tube and flushed with 120mL of water. Patient tolerated very well and had not adverse reactions.
--- NOTE | 2019-11-15 11:39 | PC.SOCIAL ---
IMM Update Pg 2 of IMM given and explained to patient. Copy provided to patient.
--- NOTE | 2019-11-15 11:44 | P.DS_ITS ---
Discharge Providers Date of Admission: 11/12/19 04:00 Date of Discharge: November 15, 2019 Attending Provider at Admission: Sondra Clarke MD Attending Provider at Discharge: Brian Adkins MD Diagnoses at Discharge Discharge Diagnosis (1) COPD (chronic obstructive pulmonary disease): Status: Acute Qualifiers: COPD type: COPD with acute exacerbation Qualified Code(s): J44.1 - Chronic obstructive pulmonary disease with (acute) exacerbation (2) Squamous cell carcinoma of supraglottis: Status: Chronic (3) Hypernatremia: Status: Acute (4) Atrial fibrillation: Status: Chronic Qualifiers: Atrial fibrillation type: longstanding persistent Qualified Code(s): I48.11 - Longstanding persistent atrial fibrillation (5) Acute tracheitis: Status: Acute Reason for Visit Reason for Visit: Reason For Visit: sob Hospital Course Discharge Summary: Patient with recent diagnosis of squamous cell carcinoma of the supraglottis and just completed recently chemoradiation treatment presented with shortness of breath and cough. He was diagnosed with acute COPD exacerbation and acute tracheitis. He was in atrial fibrillation with rapid ventricular response. He just recently was treated with Augmentin but did not improve. He was started here on doxycycline and showed gradual improvement and this morning reports feeling much better and wants to go home. He continues to have some tracheal discharge which was sent for culture and Gram stain. Since patient responded well to doxycycline we will continue that for 1 more week. Patient is supposed to follow-up with Dr. Charles and have lab work performed this Thursday. He has labs performed every 2 weeks. I have discussed with patient's Ledy over the phone. His primary care physician is at the [place] facility and I have requested the patient to be seen by primary care physician within next 4 to 7 days. I will request outpatient follow-up with remote sensing advisor, Dr. Taveras. Patient does not use oxygen and saturates 93% on room air this morning. Ledy reports that patient's tube feeds were increased from 6 cartons to 7 and he continues to lose weight. I have requested dietitian to see patient for recommendation of tube feeds as well as free water to improve hypernatremia. I will discontinue spironolactone at this point and patient will need to have lab work performed this Thursday to make sure his potassium and kidney function within normal range. I will increase metoprolol to 75 mg twice daily and change it from long-acting to short-acting. I have discussed with the [place] to decrease it to 50 mg twice daily should his heart rate dropped down to 60 and further decreased to 25 twice daily if it drops below 50. Ledy requested if we can access and flashes Port-A-Cath to safe her a trip in 2 days and I have discussed with patient's RN confounder and this will be performed. We will flush with saline and infuse small amount of heparin. Patient is well aware of trach care and once his tracheitis is treated we may consider placement of speaking valve. This morning patient denies any shortness of breath or chest pain. Denies any abdominal pain. Had normal formed bowel movement earlier and reports the diarrhea completely resolved. He is eager to go home. Physical Exam Const: COMMON NORMALS: no apparent distress and oriented x3 Resp: COMMON NORMALS: normal respiratory effort OTHER: Minimal coarse sounds throughout which are upper airway transmitted sounds. Cardio: RHYTHM: abnormal rhythm irregularly irregular OTHER: No lower extremity edema GI: COMMON NORMALS: normal to inspection, nondistended, normoactive bowel sounds, soft to palpation and non-tender PALPATION: Yes soft Neuro: COMMON NORMALS: oriented x3 and no focal motor deficits Discharge Data Data Completed and Pending: Completed Studies During Hospitalization Category Date Time Status XR chest 1V ashly ble [id number] Stat Exams 11/11/19 21:11 Completed Pending at discharge Category Date Time Status Blood Culture Sta t Lab 11/11/19 21:31 Results Complete Blood Co unt w/Auto AM LABS Lab 11/16/19 04:00 Ordered Complete Blood Co unt w/Auto AM LABS Lab 11/17/19 04:00 Ordered Comprehensive Met abolic Panel AM LA BS Lab 11/16/19 04:00 Ordered Comprehensive Met abolic Panel AM LA BS Lab 11/17/19 04:00 Ordered Sputum Culture an d Gram Stain [place] ne Lab 11/15/19 11:07 Uncollected Labs from last 24 hours 11/15/19 11/15/19 04:41 04:41 WBC 9.6 RBC 4.01 L Hgb 12.8 Hct 42.7 MCV 106.5 H MCH 31.9 MCHC 30.0 RDW 13.0 Plt Count 260 MPV 10.3 Neut % (Auto) 91.0 Lymph % (Auto) 2.7 [place] % (Auto) 5.3 Eos % (Auto) 0.0 Baso % (Auto) 0.1 Neut # (Auto) 8.8 H Lymph # (Auto) 0.3 L [place] # (Auto) 0.5 Eos # (Auto) 0.0 Baso # (Auto) 0.0 Nucleated RBC % (a uto) 0 Nucleated RBCs # 0.0 Sodium 152 H Potassium 5.1 Chloride 114 H Carbon Dioxide 30 H Anion Gap 13.1 BUN 40 H Creatinine 1.1 GFR Calculation 66.6 L Glucose 145 H Calculated Osmolal ity 314 H Calcium 9.4 Total Bilirubin 0.3 AST 188 H ALT 360 H Alkaline Phosphata se 111 Total Protein 5.9 L Albumin 3.1 L Globulin 2.8 Vitals: Last Vital Signs Temp 97.7 F 11/15/19 11:34 Pulse 87 11/15/19 11:34 Resp 22 H 11/15/19 11:34 BP 121/78 11/15/19 11:34 Pulse Ox 93 11/15/19 11:34 Discharge Plan Discharge Patient Disposition: Home, Self-Care Condition: Stable Prescriptions: New Lactobacillus acidoph-L.bulgar [Floranex] 1 million cell Tablet 1 tab peg-tube BID Qty: 14 RF: 0 doxycycline monohydrate 100 mg Tablet 100 mg peg-tube BID Qty: 14 RF: 0 sennosides-docusate sodium 8.6-50 mg Tablet 1 tab PO BID PRN (Reason: Constipation) Qty: 30 RF: 0 metoprolol tartrate 25 mg Tablet 75 mg peg-tube BID Qty: 120 RF: 0 acetaminophen 650 mg/20.3 mL Solution 650 mg PO Q4H PRN (Reason: Mild Pain Or Increase Temp) Qty: 300 RF: 0 Continued lidocaine HCl 2 % Solution 5 ml topical Q3H RF: 0 morphine 10 mg/5 mL Solution 500 mg PO BID RF: 0 albuterol sulfate 0.63 mg/3 mL Solution For Nebulization RF: 0 Symbicort 80-4.5 mcg/actuation Hfa Aerosol Inhaler INHALATION RF: 0 apixaban 5 mg Tablet 5 mg PO BID RF: 0 pravastatin 40 mg Tablet 40 mg PO DAILY RF: 0 ranitidine HCl 150 mg Tablet 150 mg PO DAILY RF: 0 Discontinued metoprolol succinate 25 mg Capsule,Sprinkle,Er 24hr BID RF: 0 spironolactone 50 mg Tablet 50 mg PO DAILY RF: 0 Discharge Orders: Discharge Order (Routine); Ordered 11/15/19 Ordered By: Brian Adkins Referrals: Sheyla Taveras MD [Physician] - 1 week Discharge Diet: As Directed Discharge Activity: Increase activity as tolerated Activity Restrictions/Additional Instructions: Please call your doctor or present to emergency department if your condition worsens or you develop diarrhea, lightheadedness, fatigue or see blood in your stool or black stool. Please avoid any sun exposure while taking doxycycline. Please use Free water with your feeds as we have discussed. Please keep blood pressure and heart rate log 3 times daily to present to your primary care physician next visit for medication adjustment. Should your heart rate decreases below 60 please change metoprolol to 50 mg twice daily and should it drop below 50 change to 25 mg twice daily. Please discuss with your doctor or Dr. Charles to have repeat kidney function test along with CBC during next lab work. Discharge Attestations Time Spent in Discharge Care*: greater than 30 min Quality Metrics Clinical Quality Measures During this hospital stay, did patient experience: None Coding Level of Care Code Acute Cranberry Grower for [facility] Fwd Exam Detailed Diagnoses COPD (chronic obstructive pulmonary disease) J44.1 COPD type: COPD with acute exacerbation Squamous cell carcinoma of supraglottis C32.1 Hypernatremia E87.0 Atrial fibrillation I48.11 Atrial fibrillation type: longstanding persistent Acute tracheitis J04.10
--- NOTE | 2019-11-15 12:40 | PC.NUTR ---
NUTR TF RECOMMENDATIONS: Pulmocare at continuous rate with goal of 65 ml/hr providing 2340 kcal (97%), 98 g PRO (96%), and 1225 ml fluid (51%)(%NEEDS). Suggest starting TF at 25 ml/hr and increase by 10 ml Q6H as tolerated until goal rate is met. Suggest H2O flushes of 180 ml Q4H to approach fluid needs or per physician. BOLUS: Total of 6-7 cans Pulmocare daily with 3/4 cup H2O flushes Q4H or 1.5 cup after each feeding if feeding 3x daily.
--- NOTE | 2019-11-15 14:56 | PC.SOCIAL ---
clarified med with Dr Adkins and can change Monohydrate on Doxycycline to Hyclate Tablets
--- NOTE | 2019-11-15 18:13 | PC.NURSE ---
educated patient on recommendations on tube feeding schedule. As well as educated [facility] call and make an appointment within 3-5 days due to recent hospital stay. Went over discharge instructions with patient and discontinued IV. Wheeled patient out via wheelchair to private vehicle.
--- NOTE | 2019-11-16 12:34 | PC.SOCIAL ---
Confirmed PCP to be Ricki Miller out of [facility]. Records faxed to number provided by clinic after verifying patient does go to primary care at this location. Also noted that Cloth Mercerizer Back Tender recommendations included for Bolus vs Cont feeding.
--- NOTE | 2019-11-18 08:49 | PC.SOCIAL ---
Dr Adkins discussed results of sputum culture with this nurse. Was sent on Doxycycline. Call placed to patient and she indicates he is not better but now worse. Still doesn't feel well. We discussed the appt with Dr Taveras and he does not yet have approval for this specialist through his [facility] team #31. Tried to reach team yesterday but was after 4:30pm no answer. Call placed this am to [facility] for team #31 phone: [phone]. Practice Representative took my information and sent a message to [facility] to call me as soon as possible. Will try to get approval for televisit with wood veneer taper on Thursday. In addition Dr Adkins ordered Ciprofloxacin 500mg BID to be put through peg tube for 7 days. Call placed this am to to update and she would like this called to [facility] outpatient pharmacy and she will grape picker this afternoon. Talked to Jerome to relay script. She checked to verify this could be crushed and given through peg and it can be. Will await call from [facility] Team and update as I know more regarding Dr Taveras appointment.
== END 2019-11-15 18:17 | disposition home or self-care (01) | DRG 191 ==
LOC: ER 22:55 → MEDSURG 23:26
PROVIDERS: Family Medicine; Admitting Provider Hospitalist; Emergency Provider Emergency Medicine; Visit Provider Internal Medicine
DX: J44.1 Chronic obstructive pulmonary disease with (acute) exacerbation (principal); E87.0 Hyperosmolality and hypernatremia; I48.11 Longstanding persistent atrial fibrillation; N17.9 Acute kidney failure, unspecified; C32.1 Malignant neoplasm of supraglottis; J04.10 Acute tracheitis without obstruction; R79.89 Other specified abnormal findings of blood chemistry; Z79.01 Long term (current) use of anticoagulants; D75.89 Other specified diseases of blood and blood-forming organs; I12.9 Hypertensive chronic kidney disease with stage 1 through stage 4 chronic kidney disease, or unspecified chronic kidney disease; N18.2 Chronic kidney disease, stage 2 (mild); E66.9 Obesity, unspecified; G47.33 Obstructive sleep apnea (adult) (pediatric); E78.5 Hyperlipidemia, unspecified; Z93.0 Tracheostomy status; Z79.52 Long term (current) use of systemic steroids; Z79.82 Long term (current) use of aspirin; Z79.84 Long term (current) use of oral hypoglycemic drugs; Z79.811 Long term (current) use of aromatase inhibitors; Z68.33 Body mass index [BMI] 33.0-33.9, adult
CPT/HCPCS: 12345; 36415; 71045; 80048; 80053; 81001; 82570; 82607; 82746; 83605; 83735; 83880; 84145; 84300; 84443; 84484; 85025; 87040; 87070; 87077; 87186; 87205; 87635; 87804; 93005; 94640; 96375; 99284; G0378; J1956; J2920; J2930; J7030; J7614; J7626; J7644

== ENCOUNTER 2019-11-18 12:30 | Outpatient (RCR) | payer OTHER, SELFPAY ==
[2019-11-18 19:06] LABS: Basophils % 0.2 %; Eosinophils # 0.2 10^3/uL (0.0-0.8); Eosinophils % 2.4 %; Hematocrit 44.7 % (42.0-52.0); Hemoglobin 13.1 g/dL (11.7-16.6); Lymphocytes # 0.4 10^3/uL (0.8-4.8); Lymphocytes % 4.3 %; Mean Corpuscular HGB Conc 29.3 g/dL (30.0-36.0); Mean Corpuscular Hemoglobin 30.8 pg (28.0-34.0); Mean Corpuscular Volume 104.9 fL (80-94); Mean Platelet Volume 11.7 fL (7.4-10.4); Monocytes # 0.6 10^3/uL (0.2-0.9); Neutrophils # 8.5 10^3/uL (1.8-7.7); Neutrophils % 85.5 %; Nucleated Red Blood Cells % 0 %; Platelet Count 233 10^3/cmm (130-400); Red Blood Count 4.26 10^6/uL (4.1-5.3); Red Cell Distribution Width 13.4 % (12.1-15.1); White Blood Count 9.9 10^3/uL (4.0-10.0)
[2019-11-18 19:08] LABS: Alanine Aminotransferase 197 U/L (0-41); Albumin Level 3.1 g/dL (3.5-5.2); Alkaline Phosphatase 119 IU/L (40-130); Anion Gap 17.8 (5-19); Aspartate Amino Transferase 42 U/L (0-40); Blood Urea Nitrogen 42 mg/dL (8-23); Carbon Dioxide 32 mmol/L (22-29); Chloride 105 mmol/L (98-107); Globulin 3.4 g/dL (1.3-4.6); Glomerular Filtration Rate 66.6 mL/min (90-130); Glucose 119 mg/dL (65-115); Osmolality Calculated 311 mOsm/kg (285-295); Potassium 3.8 mmol/L (3.5-5.1); Sodium 151 mmol/L (136-145); Total Bilirubin 0.3 mg/dL (0.15-1.2); Total Protein 6.5 g/dL (6.6-8.7)
== END 2019-11-18 23:59 | disposition home or self-care (01) ==
LOC: ONCMED 12:30
PROVIDERS: Visit Provider Internal Medicine Hematology & Oncology
DX: C32.1 Malignant neoplasm of supraglottis (principal)
CPT/HCPCS: 80053; 85025

== ENCOUNTER 2019-11-19 15:32 | Inpatient (IN) | payer OTHER, SELFPAY ==
[2019-11-19] VITALS (19 sets, daily range): BP systolic 75–112; BP diastolic 44–75; PULSE 74–92; RESP 12–22; TEMP 36.8–37.1; O2SAT 87–97; BMI 32.1
--- NOTE | 2019-11-19 15:46 | XRR_ITS ---
PROCEDURE INFORMATION: Exam: XR Chest, 1 View Exam date and time: 11/19/2019 3:48 PM Age: 69 years old Clinical indication: Shortness of breath; Prior surgery; Surgery date: 6+ months; Surgery type: Port, trach, peg tube; Patient HX: C/O SOB TECHNIQUE: Imaging protocol: XR of the chest Views: 1 view. COMPARISON: CR (CHEST, ) 11/11/2019 9:12 PM FINDINGS: Tubes, catheters and devices: Central venous catheter tip projects over the superior vena cava. Tracheostomy, unchanged from the prior study. Lungs: Unremarkable. No consolidation. Pleural space: Unremarkable. No pleural effusion. No pneumothorax. Heart/Mediastinum: Rectangular metallic densities overlie the right heart border. Vasculature: There is calcified plaque in the aortic knob which is somewhat prominent, unchanged from the prior exam. Bones/joints: Unremarkable. XR/XR chest 1V portable [id number] IMPRESSION: No evidence for acute cardiopulmonary disease.
--- NOTE | 2019-11-19 15:47 | W.ED.SOB ---
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 Patient discharged a week ago after tracheitis and COPD exacerbation. Patient states he has had a headache that is chronic in nature from last year. He states he has had mild shortness of breath. Patient's oxygen saturation here is 98% on room air. Patient denies any cough or fever. MD elicited complaint: shortness of breath Pertinent past history: COPD Onset (ago): day(s) Associated symptoms: Deny abdominal pain, chest pain, fever(s), nausea or vomiting Review of Systems Const: Denies: fever, chills, body aches or change in appetite Eyes: Denies: blurry vision or eye discomfort ENMT: Denies: throat pain or dental pain Card: Denies: chest pain Resp: Reports: shortness of breath GI: Denies: abdominal pain, nausea, vomiting or diarrhea : Denies: painful urination Musc: Denies: neck pain or back pain Skin/Breast: Denies: rash Neuro: Reports: headache Psych: Denies: depression Nilson/Lymph: Denies: easy bruising All/Imm: Denies: hives PFSH ED PFSH: Medical History Atrial fibrillation CKD (chronic kidney disease) 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 Colon cancer adjuvant chemo/FOLFOX and resection in past COPD (chronic obstructive pulmonary disease) Hyperlipidemia Hypertension Neuropathy post chemotherapy for colon cancer Obstructive sleep apnea Has not used CPAP since he got tracheostomy Squamous cell carcinoma of supraglottis Surgical History History of colon resection History of tonsillectomy History of ventral hernia repair mesh Port-A-Cath in place Ja 06/[address] Uses feeding tube Family History Mother Cancer breast Dementia Hypertension Diabetes Brother Diabetes Sister Diabetes Social History Smoking and tobacco status: former smoker Alcohol intake: never Marital status: Physical Exam Const: COMMON NORMALS: no apparent distress, oriented x3 and healthy appearing HENMT: COMMON NORMALS: normocephalic and head/scalp atraumatic HEAD & SCALP: normocephalic and atraumatic Eye: COMMON NORMALS: PERRL and EOMs intact bilaterally PUPIL: Yes PERRL Neck/C-Spine: COMMON NORMALS: full ROM and supple Chest: COMMONS NORMALS: inspection of chest normal and palpation of chest normal Resp: COMMON NORMALS: normal respiratory effort, no retractions and no use of accessory muscles AUSCULTATION: wheezes (mild) Cardio: COMMON NORMALS: regular rate, regular rhythm and no murmurs RATE: regular rate RHYTHM: regular rhythm GI: COMMON NORMALS: normal to inspection, nondistended, normoactive bowel sounds, soft to palpation, non-tender and no masses PALPATION: Yes soft Extremity: COMMON NORMALS: normal to inspection and full ROM Neuro: COMMON NORMALS: oriented x3, moves all extremities and no focal motor deficits Psych: COMMON NORMALS: mental status grossly normal, thought process normal and cooperative THOUGHT PROCESS: normal thought process Skin: COMMON NORMALS: no rashes or lesions noted and no wounds GENERAL SKIN EXAM: no rashes or lesions noted Course Vital Signs: Vital signs: Vital Signs Temperature 98.8 F 11/19/19 15:40 Pulse Rate 79 11/19/19 18:39 Respiratory Rate 18 11/19/19 18:39 Blood Pressure 82/44 11/19/19 18:39 Pulse Oximetry 97 11/19/19 18:39 MDM - SOB/Dyspnea MDM Narrative: Medical decision making narrative: Patient presents with dyspnea that is chronic in nature. Has increased trachea secretions. Patient has no signs of infection white count is normal. Patient has continued to be hypotensive here I believe is likely due to his increase in metoprolol from last week. Patient has no signs of sepsis. I spoke to hospitalist and will admit to ICU and hold his metoprolol. Lab Data: Labs: Lab Results 11/19/19 11/19/19 11/19/19 Range/Units 15:57 15:57 16:20 WBC 8.8 (4.0-10.0) 10^3/ uL RBC 4.24 (4.1-5.3) 10^6/u L Hgb 13.2 (11.7-16.6) g/dL Hct 43.9 (42.0-52.0) % MCV 103.5 H (80-94) fL MCH 31.1 (28.0-34.0) pg MCHC 30.1 (30.0-36.0) g/dL RDW 13.4 (12.1-15.1) % Plt Count 220 (130-400) 10^3/c mm MPV 11.7 H (7.4-10.4) fL Neut % (Auto) 84.7 % Lymph % (Auto) 4.2 % [place] % (Auto) 8.0 % Eos % (Auto) 2.0 % Baso % (Auto) 0.1 % Neut # (Auto) 7.5 (1.8-7.7) 10^3/u L Lymph # (Auto) 0.4 L (0.8-4.8) 10^3/u L [place] # (Auto) 0.7 (0.2-0.9) 10^3/u L Eos # (Auto) 0.2 (0.0-0.8) 10^3/u L Baso # (Auto) 0.0 (0.0-0.1) 10^3/u L Nucleated RBC % (a uto) 0 % Nucleated RBCs # 0.0 /100WBC Sodium 150 H (136-145) mmol/L Potassium 4.6 (3.5-5.1) mmol/L Chloride 107 (98-107) mmol/L Carbon Dioxide 32 H (22-29) mmol/L Anion Gap 15.6 (5-19) BUN 37 H (8-23) mg/dL Creatinine 1.1 (0.7-1.2) mg/dL GFR Calculation 66.6 L (90-130) mL/min Glucose 92 (65-115) mg/dL Calculated Osmolal ity 307 H (285-295) mOsm/k g Lactic Acid (Sepsi s) 1.2 (0.5-2.2) mmol/L Calcium 8.9 (8.5-10.5) mg/dL Urine Color (Yellow) Urine Appearance (CLEAR) Urine pH (5-7) Ur Specific Gravit y (1.005-1.030) Urine Protein (Negative) Urine Glucose (UA) (Normal) Urine Ketones (Negative) Urine Blood (Negative) Urine Nitrate (Negative) Urine Bilirubin (NEGATIVE) Urine Urobilinogen (Negative) mg/dL Ur Leukocyte Brandy ase (Negative) 11/19/19 Range/Units 16:48 WBC (4.0-10.0) 10^3/ uL RBC (4.1-5.3) 10^6/u L Hgb (11.7-16.6) g/dL Hct (42.0-52.0) % MCV (80-94) fL MCH (28.0-34.0) pg MCHC (30.0-36.0) g/dL RDW (12.1-15.1) % Plt Count (130-400) 10^3/c mm MPV (7.4-10.4) fL Neut % (Auto) % Lymph % (Auto) % [place] % (Auto) % Eos % (Auto) % Baso % (Auto) % Neut # (Auto) (1.8-7.7) 10^3/u L Lymph # (Auto) (0.8-4.8) 10^3/u L [place] # (Auto) (0.2-0.9) 10^3/u L Eos # (Auto) (0.0-0.8) 10^3/u L Baso # (Auto) (0.0-0.1) 10^3/u L Nucleated RBC % (a uto) % Nucleated RBCs # /100WBC Sodium (136-145) mmol/L Potassium (3.5-5.1) mmol/L Chloride (98-107) mmol/L Carbon Dioxide (22-29) mmol/L Anion Gap (5-19) BUN (8-23) mg/dL Creatinine (0.7-1.2) mg/dL GFR Calculation (90-130) mL/min Glucose (65-115) mg/dL Calculated Osmolal ity (285-295) mOsm/k g Lactic Acid (Sepsi s) (0.5-2.2) mmol/L Calcium (8.5-10.5) mg/dL Urine Color Yellow (Yellow) Urine Appearance Clear (CLEAR) Urine pH 7.0 (5-7) Ur Specific Gravit y 1.005 (1.005-1.030) Urine Protein Neg (Negative) Urine Glucose (UA) Norm (Normal) Urine Ketones Negative (Negative) Urine Blood Neg (Negative) Urine Nitrate Negative (Negative) Urine Bilirubin Neg (NEGATIVE) Urine Urobilinogen Norm (Negative) mg/dL Ur Leukocyte Brandy ase Negative (Negative) Imaging Data^: CXR: Attestation: I personally reviewed and interpreted this imaging study as follows: My impression: no acute abnormalities EKG Data^: EKG 1: Attestation: I personally reviewed and interpreted this EKG as follows: EKG Interpretation Date: 11/19/19 EKG interpretation time: 18:59 Interpretation: afib hr [address] or t wave abnormalities Discharge Plan Discharge Patient Disposition: Admitted As Inpatient Admit Provider: Edwige Joy Clinical Impression: COPD (chronic obstructive pulmonary disease), Tracheostomy in place, Hypotension Condition: Stable Interventions: ED Discharge Assessment Last Done: 11/19/19 18:39 Discharge Date/Time: 11/19/19 18:57 Coding Level of Care Code ED Manager Special Events for Chg Fwd Exam Comprehensive
[2019-11-19] MEDS: promethazine 25 mg/mL SDV 1 mL IM (15:50)
[2019-11-19] MEDS: ketorolac 30 mg/mL INJ 10 MG IVP (15:50)
[2019-11-19 16:04] LABS: Basophils % 0.1 %; Eosinophils # 0.2 10^3/uL (0.0-0.8); Hematocrit 43.9 % (42.0-52.0); Hemoglobin 13.2 g/dL (11.7-16.6); Lymphocytes # 0.4 10^3/uL (0.8-4.8); Lymphocytes % 4.2 %; Mean Corpuscular HGB Conc 30.1 g/dL (30.0-36.0); Mean Corpuscular Hemoglobin 31.1 pg (28.0-34.0); Mean Corpuscular Volume 103.5 fL (80-94); Mean Platelet Volume 11.7 fL (7.4-10.4); Monocytes # 0.7 10^3/uL (0.2-0.9); Neutrophils # 7.5 10^3/uL (1.8-7.7); Neutrophils % 84.7 %; Nucleated Red Blood Cells % 0 %; Platelet Count 220 10^3/cmm (130-400); Red Blood Count 4.24 10^6/uL (4.1-5.3); Red Cell Distribution Width 13.4 % (12.1-15.1); White Blood Count 8.8 10^3/uL (4.0-10.0)
[2019-11-19] MEDS: ipratropium-albuterol 3 mL Neb INHALATION (16:11)
[2019-11-19] MEDS: sodium chloride 0.9% 1,000 ML 999 ML IV (16:17)
[2019-11-19 16:42] LABS: Lactic Acid level (Lactate) 1.2 mmol/L (0.5-2.2)
[2019-11-19 16:46] LABS: Anion Gap 15.6 (5-19); Blood Urea Nitrogen 37 mg/dL (8-23); Calcium 8.9 mg/dL (8.5-10.5); Carbon Dioxide 32 mmol/L (22-29); Chloride 107 mmol/L (98-107); Glomerular Filtration Rate 66.6 mL/min (90-130); Glucose 92 mg/dL (65-115); Osmolality Calculated 307 mOsm/kg (285-295); Potassium 4.6 mmol/L (3.5-5.1); Sodium 150 mmol/L (136-145)
[2019-11-19 17:02] LABS: Add Urine Microscopic? NO
[2019-11-19 17:10] LABS: Bilirubin Urine Neg (NEGATIVE); Blood Urine Neg (Negative); Glucose Urine UA Norm (Normal); Ketones Urine Negative (Negative); Leukocyte Esterase Urine Negative (Negative); Nitrate Urine Negative (Negative); Protein Urine Neg (Negative); Specific Gravity, Urine 1.005 (1.005-1.030); Urine Appearance Clear (CLEAR); Urine Color Yellow (Yellow); Urobilinogen Urine Norm (Negative)
[2019-11-19] MEDS: sodium chloride 0.9% 500 ML 999 ML IV (18:08)
--- NOTE | 2019-11-19 18:32 | ECG_ITS ---
Measurements Intervals [place] Rate: 80 P: IN: 0 QRS: -85 QRSD: 138 T: -16 QT: 412 QTc: 477 ATRIAL FIBRILLATION WITH ABERRANT CONDUCTION OR VENTRICULAR PREMATURE COMPLEXES RIGHT BUNDLE BRANCH BLOCK [120+ ms QRS DURATION, UPRIGHT V1, 40+ ms S IN I I/aVL/V4/V5/V6] LEFT ANTERIOR FASCICULAR BLOCK [QRS AXIS <= -45, QR IN I, RS IN II] Compared to ECG 11/12/2019 03:04:35 Left anterior fascicular block now present Left-axis deviation no longer present Electronically Signed On 11-19-2019 20:22:41 CDT by Dinah Hutson M.D. [email or web address]
--- NOTE | 2019-11-19 19:14 | PM.HP ---
Providers/Chief Complaint Admitting Physician: Edwige Joy MD Chief Complaint: SOB,HEADACHE History of Present Illness Edgar Thomas is a 69 year old male who carries diagnosis of invasive supraglottic cancer currently undergoing chemoradiation therapy, status post trach collar placement, colon cancer status post resection, FSGS chronic kidney disease, came from home with chief concerns of hypotension. Patient was discharged 4 days ago after being managed for tracheitis with doxycycline, Spironolactone was discontinued because of hypernatremia and beta-rose dose was increased to 75 mg twice a day because of A. fib RVR, he is also on torsemide. Patient is denying fever, dysuria, abdominal pain, he is endorsing diarrhea which is on and off, he is on tube feeds, previously his bowel movements were semisolid, no nausea or vomiting. He is still having yellowish discharge from his trach collar. He has been getting diuretics. He is not sure about free water flushes amount that he gets at home. He is denying chest pain, acute shortness of breath. Diagnostics in ER revealed 2 L water deficit, sodium 150, hypotension, responding well to fluid resuscitation, No source of infection was found, lactic acid negative, Antihypertensives and AV anson blocking agents were held He received 2 L of fluid in ER Review of Systems Const: Reports: body aches and fatigue; Denies: fever Eyes: Denies: change in vision ENMT: Reports: throat pain Card: Reports: swelling of feet/ankles and shortness of breath when lying down; Denies: chest pain Resp: Reports: shortness of breath GI: Reports: diarrhea; Denies: abdominal pain or nausea : Denies: flank pain, difficulty urinating or urinary frequency Musc: Denies: neck pain or back pain Skin/Breast: Denies: rash or itching Neuro: Denies: headache or numbness in extremities Psych: Reports: anxiety Endo: Denies: excessive urination Nilson/Lymph: Denies: easy bruising All/Imm: Denies: hives Medications/Allergies Home Medications Medication Instructions Recorded Confirmed Last Taken Type Mucinex Liquid 5 ml PO BID PRN 11/19/19 11/19/19 Unknown History albuterol sulfate 2 puff INHALATION QID PRN 11/19/19 11/19/19 Unknown History ciprofloxacin HCl [Cipro] 500 mg PO BID 11/19/19 11/19/1920 History lidocaine HCl [Lidocaine Viscous] See Rx Instructions .ROUTE 11/19/19 11/19/19 Unknown History .COMPLEX PRN phenol [Throat [place]] See Rx Instructions .ROUTE .COMPLEX 11/19/19 11/19/19 Unknown History spironolactone 50 mg PO DAILY 11/19/19 11/19/19 11/19/19 History torsemide 50 mg PO DAILY 11/19/19 11/19/19 Unknown History Allergies Allergy/AdvReac Type Severity Reaction Status Date / Time No Known Allergies Allergy Verified 11/19/19 15:47 PFSH Acute PFSH: Medical History Atrial fibrillation CKD (chronic kidney disease) 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 Colon cancer adjuvant chemo/FOLFOX and resection in past COPD (chronic obstructive pulmonary disease) Hyperlipidemia Hypertension Neuropathy post chemotherapy for colon cancer Obstructive sleep apnea Has not used CPAP since he got tracheostomy Squamous cell carcinoma of supraglottis Surgical History History of colon resection History of tonsillectomy History of ventral hernia repair mesh Port-A-Cath in place Ja 06/[address] Uses feeding tube Family History Mother Cancer breast Dementia Hypertension Diabetes Brother Diabetes Sister Diabetes Social History Smoking and tobacco status: former smoker Alcohol intake: never Marital status: Supplemental PFSH Information: .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 CT PET scan done on 05/14/2019 showed abnormal activity in the right supra glottic territory with extension into right true cord with SUV of 22.7 measuring up to 2.8 cm. Tiny, bilateral level IV jugulodigastric nodes are too small to characterize. Micrometastatic disease cannot be ruled out. 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 Vitals/I&O/Wt Last Vital Signs Temp 98.8 F 11/19/19 15:40 Pulse 79 11/19/19 18:39 Resp 18 11/19/19 18:39 BP 82/44 11/19/19 18:39 Pulse Ox 97 11/19/19 18:39 Weight last 48 hrs Weight 104.326 kg Physical Exam Narrative: EXAM NARRATIVE: Obese male sitting comfortable in his bed Trach collar has yellowish discharged from the outlet Patient is afebrile, current systolic blood pressure is 94mmhg Asymptomatic S1, S2 active signs of congestive heart failure with bilateral lower extremity edema Bilateral lower extremity venous stasis dermatitis Hard to assess his JVD Bilateral breath sounds with inspiratory adventitious sounds, Abdomen soft, PEG tube site shows no signs of hyperemia or cellulitis, no active drainage, abdomen has increased bowel sounds in all quadrants, nontender EOMI, PERRLA Patient able to communicate via writing on the clipboard Questions were answered to his satisfaction Data : 11/19/19 15:57 11/19/19 15:57 A&P Assessment and plan (1) Hypotension: Status: Acute (2) Hypernatremia: Status: Acute (3) Diarrhea: Status: Acute (4) Uses feeding tube: Status: Acute (5) Chronic anticoagulation: Status: Chronic (6) Lower extremity edema: Status: Acute Additional A&P Information Hypotension due to dehydration I believe hypotension is due to use of diuretic, dehydration, lack of appropriate for water flushes with tube feeding He is showing good response to fluid resuscitation current systolic blood pressure 94 mmHg diastolic pressure 60 mmHg Patient is asymptomatic He is volume overloaded clinically, his lungs are clear no signs of pulmonary edema, my suspicion for cardiogenic shock will be low No signs of sepsis I would not use glucagon at this point to reverse the effect of beta-rose, his beta-rose dose was increased on last admission Hypernatremia Free water deficit 2 L, sodium 150 He has already received 2 L in the ER, I would hold antihypertensive at the moment, hold diuretics at the moment and give very low maintenance fluid for next 10 hours and monitor his response Diarrhea: He has been given ciprofloxacin and doxycycline in the past I will check C. difficile In case C. difficile comes back negative diarrhea could be just due to consistency of tube feeds without any infectious process A. fib without RVR Current hospital monitor is showing heart rate in 90s with ectopic atrial beats Continue anticoagulation with Eliquis Hemoglobin stable Invasive squamous cell carcinoma supraglottic region currently in remission Trach collar has yellowish discharge, I would continue doxycycline at the moment No signs of sepsis FSGS chronic kidney disease no active exacerbation Patient has bilateral lower extremity pitting edema Not able to locate any echocardiogram in the past, considering history of nephrotic syndrome with FSGS this could very well be the etiology Kindly reevaluate in the morning if he would benefit from an echocardiogram, I am holding his torsemide at this point I will request records from his [place] hospital if echo was done there Patient is full code [place] E prophylaxis adequate with Eliquis use Attestations Medical Necessity Statement*: Anticipating discharge in less than 48 hours because of previous history of cancer and active hypotension I am holding antihypertensives at the moment admitting him to ICU if would require vasopressors overnight because of his multiple comorbid conditions Time Spent in Patient Care: 40 Coding Level of Care Code Acute Business Management Professor for Chg Fwd Diagnoses Hypotension I95.9 Hypernatremia E87.0 Diarrhea R19.7 Uses feeding tube Z97.8 Chronic anticoagulation Z79.01 Lower extremity edema R60.0
[2019-11-19] MEDS: dextrose 5%-lactated ringers 1,000 ML 30 ML IV (21:09)
[2019-11-19] MEDS: acetaminophen 650 mg/20.3 mL UDC PO (21:52)
[2019-11-19] MEDS: phenol oral Spray 177 mL 1 SPRAY MUCOUS MEM (21:52)
[2019-11-19 23:26] LABS: Sodium 147 mmol/L (136-145)
[2019-11-20] VITALS (17 sets, daily range): BP systolic 93–122; BP diastolic 55–85; PULSE 73–117; RESP 15–99; TEMP 36.6–37.6; O2SAT 92–98
[2019-11-20 05:37] LABS: Basophils % 0.1 %; Eosinophils # 0.3 10^3/uL (0.0-0.8); Eosinophils % 3.4 %; Hematocrit 41.8 % (42.0-52.0); Hemoglobin 12.7 g/dL (11.7-16.6); Lymphocytes # 0.5 10^3/uL (0.8-4.8); Lymphocytes % 5.7 %; Mean Corpuscular HGB Conc 30.4 g/dL (30.0-36.0); Mean Corpuscular Volume 105.3 fL (80-94); Mean Platelet Volume 10.9 fL (7.4-10.4); Monocytes # 0.6 10^3/uL (0.2-0.9); Monocytes % 6.9 %; Neutrophils # 6.9 10^3/uL (1.8-7.7); Neutrophils % 82.7 %; Nucleated Red Blood Cells % 0 %; Platelet Count 227 10^3/cmm (130-400); Red Blood Count 3.97 10^6/uL (4.1-5.3); Red Cell Distribution Width 13.6 % (12.1-15.1); White Blood Count 8.3 10^3/uL (4.0-10.0)
[2019-11-20 06:01] LABS: Anion Gap 15.1 (5-19); Blood Urea Nitrogen 36 mg/dL (8-23); Calcium 8.8 mg/dL (8.5-10.5); Carbon Dioxide 30 mmol/L (22-29); Chloride 106 mmol/L (98-107); Glomerular Filtration Rate 54.9 mL/min (90-130); Glucose 169 mg/dL (65-115); Osmolality Calculated 305 mOsm/kg (285-295); Potassium 4.1 mmol/L (3.5-5.1); Sodium 147 mmol/L (136-145)
[2019-11-20] MEDS: atorvastatin 40 mg Tablet 20 MG PO (11:13)
[2019-11-20] MEDS: apixaban 5 mg Tablet PO ×2 (11:13→17:48)
[2019-11-20] MEDS: doxycycline 100 mg Tablet PEG-TUBE ×2 (11:14→17:48)
[2019-11-20] MEDS: ciprofloxacin 500 mg Tablet PO (17:48)
[2019-11-20] MEDS: TRAMadol 50 mg Tablet PO (17:48)
--- NOTE | 2019-11-20 18:10 | PC.NURSE ---
notified Dr. ng of change in patient condition with patient having a persistent cough with blood clots expelled from his trach and a low grade temp. no new instructions given at this time
--- NOTE | 2019-11-20 19:52 | P.PN_ITS ---
Subjective Subjective: Interval history: Continues to c/o discomfort at trach site with thick secretions. Intermittently secretions are blood tinged. 02 sat maintained. BP trend improving today Medications: Reviewed: Yes Vitals/I&O/Wt Last Vital Signs Temp 99.6 F 11/20/19 15:08 Pulse 105 H 11/20/19 15:08 Resp 20 H 11/20/19 15:08 BP 97/57 11/20/19 15:08 Pulse Ox 93 11/20/19 15:08 11/20/19 11/20/19 11/20/19 06:59 14:59 22:59 Intake Total 830 / 3170 860 / 860 994 / 1854 Output Total 450 / 450 Balance 830 / 3170 410 / 410 994 / 1404 Weight last 48 hrs Weight 104.326 kg Physical Exam Narrative: EXAM NARRATIVE: GEN: Awake, alert and oriented, no acute distress, communicates by writing HEENT: trach in place, thick secretions + CVS: S1S2 N RS: CTA B/L Abd: Soft, nt/nd , bs+ 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: no focal neuro deficits Data : 11/20/19 04:43 11/20/19 04:43 A&P Assessment and plan (1) Hypotension: Status: Acute (2) Hypernatremia: Status: Acute (3) Diarrhea: Status: Acute (4) Uses feeding tube: Status: Acute (5) Chronic anticoagulation: Status: Chronic (6) Lower extremity edema: Status: Acute Additional A&P Information # Hypotension due to dehydration I believe hypotension is due to use of diuretic, dehydration, lack of appropriate for water flushes with tube feeding He is showing good response to fluid resuscitation Patient is asymptomatic Continue fluid, chanage to d51/2 NS @50cc/hr, still looks clinically dry today No signs of sepsis #Hypernatremia Free water deficit 2 L, sodium 150, continue fluids as above, improving #A. fib without RVR Current meter repairer is showing heart rate in 90s with ectopic atrial beats Continue anticoagulation with Eliquis Hemoglobin stable # Invasive squamous cell carcinoma supraglottic region currently in remission Trach collar has yellowish discharge, I would continue doxycycline at the moment No signs of sepsis Patient had f/up appt with Dr. Taveras for tracheitis and trach care, will change this to inpatient since patient will remain inpatient # FSGS chronic kidney disease no active exacerbation Patient is full code [place] E prophylaxis adequate with Eliquis use Attestations Medical Necessity Statement*: remains admitted for management of dehydration, hypernatremia and trach care Coding Level of Care Code Acute Bull Rider for Chg Fwd Diagnoses Hypotension I95.9 Hypernatremia E87.0 Diarrhea R19.7 Uses feeding tube Z97.8 Chronic anticoagulation Z79.01 Lower extremity edema R60.0
[2019-11-20] MEDS: dextrose 5%-sod chloride 0.45% 1,000 ML 50 ML IV (22:54)
[2019-11-21] VITALS (8 sets, daily range): BP systolic 112–122; BP diastolic 68–73; PULSE 99–129; RESP 18–25; TEMP 36.9–37.7; O2SAT 90–95
[2019-11-21 05:35] LABS: Eosinophils # 0.2 10^3/uL (0.0-0.8); Eosinophils % 2.5 %; Hematocrit 39.5 % (42.0-52.0); Lymphocytes # 0.5 10^3/uL (0.8-4.8); Lymphocytes % 6.6 %; Mean Corpuscular HGB Conc 30.4 g/dL (30.0-36.0); Mean Corpuscular Hemoglobin 31.4 pg (28.0-34.0); Mean Corpuscular Volume 103.4 fL (80-94); Mean Platelet Volume 10.5 fL (7.4-10.4); Monocytes # 0.6 10^3/uL (0.2-0.9); Monocytes % 8.9 %; Neutrophils # 5.5 10^3/uL (1.8-7.7); Neutrophils % 81.1 %; Nucleated Red Blood Cells % 0 %; Platelet Count 210 10^3/cmm (130-400); Red Blood Count 3.82 10^6/uL (4.1-5.3); Red Cell Distribution Width 13.5 % (12.1-15.1); White Blood Count 6.8 10^3/uL (4.0-10.0)
[2019-11-21 05:51] LABS: Alanine Aminotransferase 106 U/L (0-41); Alkaline Phosphatase 126 IU/L (40-130); Anion Gap 12.1 (5-19); Aspartate Amino Transferase 39 U/L (0-40); Blood Urea Nitrogen 24 mg/dL (8-23); Calcium 8.9 mg/dL (8.5-10.5); Carbon Dioxide 29 mmol/L (22-29); Chloride 105 mmol/L (98-107); Globulin 3.1 g/dL (1.3-4.6); Glomerular Filtration Rate 96.1 mL/min (90-130); Glucose 143 mg/dL (65-115); Osmolality Calculated 293 mOsm/kg (285-295); Potassium 4.1 mmol/L (3.5-5.1); Sodium 142 mmol/L (136-145); Total Bilirubin 0.3 mg/dL (0.15-1.2); Total Protein 6.1 g/dL (6.6-8.7)
[2019-11-21] MEDS: apixaban 5 mg Tablet PO (08:42)
[2019-11-21] MEDS: doxycycline 100 mg Tablet PEG-TUBE (08:42)
[2019-11-21] MEDS: atorvastatin 40 mg Tablet 20 MG PO (08:42)
[2019-11-21] MEDS: polyethylene glycol 3350 Pkt 17 gm PO (08:42)
[2019-11-21] MEDS: ciprofloxacin 500 mg Tablet PO (08:42)
[2019-11-21] MEDS: dilTIAZem 30 mg Tablet PO (10:45)
--- NOTE | 2019-11-21 13:19 | P.DS_ITS ---
Discharge Providers Date of Admission: 11/20/19 22:27 Date of Discharge: November 21, 2019 Attending Provider at Admission: Edwige Joy MD Attending Provider at Discharge: Edwige Joy MD Diagnoses at Discharge Discharge Diagnosis (1) Hypotension: Status: Acute (2) Hypernatremia: Status: Acute (3) Diarrhea: Status: Acute (4) Uses feeding tube: Status: Acute (5) Chronic anticoagulation: Status: Chronic Problem details: eliquis (6) Lower extremity edema: Status: Acute Reason for Visit Reason for Visit: Reason For Visit: SOB,HEADACHE Hospital Course Discharge Summary: Edgar Thomas is a 69 year old male who carries diagnosis 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 Patient was found to have hypotension secondary to dehydration, 2 L free water deficits, with a serum sodium of 150, hypernatremia secondary dehydration. Patient received IV hydration, clinically improved, remained normotensive, serum sodium on discharge was 142, patient was doing well. 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 Patient was discharged on 8 remaining days of ciprofloxacin silk, with intermediate susceptibility to Pseudomonas. There are plans to try to get patient nebulized tobramycin or aztreonam through the [place], however this is still pending on discharge. Dosing for tobramycin would potentially be 300 mg every 12 hours for 2 weeks, dosing of aztreonam would potentially be 75 mg 3 times daily for 2 weeks both nebulized. Patient was advised to follow-up with Dr. Taveras in 1 week, and furthermore Dr. Taveras agrees with previous discussed plan For his atrial fibrillation, metoprolol was held due to hypotension concerns, on discharge patient was fairly normotensive, with heart rates in the 100s to 120's. He was transitioned to Cardizem, tolerated it well, was discharged on oral Cardizem 120 twice daily with a close follow with primary care provider as outpatient. Physical Exam Const: COMMON NORMALS: no apparent distress and oriented x3 HENMT: COMMON NORMALS: normocephalic HEAD & SCALP: normocephalic Neck/C-Spine: COMMON NORMALS: no JVD Resp: COMMON NORMALS: normal respiratory effort, no retractions, no use of accessory muscles and clear to auscultation bilaterally AUSCULTATION: clear to auscultation bilaterally OTHER: Tracheostomy in place Cardio: COMMON NORMALS: no JVD, regular rate, S1 normal heart sound and S2 normal heart sound RATE: regular rate and tachycardic RHYTHM: abnormal rhythm HEART SOUNDS: S1 normal and S2 normal GI: COMMON NORMALS: normal to inspection, nondistended, normoactive bowel sounds, soft to palpation, non-tender, no hepatosplenomegaly, no masses and no bruits PALPATION: Yes soft and Yes no hepatosplenomegaly Extremity: COMMON NORMALS: normal capillary refill, no clubbing, cyanosis or edema, no calf tenderness and no pedal edema Neuro: COMMON NORMALS: oriented x3 Psych: COMMON NORMALS: mental status grossly normal Discharge Data Data Completed and Pending: Completed Studies During Hospitalization Category Date Time Status XR chest 1V ashly ble [id number] Urgent Exams 11/19/19 15:46 Completed Labs from last 24 hours 11/21/19 11/21/19 04:55 04:55 WBC 6.8 RBC 3.82 L Hgb 12.0 Hct 39.5 L MCV 103.4 H MCH 31.4 MCHC 30.4 RDW 13.5 Plt Count 210 MPV 10.5 H Neut % (Auto) 81.1 Lymph % (Auto) 6.6 [place] % (Auto) 8.9 Eos % (Auto) 2.5 Baso % (Auto) 0.0 Neut # (Auto) 5.5 Lymph # (Auto) 0.5 L [place] # (Auto) 0.6 Eos # (Auto) 0.2 Baso # (Auto) 0.0 Nucleated RBC % (a uto) 0 Nucleated RBCs # 0.0 Sodium 142 Potassium 4.1 Chloride 105 Carbon Dioxide 29 Anion Gap 12.1 BUN 24 H Creatinine 0.8 GFR Calculation 96.1 Glucose 143 H Calculated Osmolal ity 293 Calcium 8.9 Total Bilirubin 0.3 AST 39 ALT 106 H Alkaline Phosphata se 126 Total Protein 6.1 L Albumin 3.0 L Globulin 3.1 Vitals: Last Vital Signs Temp 99.9 F H 11/21/19 11:25 Pulse 111 H 11/21/19 11:25 Resp 20 H 11/21/19 11:25 BP 117/73 11/21/19 11:25 Pulse Ox 92 11/21/19 11:25 Discharge Plan Discharge Patient Disposition: Home, Self-Care Condition: Stable Prescriptions: New Cardizem CD 120 mg capsule,extended release 24hr 120 mg PO BID 30 Days Qty: 60 RF: 0 Continued Lidocaine Viscous 2 % Solution See Rx Instructions .ROUTE .COMPLEX PRN (Reason: unknown) RF: 0 albuterol sulfate 90 mcg/actuation Hfa Aerosol Inhaler 2 puff INHALATION QID PRN (Reason: Shortness Of Breath) RF: 0 spironolactone 50 mg Tablet 50 mg PO DAILY RF: 0 Throat [place] 1.4 % Aerosol,[place] See Rx Instructions .ROUTE .COMPLEX RF: 0 Mucinex Liquid 5 ml PO BID PRN (Reason: unknown) RF: 0 Cipro 500 mg Tablet 500 mg PO BID 8 Days Qty: 14 RF: 0 morphine 10 mg/5 mL Solution See Rx Instructions .ROUTE .COMPLEX RF: 0 Symbicort 80-4.5 mcg/actuation Hfa Aerosol Inhaler 2 puff INHALATION BID RF: 0 apixaban 5 mg Tablet 5 mg PO BID RF: 0 pravastatin 40 mg Tablet 40 mg PO DAILY RF: 0 ranitidine HCl 150 mg Tablet 150 mg PO DAILY RF: 0 sennosides-docusate sodium 8.6-50 mg Tablet 1 tab PO BID PRN (Reason: Constipation) Qty: 30 RF: 0 Lactobacillus acidoph-L.bulgar [Floranex] 1 million cell Tablet 1 tab peg-tube BID Qty: 14 RF: 0 acetaminophen 650 mg/20.3 mL Solution 650 mg PO Q4H PRN (Reason: Mild Pain Or Increase Temp) Qty: 300 RF: 0 Held torsemide 10 mg Tablet 50 mg PO DAILY RF: 0 Hold Instructions: Resume on 12/15/19. until seen by primary care Discontinued doxycycline monohydrate 100 mg Tablet 100 mg peg-tube BID Qty: 14 RF: 0 metoprolol tartrate 25 mg Tablet 75 mg peg-tube BID Qty: 120 RF: 0 Discharge Orders: Discharge Order (Routine); Ordered 11/21/19 Ordered By: Rolando Gee Referrals: Sheyla Taveras MD [Physician] - 11/24/19 9:30 am Discharge Diet: Cardiac Activity Restrictions/Additional Instructions: -For your atrial fibrillation, metoprolol has been discontinued due to concerns for hypotension. Instead Cardizem 120 mg twice daily has been started, monitor for lightheadedness, dizziness, monitor heart rate -If you have chest pain, palpitations, or heart rates greater than 120 please come back to the emergency room -For your Pseudomonas tracheostomy colonization, I have discharged you on ciprofloxacin for 8 remaining days -We are working with your VA benefits and your insurance to see if nebulized tobramycin 300 every 12 hours for 2 weeks or aztreonam nebulized 75 mg 3 times daily for 2 weeks can be covered -Follow-up with Dr. Taveras in 1 week -If you fevers, chills, increase secretions from your tracheostomy please come back to the emergency room -Your torsemide has been held due to hypotensive episodes, please follow-up with primary care provider in 1 week for resumption, and monitoring heart rate Discharge Attestations Time Spent in Discharge Care*: less than 30 min Quality Metrics Clinical Quality Measures During this hospital stay, did patient experience: None Coding Level of Care Code Acute Testing Lead for Paulg Fwd Diagnoses Hypotension I95.9 Hypernatremia E87.0 Diarrhea R19.7 Uses feeding tube Z97.8 Chronic anticoagulation Z79.01 Lower extremity edema R60.0
--- NOTE | 2019-11-22 11:28 | PC.SOCIAL ---
[facility] Chelsy called to get Dr Taveras information so a VA referral can be started. Pt has appt with DR Taveras on 11/23. Provided phone and fax to Chelsy so she can make contact.
--- NOTE | 2019-11-22 13:00 | PC.SOCIAL ---
called Moreno banquet server on call at the [facility] [place] [facility]31 to inquire about the nebulized medication either Tobramycin or Aztreonam. He indicates they have been talking with a few times already today and nurse may be working in this. He will have Lorie the nurse to give me a call back. My number and name left.
--- NOTE | 2019-11-22 13:38 | PC.SOCIAL ---
Lorie from [facility] called back. Dr Miller is not in today. We reviewed where this was sent yesterday regarding the nebulized medication. Lorie Will review with provider tomorrow and this nurse asked that they call with any questions or concerns.
--- NOTE | 2019-11-24 14:35 | PC.SOCIAL ---
Call received by Dr Erazo and he requested a phyical script by Dr Taveras with the nebulized medication he would prefer and the dosing etc. Call placed to Dr Taveras and he is agreeable. Provided Fax # and last four of social to add to cover sheet and asked per request of PCP that it be sent to Attn: [facility][id number]. Dr Taveras said he would be happy to help by faxing the request.
== END 2019-11-21 15:07 | disposition home or self-care (01) | DRG 315 ==
LOC: ER 16:20 → ICU 18:33 → MEDSURG 11-20 14:30
PROVIDERS: Internal Medicine; Admitting Provider Student in an Organized Health Care Education/Training Program; Emergency Provider Emergency Medicine; Visit Provider Student in an Organized Health Care Education/Training Program
DX: I95.9 Hypotension, unspecified (principal); E87.0 Hyperosmolality and hypernatremia; Z43.1 Encounter for attention to gastrostomy; R19.7 Diarrhea, unspecified; Z79.01 Long term (current) use of anticoagulants; Z79.899 Other long term (current) drug therapy; C32.1 Malignant neoplasm of supraglottis; Z85.038 Personal history of other malignant neoplasm of large intestine; Z90.49 Acquired absence of other specified parts of digestive tract; N18.9 Chronic kidney disease, unspecified; E86.0 Dehydration; I48.91 Unspecified atrial fibrillation; Z87.891 Personal history of nicotine dependence; Z93.0 Tracheostomy status
CPT/HCPCS: 12345; 36415; 36591; 71045; 80048; 80053; 81003; 83605; 84295; 85025; 93005; 94640; 94799; 96372; 96374; 96375; 99283; G0378; J1642; J1885; J2550; J7030; J7040; J7611; J7799

== ENCOUNTER 2019-11-24 04:32 | Emergency (ER) | payer OTHER, SELFPAY ==
[2019-11-24] VITALS (7 sets, daily range): BP systolic 120–152; BP diastolic 74–83; PULSE 86–110; RESP 18–24; TEMP 36.7; O2SAT 92–94; BMI 34.9
--- NOTE | 2019-11-24 04:46 | XR_ITS ---
WS: [id number] CHEST XRAY TECHNIQUE: Portable chest. CLINICAL INFORMATION: cough COMPARISON: November 19, 2019 FINDINGS: Right IJ central venous catheter tip in the SVC. Heart: Cardiomegaly. Tortuous thoracic aorta. Lungs: Chronic emphysematous changes. Shallow inspiration with bibasilar atelectasis. No focal pneumo mimi. Bones: Normal visualized bony structures. XR/XR chest 1V portable [id number] IMPRESSION: 1. Cardiomegaly with tortuous thoracic aorta. 2. Right central venous catheter with tip in the SVC. 3. Shallow inspiration with bibasilar atelectasis.
--- NOTE | 2019-11-24 04:47 | W.ED.GENADLT ---
Documented by User: Carmen Leslie 11/24/19 05:45 HPI - General Adult General: Chief complaint: Shortness of Breath/Dyspnea Stated complaint: sob Time Seen by Provider: 11/24/19 04:37 History of Present Illness: HPI narrative: Mr. Thomas is a nice 69-year-old male who comes in complaining of having thickened secretions in his trach and when he tries to put in the inner cannula he is unable to breathe. He does not describe any chest pain, fever, or deep lung problems just thickened secretions and inability to get all the secretions out of his trach. Of note the patient was discharged here 2 days ago with hypotension, hypernatremia, diarrhea, using a feeding tube and chronic anticoagulation. He states that he has been doing well since going home but because of the stick and secretions he just cannot breathe unless he takes his inner cannula of his tracheostomy out. He is not wanting any lab work or aggressive evaluation he would just like somebody from respiratory therapy to come evaluate his trach to see what is wrong. He does not relate any tracheotomy bleeding. Review of Systems General: Reports: 10 or more systems reviewed and unremarkable except in HPI and below PFSH ED PFSH: Medical History Atrial fibrillation CKD (chronic kidney disease) 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 Colon cancer adjuvant chemo/FOLFOX and resection in past COPD (chronic obstructive pulmonary disease) Hyperlipidemia Hypertension Neuropathy post chemotherapy for colon cancer Obstructive sleep apnea Has not used CPAP since he got tracheostomy Squamous cell carcinoma of supraglottis Surgical History History of colon resection History of tonsillectomy History of ventral hernia repair mesh Port-A-Cath in place Ja 06/[address] Uses feeding tube Family History Mother Cancer breast Dementia Hypertension Diabetes Brother Diabetes Sister Diabetes Social History Smoking and tobacco status: former smoker Quit status (tobacco): has quit using tobacco Year quit tobacco: 2007 - >0.5PPD x 30 Years Alcohol intake: never Lives independently: Yes Household members: spouse Marital status: Current occupational status: disabled History of recent travel: No Current gender identity: Male Physical Exam Const: COMMON NORMALS: no apparent distress, oriented x3, no limitations, healthy appearing and well nourished EXAM LIMITATIONS: no altered mental status GENERAL APPEARANCE: cooperative, well kempt and well developed ORIENTATION/CONSCIOUSNESS: Yes awake HENMT: COMMON NORMALS: normocephalic, head/scalp atraumatic, hearing grossly normal bilaterally, external ears normal, EAC's normal, external nose normal and moist oral mucous membranes HEAD & SCALP: normal to inspection, normocephalic and atraumatic FACE & SINUS: normal facial exam and face symmetric NOSE: external nose normal and nares normal EXTERNAL EAR: Yes external ears normal EXTERNAL AUDITORY CANAL: EAC's normal MOUTH: oral and palatal mucosa normal and tongue normal Eye: COMMON NORMALS: PERRL, EOMs intact bilaterally, conjunctivae normal and no scleral icterus GENERAL EYE: normal appearance of both eyes and normal light reflex CONJUNCTIVA: Yes conjunctivae normal SCLERA: sclerae normal CORNEA: Yes corneas normal PUPIL: Yes PERRL DIRECT OPHTHALMOSCOPY: Yes normal light reflex Neck/C-Spine: COMMON NORMALS: full ROM, no lymphadenopathy, supple, no meningeal signs and no JVD GENERAL: Yes normal visual inspection and Yes trachea midline CERVICAL SPINE: Yes cervical ROM normal Chest: COMMONS NORMALS: inspection of chest normal and palpation of chest normal Resp: COMMON NORMALS: normal respiratory effort, no retractions and no use of accessory muscles AUSCULTATION: rhonchi (Echoed from upper airway) Cardio: COMMON NORMALS: no JVD, regular rate, regular rhythm, S1 normal heart sound, S2 normal heart sound, no gallops, no clicks, no murmurs and no rub JUGULAR VENOUS DISTENTION: no JVD RATE: regular rate RHYTHM: regular rhythm HEART SOUNDS: S1 normal and S2 normal GI: COMMON NORMALS: soft to palpation, non-tender, no hepatosplenomegaly and no masses INSPECTION: Yes normal to inspection PALPATION: Yes soft and Yes no hepatosplenomegaly : COMMON NORMALS: Yes no CVA tenderness BLADDER/KIDNEY EXAM: Yes no CVA tenderness Back/Pelvis: COMMON NORMALS: no CVA tenderness, thoracic and lumbar spine normal to inspection, no thoracic nor lumbar tenderness and thoraco-lumbar ROM normal Extremity: COMMON NORMALS: normal to inspection, full ROM, normal capillary refill, no joint enlargement, no clubbing, cyanosis or edema and no calf tenderness Neuro: COMMON NORMALS: oriented x3, CN's II-XII intact bilaterally, moves all extremities, no focal motor deficits and no sensory deficits noted MENINGEAL SIGNS: Yes no meningeal signs Psych: COMMON NORMALS: mental status grossly normal, thought process normal, cooperative, affect normal, speech normal and activity/motor behavior normal APPEARANCE: Yes well kempt SPEECH: Yes normal speech THOUGHT PROCESS: normal thought process Skin: COMMON NORMALS: no rashes or lesions noted, skin turgor normal, no jaundice, no petechiae and no mottling GENERAL SKIN EXAM: no rashes or lesions noted and turgor normal Course Vital Signs: Vital signs: Vital Signs Temperature 98.0 F 11/24/19 04:47 Pulse Rate 99 11/24/19 09:08 Respiratory Rate 18 11/24/19 09:08 Blood Pressure 124/74 11/24/19 09:08 Pulse Oximetry 93 11/24/19 09:08 MDM - General Adult MDM Narrative: Medical decision making narrative: 0545 -care turned over to Dr. Handley at change of shift. Imaging Data^: CXR: My impression: No new acute cardiopulmonary findings compared to previous. Discharge Plan Discharge Patient Disposition: Home, Self-Care Clinical Impression: Tracheostomy in place, Squamous cell carcinoma of supraglottis Condition: Stable Prescriptions: No Action ipratropium-albuterol 0.5 mg-3 mg(2.5 mg base)/3 mL solution for nebulization 3 ml INHALATION QID Qty: 360 RF: 3 budesonide [Pulmicort] 0.5 mg/2 mL suspension for nebulization 0.25 mg INHALATION BID Qty: 120 RF: 3 torsemide 10 mg Tablet 50 mg PO DAILY RF: 0 Hold Instructions: Resume on 12/15/19. until seen by primary care Lidocaine Viscous 2 % Solution See Rx Instructions .ROUTE .COMPLEX PRN (Reason: unknown) RF: 0 albuterol sulfate 90 mcg/actuation Hfa Aerosol Inhaler 2 puff INHALATION QID PRN (Reason: Shortness Of Breath) RF: 0 spironolactone 50 mg Tablet 50 mg PO DAILY RF: 0 Throat [place] 1.4 % Aerosol,[place] See Rx Instructions .ROUTE .COMPLEX RF: 0 Mucinex Liquid 5 ml PO BID PRN (Reason: unknown) RF: 0 ciprofloxacin HCl [Cipro] 500 mg Tablet 500 mg PO BID 8 Days Qty: 14 RF: 0 diltiazem HCl [Cardizem CD] 120 mg capsule,extended release 24hr 120 mg PO BID 30 Days Qty: 60 RF: 0 morphine 10 mg/5 mL Solution See Rx Instructions .ROUTE .COMPLEX RF: 0 apixaban 5 mg Tablet 5 mg PO BID RF: 0 pravastatin 40 mg Tablet 40 mg PO DAILY RF: 0 ranitidine HCl 150 mg Tablet 150 mg PO DAILY RF: 0 sennosides-docusate sodium 8.6-50 mg Tablet 1 tab PO BID PRN (Reason: Constipation) Qty: 30 RF: 0 Lactobacillus acidoph-L.bulgar [Floranex] 1 million cell Tablet 1 tab peg-tube BID Qty: 14 RF: 0 acetaminophen 650 mg/20.3 mL Solution 650 mg PO Q4H PRN (Reason: Mild Pain Or Increase Temp) Qty: 300 RF: 0 diltiazem HCl 30 mg tablet 30 mg PO Q6H RF: 0 Discharge Orders: Discharge Order (Routine); Ordered 11/24/19 Ordered By: Anderson Handley Discharge Diet: Usual diet Discharge Activity: Increase activity as tolerated Activity Restrictions/Additional Instructions: The nurse will take you directly from the ER to Dr. Taveras's office to be seen. The human services case manager will make arrangements for you to follow-up with 1 of the ear nose and throat doctors. Discharge Date/Time: 11/24/19 08:55 Sign Out Sign Out Data: Patient Sign Out occurred on 11/24/19 at 06:02. Patient's care was discussed, and care was transferred from to Anderson Handley DO. Coding Level of Care Code ED Marshmallow Machine Operator for Chg Fwd Exam Comprehensive Documented by User: Anderson Handley DO 11/24/19 11:00 HPI - General Adult General: Chief complaint: Shortness of Breath/Dyspnea Stated complaint: sob Time Seen by Provider: 11/24/19 04:37 PFSH ED PFSH: Medical History Atrial fibrillation CKD (chronic kidney disease) 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 Colon cancer adjuvant chemo/FOLFOX and resection in past COPD (chronic obstructive pulmonary disease) Hyperlipidemia Hypertension Neuropathy post chemotherapy for colon cancer Obstructive sleep apnea Has not used CPAP since he got tracheostomy Squamous cell carcinoma of supraglottis Surgical History History of colon resection History of tonsillectomy History of ventral hernia repair mesh Port-A-Cath in place Ja 06/[address] Uses feeding tube Family History Mother Cancer breast Dementia Hypertension Diabetes Brother Diabetes Sister Diabetes Social History Smoking and tobacco status: former smoker Quit status (tobacco): has quit using tobacco Year quit tobacco: 2007 - >0.5PPD x 30 Years Alcohol intake: never Lives independently: Yes Household members: spouse Marital status: Current occupational status: disabled History of recent travel: No Current gender identity: Male Course Vital Signs: Vital signs: Vital Signs Temperature 98.0 F 11/24/19 04:47 Pulse Rate 99 11/24/19 09:08 Respiratory Rate 18 11/24/19 09:08 Blood Pressure 124/74 11/24/19 09:08 Pulse Oximetry 93 11/24/19 09:08 MDM - General Adult MDM Narrative: Medical decision making narrative: Patient monitored for the in the ER for a couple of hours. His sats remained good however anytime the stylette and the filter put back into the tracheostomy he has a lot of apprehension with his ability to maintain his sats he is able to maintain his sats in the mid 90s with that but he feels like his work of breathing is increased. Discussed Dr. Taveras at this point will go ahead and leave the stylette out have him put a surgical mask over it we gave him several surgical mass to use. He did have suctioning multiple times by RT and they were able to get quite a bit of mucus out of there. His chest x-ray was unremarkable. We see the report. He was felt to see Dr. Taveras today but missed the appointment because he was in the emergency room I called Dr. Taveras he would gladly see him immediately after he left the ER he was brought from the ER to Dr. Taveras's office by wheelchair. Were also going to try to have case management get him set up to see ENT for follow-up. This tracheostomy was placed in [place] due to the COVID pandemic as well as the patient's own medical condition making it difficult to travel he does not have access to adequate follow-up on this. Discharge Plan Discharge Patient Disposition: Home, Self-Care Clinical Impression: Tracheostomy in place, Squamous cell carcinoma of supraglottis Condition: Stable Prescriptions: No Action ipratropium-albuterol 0.5 mg-3 mg(2.5 mg base)/3 mL solution for nebulization 3 ml INHALATION QID Qty: 360 RF: 3 budesonide [Pulmicort] 0.5 mg/2 mL suspension for nebulization 0.25 mg INHALATION BID Qty: 120 RF: 3 torsemide 10 mg Tablet 50 mg PO DAILY RF: 0 Hold Instructions: Resume on 12/15/19. until seen by primary care Lidocaine Viscous 2 % Solution See Rx Instructions .ROUTE .COMPLEX PRN (Reason: unknown) RF: 0 albuterol sulfate 90 mcg/actuation Hfa Aerosol Inhaler 2 puff INHALATION QID PRN (Reason: Shortness Of Breath) RF: 0 spironolactone 50 mg Tablet 50 mg PO DAILY RF: 0 Throat [place] 1.4 % Aerosol,[place] See Rx Instructions .ROUTE .COMPLEX RF: 0 Mucinex Liquid 5 ml PO BID PRN (Reason: unknown) RF: 0 ciprofloxacin HCl [Cipro] 500 mg Tablet 500 mg PO BID 8 Days Qty: 14 RF: 0 diltiazem HCl [Cardizem CD] 120 mg capsule,extended release 24hr 120 mg PO BID 30 Days Qty: 60 RF: 0 morphine 10 mg/5 mL Solution See Rx Instructions .ROUTE .COMPLEX RF: 0 apixaban 5 mg Tablet 5 mg PO BID RF: 0 pravastatin 40 mg Tablet 40 mg PO DAILY RF: 0 ranitidine HCl 150 mg Tablet 150 mg PO DAILY RF: 0 sennosides-docusate sodium 8.6-50 mg Tablet 1 tab PO BID PRN (Reason: Constipation) Qty: 30 RF: 0 Lactobacillus acidoph-L.bulgar [Floranex] 1 million cell Tablet 1 tab peg-tube BID Qty: 14 RF: 0 acetaminophen 650 mg/20.3 mL Solution 650 mg PO Q4H PRN (Reason: Mild Pain Or Increase Temp) Qty: 300 RF: 0 diltiazem HCl 30 mg tablet 30 mg PO Q6H RF: 0 Discharge Orders: Discharge Order (Routine); Ordered 11/24/19 Ordered By: Anderson Handley Discharge Diet: Usual diet Discharge Activity: Increase activity as tolerated Activity Restrictions/Additional Instructions: The nurse will take you directly from the ER to Dr. Taveras's office to be seen. The human services case manager will make arrangements for you to follow-up with 1 of the ear nose and throat doctors. Discharge Date/Time: 11/24/19 08:55 Sign Out Sign Out Data: Patient Sign Out occurred on 11/24/19 at 06:02. Patient's care was discussed, and care was transferred from to Anderson Handley DO. Coding Level of Care Code ED Marshmallow Machine Operator for Bernadine Fwd Exam Comprehensive
--- NOTE | 2019-11-24 05:34 | PC.RESP ---
Per Dr. Leslie RT may administer up to three duoneb breathing treatments.
--- NOTE | 2019-11-24 06:09 | PC.NURSE ---
RT reports after trach suctioning, pt has complaints of h/a. VO obtained from Dr Handley for 650mg of acetaminophen PO
[2019-11-24] MEDS: acetaminophen 325 mg Tablet 650 MG PO (06:13)
--- NOTE | 2019-11-24 06:23 | PC.NURSE ---
acetaminophen administered crushed mixed with water through feeding tube. During administration, pt states he has increased SOB. RR24-26, shallow with pulse ox of 94% on r/a, HR 110-120
--- NOTE | 2019-11-24 08:31 | PC.NURSE ---
RT at bedside to suction
== END 2019-11-24 08:55 | disposition home or self-care (01) ==
PROVIDERS: Emergency Provider Family Medicine
DX: J04.10 Acute tracheitis without obstruction (principal); C32.1 Malignant neoplasm of supraglottis; J44.9 Chronic obstructive pulmonary disease, unspecified; Z93.0 Tracheostomy status; I48.91 Unspecified atrial fibrillation; Z79.01 Long term (current) use of anticoagulants; I12.9 Hypertensive chronic kidney disease with stage 1 through stage 4 chronic kidney disease, or unspecified chronic kidney disease; N18.9 Chronic kidney disease, unspecified; E78.5 Hyperlipidemia, unspecified; G47.33 Obstructive sleep apnea (adult) (pediatric); Z87.891 Personal history of nicotine dependence
CPT/HCPCS: 12345; 71045; 94640; 99283

== ENCOUNTER 2019-11-25 13:38 | Emergency (ER) | payer OTHER, SELFPAY ==
[2019-11-25 14:15] VITALS: BP 113/84; PULSE 102; RESP 20; TEMP 37.7; O2SAT 91; BMI 37.6
--- NOTE | 2019-11-25 14:27 | XR_ITS ---
WS: [id number] CHEST XRAY TECHNIQUE: Portable chest. CLINICAL INFORMATION: dyspnea/cough COMPARISON: November 24, 2019 FINDINGS: Right Port-A-Cath with tip in SVC. Heart: Cardiomegaly. Tortuous thoracic aorta. Lungs: Chronic emphysematous changes. No focal pneumonia. Trace right pleural fluid with slight blunt ing of the right costophrenic angle. Trace bibasilar atelectasis. Bones: Normal visualized bony structures. XR/XR chest 1V portable [id number] IMPRESSION: 1. Cardiomegaly with tortuous thoracic aorta. 2. Stable right Port-A-Cath. 3. Trace right pleural fluid with slight atelectasis in the lung bases.
--- NOTE | 2019-11-25 14:38 | W.ED.SOB ---
HPI - SOB/Dyspnea General: Chief Complaint: Shortness of Breath/Dyspnea Stated Complaint: sob Time Seen by Provider: 11/25/19 14:26 History of Present Illness: HPI Narrative: 69-year-old male returns the emergency room with complaints of shortness of breath unfortunately Mr. Thomas is been here several times this week he has a laryngeal cancer and we see recently had tracheotomy done he has a cannula with a filter Tube but is unable to tolerate that he gets a lot of mucus plugging to it and has to be suctioned. He does suction himself at home but he has become quite anxious with this his sats are good he does have a little bit of a low-grade fever but nothing clinically significant. We did see him yesterday when he had the similar presentation we suctioned him several times while he was here did get a fair amount of fluid out of it and then we contacted Dr. Taveras he went to see Dr. Taveras immediately after leaving the emergency room. Dr. Taveras consider concurred with our assessment and recommended that he leave the cannula and filter Out and instead cover it with a surgical mask. Patient has had continued trouble with secretions from there and when he wakes up he feels very full and requires self suctioning. He is very worried that he will stop breathing. Dr. Taveras did talk to the ENT physician who did his surgery and [place], they advised tobramycin nebulizers. MD elicited complaint: shortness of breath, cough and anxiety Pertinent past history: COPD and tracheostomy Onset (ago): week(s) Context: recent illness (Recent tracheostomy placement) and anxiety Timing: intermittent Severity: moderate Exacerbating factors: lying flat, exertion, coughing and stress Relieving factors: upright position and other (Suctioning) Known history of: COPD Associated symptoms: Reports no associated symptoms; Deny abdominal pain, chest pain, fever(s), nausea, orthopnea or vomiting Treatment prior to arrival: bronchodilator and other (Suctioning) Review of Systems Const: Denies: fever, chills, body aches, change in appetite, fatigue or malaise ENMT: Denies: throat pain, ear pain, nasal discharge or nasal congestion Card: Denies: chest pain, edema, shortness of breath on exertion or shortness of breath when lying down Resp: Denies: shortness of breath, productive cough or non-productive cough GI: Denies: abdominal pain, nausea, vomiting, vomiting blood, coffee grounds in vomit, diarrhea, constipation, bloating, blood in stool or black tarry stool : Denies: flank pain, painful urination, urinary frequency or urinary urgency Skin/Breast: Denies: rash or itching PFSH ED PFSH: Social History Smoking and tobacco status: former smoker Quit status (tobacco): has quit using tobacco Year quit tobacco: 2007 - >0.5PPD x 30 Years Alcohol intake: never Lives independently: Yes Household members: spouse Marital status: Current occupational status: disabled History of recent travel: No Current gender identity: Male Physical Exam Const: COMMON NORMALS: no apparent distress HENMT: COMMON NORMALS: normocephalic, head/scalp atraumatic, hearing grossly normal bilaterally, external ears normal, EAC's normal, TM's normal bilaterally, nasal mucous membranes and turbinates normal, moist oral mucous membranes and oropharynx normal HEAD & SCALP: normocephalic and atraumatic NOSE: nasal mucous membranes and turbinates normal EXTERNAL EAR: Yes external ears normal EXTERNAL AUDITORY CANAL: EAC's normal TYMPANIC MEMBRANE: TM's normal bilaterally Eye: COMMON NORMALS: PERRL, EOMs intact bilaterally, conjunctivae normal and no scleral icterus CONJUNCTIVA: Yes conjunctivae normal PUPIL: Yes PERRL Neck/C-Spine: COMMON NORMALS: full ROM, no lymphadenopathy, supple and no JVD OTHER: Tracheostomy in place covered by a surgical mass there is a moderate amount of thin secretions about it. Lymph: LYMPHATIC: no lymphadenopathy noted and no lymphedema noted Resp: COMMON NORMALS: normal respiratory effort, no retractions, no use of accessory muscles and clear to auscultation bilaterally AUSCULTATION: clear to auscultation bilaterally Cardio: COMMON NORMALS: no JVD, regular rate, regular rhythm and no murmurs RATE: regular rate RHYTHM: regular rhythm GI: COMMON NORMALS: soft to palpation and no hepatosplenomegaly AUSCULTATION: Yes normoactive bowel sounds PALPATION: Yes soft, No tender, No guarding and Yes no hepatosplenomegaly Extremity: COMMON NORMALS: normal to inspection, normal capillary refill, no clubbing, cyanosis or edema, no calf tenderness and no pedal edema Skin: COMMON NORMALS: no rashes or lesions noted GENERAL SKIN EXAM: no rashes or lesions noted Course Vital Signs: Vital signs: Vital Signs Temperature 99.9 F H 11/25/19 14:15 Pulse Rate 68 11/25/19 16:48 Respiratory Rate 16 11/25/19 16:48 Blood Pressure 99/63 11/25/19 16:48 Pulse Oximetry 99 11/25/19 16:48 MDM - SOB/Dyspnea MDM Narrative: Medical decision making narrative: Patient is been having quite a bit of difficulty since the at this tracheostomy. With the cannula and in the filter he can feel like he breathes well enough when he takes it out the cannot the tracheostomy tube gets crusted with mucus. Is seen Dr. Taveras yesterday morning after seen here in the ER and Dr. Downs contacted his ear nose and throat doctor to put the tracheostomy in and they had recommended leaving the cannula out however he still gets plugging up with the tube. They talked about getting a trilogy machine for him but unfortunately because the tracheostomy has not coughed he can use that. ENT follow-up is being arranged in [facility]. RT came down to see the patient and help clean the tracheostomy and suction it. At this point the patient requires nebulized saline humidified by machine to maintain the tracheostomy tube he otherwise will develop thick tenacious sputum as he has been which causes severe anxiety is precipitated multiple ER visits. Begins to block the tracheostomy tube opening and he has difficulty managing it at home. He does manage suction at home but with the nebulized saline he would be able to better manage it and be more comfortable. Additionally I talked to Dr. Taveras about this today and we both agreed starting him on Klonopin would also be helpful. Dr. Taveras will see him on [phone] in his office. Lab Data: Labs: Lab Results 11/25/19 11/25/19 11/25/19 Range/Units 14:53 15:20 15:20 WBC 9.0 (4.0-10.0) 10^3/ uL RBC 3.99 L (4.1-5.3) 10^6/u L Hgb 12.1 (11.7-16.6) g/dL Hct 39.5 L (42.0-52.0) % MCV 99.0 H (80-94) fL MCH 30.3 (28.0-34.0) pg MCHC 30.6 (30.0-36.0) g/dL RDW 13.6 (12.1-15.1) % Plt Count 294 (130-400) 10^3/c mm MPV 9.4 (7.4-10.4) fL Neut % (Auto) 83.7 % Lymph % (Auto) 5.0 % Taylor % (Auto) 9.1 % Eos % (Auto) 1.7 % Baso % (Auto) 0.1 % Neut # (Auto) 7.5 (1.8-7.7) 10^3/u L Lymph # (Auto) 0.5 L (0.8-4.8) 10^3/u L Taylor # (Auto) 0.8 (0.2-0.9) 10^3/u L Eos # (Auto) 0.2 (0.0-0.8) 10^3/u L Baso # (Auto) 0.0 (0.0-0.1) 10^3/u L Nucleated RBC % (a uto) 0 % Nucleated RBCs # 0.0 /100WBC Specimen Type Arterial Sample Site Radial, left ABG pH 7.51 H (7.35-7.45) ABG pCO2 40.7 (35-45) mmHg ABG pO2 56.4 L (80.0-100.0) mmH g ABG HCO3 32.2 H (22-26) mmol/L ABG O2 Saturation 91.7 ABG Base Excess 8.4 H (-2.0-2.0) mmol/ L Neymar Test Pos A-a O2 Gradient 42.6 H (5-10) mmHg Hematocrit 36.4 L (42-52) % Hgb O2 Saturation 92.5 L (95-100) % Carboxyhemoglobin 1.0 (0.4-20.1) %THgb Total Hemoglobin 11.9 L (14-18) g/dL Sodium 136.0 135 L (131-143) mmol/L Potassium 4.4 4.3 (3.5-5.0) mmol/L Glucose 106.0 124 H (70-115) mg/dL Ionized Calcium 1.1 (1.1-1.4) mmol/L O2 Delivery Device Room air FiO2 21.0 % Trader ID cak Chloride 94 L (98-107) mmol/L Carbon Dioxide 31 H (22-29) mmol/L Anion Gap 14.3 (5-19) BUN 19 (8-23) mg/dL Creatinine 1.2 (0.7-1.2) mg/dL GFR Calculation 60.2 L (90-130) mL/min Calculated Osmolal ity 278 L (285-295) mOsm/k g Calcium 9.5 (8.5-10.5) mg/dL Total Bilirubin 0.6 (0.15-1.2) mg/dL AST 23 (0-40) U/L ALT 46 H (0-41) U/L Alkaline Phosphata se 146 H (40-130) IU/L Total Protein 6.7 (6.6-8.7) g/dL Albumin 3.3 L (3.5-5.2) g/dL Globulin 3.4 (1.3-4.6) g/dL Discharge Plan Discharge Patient Disposition: Home, Self-Care Clinical Impression: Tracheostomy in place, COPD (chronic obstructive pulmonary disease), Squamous cell carcinoma of supraglottis Condition: Stable Prescriptions: New Klonopin 0.5 mg tablet 0.5 mg PO Q12H Qty: 30 RF: 0 No Action ipratropium-albuterol 0.5 mg-3 mg(2.5 mg base)/3 mL solution for nebulization 3 ml INHALATION QID Qty: 360 RF: 3 budesonide [Pulmicort] 0.5 mg/2 mL suspension for nebulization 0.25 mg INHALATION BID Qty: 120 RF: 3 tobramycin 300 mg/4 mL solution for nebulization 300 mg INHALATION Q12H 14 Days Qty: 112 RF: 0 torsemide 10 mg Tablet 50 mg PO DAILY RF: 0 Hold Instructions: Resume on 12/15/19. until seen by primary care Lidocaine Viscous 2 % Solution See Rx Instructions .ROUTE .COMPLEX PRN (Reason: unknown) RF: 0 albuterol sulfate 90 mcg/actuation Hfa Aerosol Inhaler 2 puff INHALATION QID PRN (Reason: Shortness Of Breath) RF: 0 spironolactone 50 mg Tablet 50 mg PO DAILY RF: 0 Throat [place] 1.4 % Aerosol,[place] See Rx Instructions .ROUTE .COMPLEX RF: 0 Mucinex Liquid 5 ml PO BID PRN (Reason: unknown) RF: 0 ciprofloxacin HCl [Cipro] 500 mg Tablet 500 mg PO BID 8 Days Qty: 14 RF: 0 diltiazem HCl [Cardizem CD] 120 mg capsule,extended release 24hr 120 mg PO BID 30 Days Qty: 60 RF: 0 morphine 10 mg/5 mL Solution See Rx Instructions .ROUTE .COMPLEX RF: 0 apixaban 5 mg Tablet 5 mg PO BID RF: 0 pravastatin 40 mg Tablet 40 mg PO DAILY RF: 0 ranitidine HCl 150 mg Tablet 150 mg PO DAILY RF: 0 sennosides-docusate sodium 8.6-50 mg Tablet 1 tab PO BID PRN (Reason: Constipation) Qty: 30 RF: 0 Lactobacillus acidoph-L.bulgar [Floranex] 1 million cell Tablet 1 tab peg-tube BID Qty: 14 RF: 0 acetaminophen 650 mg/20.3 mL Solution 650 mg PO Q4H PRN (Reason: Mild Pain Or Increase Temp) Qty: 300 RF: 0 diltiazem HCl 30 mg tablet 30 mg PO Q6H RF: 0 Discharge Orders: Discharge Order (Routine); Ordered 11/25/19 Ordered By: Anderson Handley Referrals: Sheyla Taveras MD [Physician] - Discharge Diet: Usual diet Discharge Activity: Resume usual activity Activity Restrictions/Additional Instructions: Suction your tracheostomy tube regularly on a scheduled basis throughout the day and immediately before bed and immediately when waking up. Start on the Klonopin twice a day. Call Dr. Rivera's office he would like to see you on 11/28/2019 Discharge Date/Time: 11/25/19 16:50 Coding Level of Care Code ED [facility] F[facility] Exam Comprehensive
[2019-11-25 15:04] LABS: ABG PCO2 40.7 mmHg (35-45); ABG PH Result 7.51 (7.35-7.45); Alveolar-Arterial Oxygen Gradi 42.6 mmHg (5-10); Arterial Blood Gas Hematocrit 36.4 % (42-52); Base Excess ABG 8.4 mmol/L (-2.0-2.0); Blood Gas Allen Test Pos; Blood Gas Sample Site Radial, left; Blood Gas Sample Type Arterial; HCO3 ABG 32.2 mmol/L (22-26); HGB O2 Sat 92.5 % (95-100); Ionized Calcium Level - ABG 1.1 mmol/L (1.1-1.4); Oxygen Device ROOM AIR; Oxygen Saturation ABG 91.7; PO2 ABG 56.4 mmHg (80.0-100.0); Potassium Level - ABG 4.4 mmol/L (3.5-5.0); Total Hemoglobin 11.9 g/dL (14-18)
[2019-11-25 15:30] LABS: Basophils % 0.1 %; Eosinophils # 0.2 10^3/uL (0.0-0.8); Eosinophils % 1.7 %; Hematocrit 39.5 % (42.0-52.0); Hemoglobin 12.1 g/dL (11.7-16.6); Lymphocytes # 0.5 10^3/uL (0.8-4.8); Mean Corpuscular HGB Conc 30.6 g/dL (30.0-36.0); Mean Corpuscular Hemoglobin 30.3 pg (28.0-34.0); Mean Platelet Volume 9.4 fL (7.4-10.4); Monocytes # 0.8 10^3/uL (0.2-0.9); Monocytes % 9.1 %; Neutrophils # 7.5 10^3/uL (1.8-7.7); Neutrophils % 83.7 %; Nucleated Red Blood Cells % 0 %; Platelet Count 294 10^3/cmm (130-400); Red Blood Count 3.99 10^6/uL (4.1-5.3); Red Cell Distribution Width 13.6 % (12.1-15.1)
[2019-11-25] MEDS: LORazepam 2 mg/mL INJ 1 mL IVP (15:44)
[2019-11-25 15:50] LABS: Alanine Aminotransferase 46 U/L (0-41); Albumin Level 3.3 g/dL (3.5-5.2); Alkaline Phosphatase 146 IU/L (40-130); Anion Gap 14.3 (5-19); Aspartate Amino Transferase 23 U/L (0-40); Blood Urea Nitrogen 19 mg/dL (8-23); Calcium 9.5 mg/dL (8.5-10.5); Carbon Dioxide 31 mmol/L (22-29); Chloride 94 mmol/L (98-107); Globulin 3.4 g/dL (1.3-4.6); Glomerular Filtration Rate 60.2 mL/min (90-130); Glucose 124 mg/dL (65-115); Osmolality Calculated 278 mOsm/kg (285-295); Potassium 4.3 mmol/L (3.5-5.1); Sodium 135 mmol/L (136-145); Total Bilirubin 0.6 mg/dL (0.15-1.2); Total Protein 6.7 g/dL (6.6-8.7)
[2019-11-25 16:22] VITALS: RESP 17; O2SAT 99
[2019-11-25] MEDS: morphine 4 mg/mL SDV 1 mL 2 MG IVP (16:22)
[2019-11-25 16:48] VITALS: BP 99/63; PULSE 68; RESP 16; O2SAT 99
--- NOTE | 2019-11-29 11:03 | PC.SOCIAL ---
Received call from ENT provider Dr. Isbell who placed trach. We reviewed in detail that last few visits including the culture results that have been communicated to PCP and that patient has been evaluated by Pulmonology/ Critical Care Dr Taveras. We discussed the ongoing thick secretions reported out over the last few visits. We discussed Dr Taveras sent script to PCP office last week to obtain nebulized antibiotic for patient. Not sure when this was started or if it has yet. Dr Isbell recommends patient suction often and to keep trach humidified. She will update patient that she is concerned with removing inner cannula due to risk of clogging the outer cannula and inability to breathe. She will call patient and follow up with him. At this point she does not think a local ENT is needed but may be requested in the near future based on patient outcomes and the need to limit extensive travel under the COVID circumstances etc. She will correspond with patients PCP as well. The ENT office number is [phone] Contact is Kellee Recinos. Fax is [phone]. Will fax last two DC summary's, Negative COVID result from 11/11/2019 and last two physician notes from ED providers to this provider to review. All questions answered to the best of my ability and thanks provider for the follow up.
== END 2019-11-25 16:50 | disposition home or self-care (01) ==
PROVIDERS: Emergency Provider Family Medicine
DX: J44.9 Chronic obstructive pulmonary disease, unspecified (principal); C32.1 Malignant neoplasm of supraglottis; Z93.0 Tracheostomy status; F41.9 Anxiety disorder, unspecified; I12.9 Hypertensive chronic kidney disease with stage 1 through stage 4 chronic kidney disease, or unspecified chronic kidney disease; N18.9 Chronic kidney disease, unspecified; I48.91 Unspecified atrial fibrillation; E78.5 Hyperlipidemia, unspecified; E87.0 Hyperosmolality and hypernatremia; Z79.01 Long term (current) use of anticoagulants; Z97.8 Presence of other specified devices; Z87.891 Personal history of nicotine dependence
CPT/HCPCS: 12345; 36600; 71045; 80051; 80053; 82810; 83986; 85025; 96374; 96375; 99281; 99283; J2060; J2270

== ENCOUNTER 2019-12-02 09:53 | Outpatient (RCR) | payer OTHER, SELFPAY ==
[2019-11-29] MEDS: cefepime 2,000 MG in sodium chloride 0.9% (plus) 50 ML 100 MG IV (16:33)
--- NOTE | 2019-11-29 20:05 | ONC FU_ITS ---
Dr. Sifuentes Patient Follow-Up Note Patient: Edgar Thomas Unit #: [id number]: [id number] Dicatated By: Rafael Sifuentes M.D.Date of Visit:Nov 29, 2019 Onc Med Follow-up/Prog Note Chief Complaint: Supraglottic cancer. 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 He presented with right ear pain about 4 months duration and a sore throat for 1 to 2 months. He had no dysphagia, choking, or difficulty breathing. A CT of the neck and chest showed a tumor in the right supraglottic area. On 05/02/2019 he underwent tracheostomy and direct microlaryngoscopy with biopsy of laryngeal biopsy and biopsy of pretracheal lymph node. Pathology on the right alicia-larynx biopsy showed invasive squamous cell carcinoma. A single pretracheal lymph node was negative for malignancy. He was seen by Dr. Banks on 05/11/2019 for consideration of radiation therapy. He underwent pet imaging on 05/06/2019. He was found to have a right supraglottic mass that extended to the right true vocal cord with an SUV of 22.7. He had bilateral jugulodigastric nodes that were too small to characterize. He was deemed unsuitable for concurrent high-dose cisplatin chemotherapy with radiation therapy due to his chronic renal insufficiency, peripheral neuropathy and other comorbid conditions. As such, he was given weekly carboplatin along with capecitabine daily on the days of radiation. He underwent right subclavian Mediport placement per Dr. Peres on 06/16/2019 at [facility]. He also had dental extractions. His past medical history includes colon cancer in 2011 at which time he was treated with what sounds like FOLFOX. His reports that one of his chemo was taken away because of cold sensitivity and numbness and tingling in his fingers. He was able to continue with the pump . He reported that he tolerated that well other than the side effects from the oxaliplatin and he had no nausea or excessive diarrhea at that time. He began combined chemoradiation with weekly carboplatin/daily Xeloda on the day of radiation therapy on 06/20/2019. His treatment was complicated by neutropenia and diarrhea, necessitating treatment delays. In all he received 4 infusions of carboplatin at weekly dosing from 06/20/2019 through 08/04/2019. Xeloda was put on hold as of 07/18/2019. He completed his radiation therapy on 08/09/2019. Follow-up CT scan of neck done on 09/21/2019 showed significant soft tissue thickening and edema in the glottic and supraglottic region. There was continued asymmetric thickening of the true and false vocal cord region. No discrete enhancing mass was seen. The changes appeared to be posttreatment related. There were no enlarging lymph nodes. Scattered ill-defined opacifications in the right upper lobe were felt to be probably related to pneumonitis. Repeat CT scan in 3 months was recommended. During follow-up he developed increasing neck pain, severe enough to require opiate pain medication. He then developed increasing mucus production. On 11/19/2019 he was admitted to the hospital. His sputum culture from 11/15/2019 grew pseudomonas aeruginosa. He was discharged home on antibiotic coverage with ciprofloxacin. On 11/25/2019 he was seen by Dr. Taveras as an outpatient. He had recommended further antibiotic therapy with nebulized tobramycin. [facility], and [facility] apparently is still in [facility]. In the meantime, a restaging PET/CT on 11/26/2019 showed evidence of progression of the primary glottic carcinoma with abnormal activity in the right true vocal cord and in bilateral arytenoid and subglottic territories, maximum SUV 21.8. There was new activity at the tracheostomy site, SUV 19.0, possibly representing infection, but malignant implant was not excluded. A new 1.6 cm solid nodule in the posterior lingula had SUV 7.9, consistent with metastatic disease. Mildly FDG positive left paratracheal lymph nodes appeared reactive, but with micrometastatic disease not excluded. He is seen today for an unplanned visit. His main complaint is he is having copious mucus production to his tracheostomy, such that he is having to suction almost constantly. He is having significant pain in the neck area. He has very limited activity. His ECOG score is 3. Appetite seems to be okay. He is tolerating 6 cans of supplement daily. He has not had fever or night sweats. He has shortness of breath and cough, and he is having some pain in the right side of the chest. He does not complain of nausea. His acid reflux is managed adequately with ranitidine. Bowel and bladder function have been okay. He also is having pain in his back and hips. He still has numbness/tingling in his hands/fingers. Medications: Acetaminophen 2 Tablet (of 650/3 mg/mL) Solution Oral q 4 hours PRN, Albuterol Sulfate HFA 2 puff(s) (of 108 (90 base) mcg/act) Aerosol, solution Inhalation four times a day PRN, Apixaban 1 Tablet (of 5 mg) Oral b.i.d., Budesonide-Formoterol Fumarate 2 puff(s) (of 160-4.5 mcg/act) Aerosol Inhalation b.i.d., Cartia XT 1 Capsule (of 120 mg) Capsule SR 24 HR Oral b.i.d., Floranex 1 Tablet Oral b.i.d., Hydrogen Peroxide (3 %) Miscellaneous Topical Take as Directed, Ipratropium-Albuterol 3 mL (of 0.5-2.5 (3) mg/3mL) Solution Inhalation four times a day, Lidocaine Viscous HCl Solution Mouth/throat PRN, Morphine Sulfate (10 mg/5mL) Solution Oral b.i.d. PRN, Mucinex Fast-Max Congest Cough 5 mL Liquid Oral b.i.d. PRN, Multivitamin Iron-Free 1 Tablet Oral daily, Pravastatin Sodium 1 Tablet (of 40 mg) Oral daily, raNITIdine HCl 1 Tablet (of 150 mg) Oral daily, Sennosides-Docusate Sodium 1 Tablet (of 8.6-50 mg) Oral b.i.d., Sodium Chloride (0.9 %) Aerosol, solution Inhalation Take as Directed, Spironolactone 1 Tablet (of 50 mg) Oral daily, Sterile Water for Irrigation Solution Irrigation Take as Directed, THROAT SPRAY Liquid PRN, Torsemide 5 Tablet (of 10 mg) Oral daily PRN Allergies: No Known Allergies. Review of Systems: Constitutional - His energy level is very low. He has very limited activity. His appetite is OK. He is on tube feeding. His weight is down nearly 10 pounds from previous visit. No fever, chills, hot flashes, or night sweats. ECOG score is 3, ENMT - No sinus congestion/drainage. His mouth and throat are just a little sore now, but he is very sore in the area of the tacheostomy and he is having copious amount of mucus requiring frequent suctioning, Hematologic/Lymphatic - He bruises easily, Respiratory - He has shortness of breath and cough. No pleuritic pain or hemoptysis, Cardiovascular - No angina pain. He has atrial fibrillation, Gastrointestinal - No nausea or vomiting. His heartburn is adequately controlled with Zantac. No diarrhea or constipation. No blood in the stool or black stools, Genitourinary (M) - No dysuria or hematuria. No urinary frequency. No urgency or incontinence, Musculoskeletal - He also has pain in his hips and back, Integumentary - No skin complications, Neurologic - No headache or dizziness. He has numbness and tingling in his fingers, Psychiatric - No anxiety or depression. He has difficulty sleeping. Vital Signs: Performed on Nov 29, 2019 15:24 Height - 71.00 in Weight - 241.0 lbs (LOW) BSA - 2.28 sq.m BMI - 33.61 (HIGH) Temperature - 98.7 F Pulse - 95 /min Respiration - 24 /min BP - 90/56 mm(hg) O2 Sat - 94 % (LOW) Pain - 5 Physical Examination: Constitutional - He appears generally weak and he has constant upper airway gurgling, Eyes - Sclerae nonicteric. Conjunctivae clear, ENMT - There is a slight coating on the tongue. There are no other lesions noted in the oral cavity, Neck - The neck is generally indurated following the radiation. There is more prominent swelling and induration under the tongue and in the area surrounding the tracheostomy. That area is very tender to touch, Hematologic/Lymphatic - No cervical, clavicular, or axillary adenopathy noted, Respiratory - There are coarse rhonchi audible on inspiration and expiration throughout both lung pérez, Cardiovascular - Heart rhythm is irregular. There is no murmur, gallop, or rub noted, Abdomen - Moderately distended. The PEG tube site appears unremarkable. Liver and spleen are not enlarged. There is no abdominal mass or ascites noted and there is no inguinal adenopathy, Extremities - There is mild lower extremity edema, worse on the left, Integumentary - No rashes. No suspicious skin lesions noted, Neurologic - No focal neurologic deficits noted. Lab/Imaging: Test performed on Nov 18, 2019 12:30 Sodium 151 mmol/L Potassium 3.8 mmol/L Chloride 105 mmol/L CO2 32 mmol/L Anion Gap 17.8 BUN 42 mg/dL Creatinine 1.1 mg/dL Cr Clearance (Est) 102.9300 mL/min eGFR 66.6 mL/min Glucose 119 mg/dL Calcium 9.0 mg/dL Protein, Total 6.5 g/dL Albumin 3.1 g/dL Globulin 3.4 g/dL Bilirubin, Total 0.3 mg/dL ALT (SGPT) 197 U/L AST (SGOT) 42 U/L Alkaline Phosphatase 119 IU/L WBC 9.9 10 3/uL RBC 4.26 10 6/uL HGB 13.1 g/dL HCT 44.7 % MCV 104.9 fL MCH 30.8 pg MCHC 29.3 g/dL RDW 13.4 % Platelet Count 233 10 3/cmm MPV 11.7 fL Neutrophils 8.5 10 3/uL Lymphocytes 0.4 10 3/uL Monocytes 0.6 10 3/uL Eosinophils 0.2 10 3/uL Basophils 0.0 10 3/uL Neutrophil % 85.5 % Lymphocyte % 4.3 % Monocyte % 6.0 % Eosinophil % 2.4 % Basophils % 0.2 % Impression: 1. 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 By PET/CT there was involvement in the right true vocal cord. Bilateral level 4 jugulodigastric lymph nodes are too small to characterized. 2. He was treated with radiation, currently with carboplatin/cape, as he was deemed ineligible for high-dose cisplatin chemotherapy. 3. His treatment was complicated by neutropenia and diarrhea, necessitating treatment delays and reductions. He completed radiation on 08/09/2020. 4. On 11/19/2019 is admitted to the hospital with increasing neck pain and mucus production. Sputum culture had grown pseudomonas aeruginosa. Despite outpatient antibiotic therapy, his symptoms have continued to worsen. 5. Following consultation with Dr. Taveras on 11/25/2019 [facility], but that apparently still in process. 6. In the meantime, his restaging PET/CT shows evidence of local progression of the glottic carcinoma and a suspected metastatic lesion in the lingula. Uptake at the tracheostomy site appeared consistent with infectious process, though malignant implant was not excluded. Overall, it appears likely that he is showing local disease recurrence/progression and there is likely now pulmonary metastatic involvement. His symptoms, though, appear to be associated with acute tracheitis to the Pseudomonas. Plan: He will begin antibiotic coverage with cefepime 2 g IV today. He will return for another dosage here tomorrow, at which time I will try and arrange for continued outpatient therapy at 2 g IV every 12 hours. He does have a Port-A-Cath for venous access. He can be transitioned to nebulized tobramycin soon as that is available. In the meantime, I also will request a PD-L1 expression on his biopsy to assist with further treatment planning for the underlying malignancy. Signed By: Rafael Sifuentes M.D. <<Signature on File>>
[2019-11-30] MEDS: cefepime 2,000 MG in sodium chloride 0.9% (plus) 50 ML 100 MG IV (09:50)
[2019-11-30] MEDS: sodium chloride 0.9% 100 ML 75 ML (09:50)
--- NOTE | 2019-11-30 17:35 | ONC FU_ITS ---
Dr. 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 He presented with right ear pain about 4 months duration and a sore throat for 1 to 2 months. He had no dysphagia, choking, or difficulty breathing. A CT of the neck and chest showed a tumor in the right supraglottic area. On 05/02/2019 he underwent tracheostomy and direct microlaryngoscopy with biopsy of laryngeal biopsy and biopsy of pretracheal lymph node. Pathology on the right alicia-larynx biopsy showed invasive squamous cell carcinoma. A single pretracheal lymph node was negative for malignancy. He was seen by Dr. Banks on 05/11/2019 for consideration of radiation therapy. He underwent pet imaging on 05/06/2019. He was found to have a right supraglottic mass that extended to the right true vocal cord with an SUV of 22.7. He had bilateral jugulodigastric nodes that were too small to characterize. He was deemed unsuitable for concurrent high-dose cisplatin chemotherapy with radiation therapy due to his chronic renal insufficiency, peripheral neuropathy and other comorbid conditions. As such, he was given weekly carboplatin along with capecitabine daily on the days of radiation. He underwent right subclavian Mediport placement per Dr. Peres on 06/16/2019 [place] [facility] [place] also had dental extractions. His past medical history includes colon cancer in 2011 at which time he was treated with what sounds like FOLFOX. His reports that one of his chemo was taken away because of cold sensitivity and numbness and tingling in his fingers. He was able to continue with the pump . He reported that he tolerated that well other than the side effects from the oxaliplatin and he had no nausea or excessive diarrhea at that time. He began combined chemoradiation with weekly carboplatin/daily Xeloda on the day of radiation therapy on 06/20/2019. His treatment was complicated by neutropenia and diarrhea, necessitating treatment delays. In all he received 4 infusions of carboplatin at weekly dosing from 06/20/2019 through 08/04/2019. Xeloda was put on hold as of 07/18/2019. He completed his radiation therapy on 08/09/2019. Follow-up CT scan of neck done on 09/21/2019 showed significant soft tissue thickening and edema in the glottic and supraglottic region. There was continued asymmetric thickening of the true and false vocal cord region. No discrete enhancing mass was seen. The changes appeared to be posttreatment related. There were no enlarging lymph nodes. Scattered ill-defined opacifications in the right upper lobe were felt to be probably related to pneumonitis. Repeat CT scan in 3 months was recommended. During follow-up he developed increasing neck pain, severe enough to require opiate pain medication. He then developed increasing mucus production. On 11/19/2019 he was admitted to the hospital. His sputum culture from 11/15/2019 grew pseudomonas aeruginosa. He was discharged home on antibiotic coverage with ciprofloxacin. On 11/25/2019 he was seen by Dr. Taveras as an outpatient. He had recommended further antibiotic therapy with nebulized tobramycin. [facility] and [facility] is still [facility]. In the meantime, a restaging PET/CT on 11/26/2019 showed evidence of progression of the primary glottic carcinoma with abnormal activity in the right true vocal cord and in bilateral arytenoid and subglottic territories, maximum SUV 21.8. There was new activity at the tracheostomy site, SUV 19.0, possibly representing infection, but malignant implant was not excluded. A new 1.6 cm solid nodule in the posterior lingula had SUV 7.9, consistent with metastatic disease. Mildly FDG positive left paratracheal lymph nodes appeared reactive, but with micrometastatic disease not excluded. Came for follow-up, complaining of fullness in the neck but no dysphagia or shortness of breath still having a lot of thick, yellowish secretions from tracheostomy but no fever or chills no nausea or vomiting. Tolerating nutrition through G-tube well. Patient is also having problem with traveling to [facility]. Now requesting local ENT physician tracheostomy tube management and evaluation.Tolerating IV cefepime well but having lot of inconvenience with every 12 hours schedule Medications: Acetaminophen 2 Tablet (of 650/3 mg/mL) Solution Oral q 4 hours PRN, Albuterol Sulfate HFA 2 puff(s) (of 108 (90 base) mcg/act) Aerosol, solution Inhalation four times a day PRN, Apixaban 1 Tablet (of 5 mg) Oral b.i.d., Budesonide-Formoterol Fumarate 2 puff(s) (of 160-4.5 mcg/act) Aerosol Inhalation b.i.d., Cartia XT 1 Capsule (of 120 mg) Capsule SR 24 HR Oral b.i.d., Floranex 1 Tablet Oral b.i.d., Hydrogen Peroxide (3 %) Miscellaneous Topical Take as Directed, Ipratropium-Albuterol 3 mL (of 0.5-2.5 (3) mg/3mL) Solution Inhalation four times a day, Lidocaine Viscous HCl Solution Mouth/throat PRN, Morphine Sulfate (10 mg/5mL) Solution Oral b.i.d. PRN, Mucinex Fast-Max Congest Cough 5 mL Liquid Oral b.i.d. PRN, Multivitamin Iron-Free 1 Tablet Oral daily, Pravastatin Sodium 1 Tablet (of 40 mg) Oral daily, raNITIdine HCl 1 Tablet (of 150 mg) Oral daily, Sennosides-Docusate Sodium 1 Tablet (of 8.6-50 mg) Oral b.i.d., Sodium Chloride (0.9 %) Aerosol, solution Inhalation Take as Directed, Spironolactone 1 Tablet (of 50 mg) Oral daily, Sterile Water for Irrigation Solution Irrigation Take as Directed, THROAT SPRAY Liquid PRN, Torsemide 5 Tablet (of 10 mg) Oral daily PRN Allergies: No Known Allergies. Review of Systems: Constitutional - His energy level is poor. Positive for weight loss. No fever, chills or hot flashes reported today, ENMT - No sinus congestion/drainage. Positive for sore throat, Hematologic/Lymphatic - He bruises easily, Respiratory - He has shortness of breath and cough. No pleuritic pain or hemoptysis, Cardiovascular - No angina pain. He has atrial fibrillation, Gastrointestinal - No nausea or vomiting. His heartburn is adequately controlled with Zantac. No diarrhea or constipation. No blood in the stool or black stools, Genitourinary (M) - No dysuria or hematuria. No urinary frequency. No urgency or incontinence, Musculoskeletal - He also has pain in his hips and back, Neurologic - No headache or dizziness. He has numbness and tingling in his fingers, Psychiatric - No anxiety or depression. He has difficulty sleeping. Vital Signs: Performed on Nov 30, 2019 08:12 Height - 71.00 in Weight - 244.4 lbs (HIGH) BSA - 2.30 sq.m BMI - 34.09 (HIGH) Temperature - 98.3 F (LOW) Pulse - 88 /min Respiration - 20 /min BP - 99/67 mm(hg) O2 Sat - 94 % (LOW) Pain - 3 Performance Status: 2 - Ambulatory/capable of all self-care, unable to perform any work activities. Up and about more than 50% of waking hours. (ECOG) Physical Examination: ENMT - denies mouth sores, Neck - tracheostomy site with yellowish secretions, Respiratory - denies shortness of breath or wheezing, Cardiovascular - denies palpitation, Abdomen - G-tube site is clean, no abdominal pain, Extremities - 1+ edema bilaterally. Lab/Imaging: Test performed on Nov 18, 2019 12:30 Sodium 151 mmol/L Potassium 3.8 mmol/L Chloride 105 mmol/L CO2 32 mmol/L Anion Gap 17.8 BUN 42 mg/dL Creatinine 1.1 mg/dL Cr Clearance (Est) 102.9300 mL/min eGFR 66.6 mL/min Glucose 119 mg/dL Calcium 9.0 mg/dL Protein, Total 6.5 g/dL Albumin 3.1 g/dL Globulin 3.4 g/dL Bilirubin, Total 0.3 mg/dL ALT (SGPT) 197 U/L AST (SGOT) 42 U/L Alkaline Phosphatase 119 IU/L WBC 9.9 10 3/uL RBC 4.26 10 6/uL HGB 13.1 g/dL HCT 44.7 % MCV 104.9 fL MCH 30.8 pg MCHC 29.3 g/dL RDW 13.4 % Platelet Count 233 10 3/cmm MPV 11.7 fL Neutrophils 8.5 10 3/uL Lymphocytes 0.4 10 3/uL Monocytes 0.6 10 3/uL Eosinophils 0.2 10 3/uL Basophils 0.0 10 3/uL Neutrophil % 85.5 % Lymphocyte % 4.3 % Monocyte % 6.0 % Eosinophil % 2.4 % Basophils % 0.2 % Test performed on Aug 04, 2019 09:10 Manual Segs % 64 % Manual Bands % 33.0 % Manual Lymphs % 2.0 % Manual Monos % 1.0 % CBC Slide Review SLIDE REVIEW PERFORM Polychromasia TRACE Poikilocytosis 1+ Ovalocytes 1+ Platelet Estimate NORMAL Platelets, Giant TRACE Manual Neutrophils Abs 34.5 10 3/cmm Manual Lymphocytes Abs 0.7 10 3/cmm Manual Monocytes Abs 0.4 10 3/cmm Test performed on Aug 01, 2019 08:59 Manual Eos % 2 % Metamyelocytes % 3.0 % Myelocytes % 2.0 % Anisocytosis 1+ Macrocytosis 1+ Manual Eosinophils Abs 0.0 10 3/cmm Impression: 1. 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 By PET/CT there was involvement in the right true vocal cord. Bilateral level 4 jugulodigastric lymph nodes are too small to characterized. 2. He was treated with radiation, currently with carboplatin/cape, as he was deemed ineligible for high-dose cisplatin chemotherapy. 3. His treatment was complicated by neutropenia and diarrhea, necessitating treatment delays and reductions. He completed radiation on 08/09/2020. 4. On 11/19/2019 is admitted to the hospital with increasing neck pain and mucus production. Sputum culture had grown pseudomonas aeruginosa. Despite outpatient antibiotic therapy, his symptoms have continued to worsen. 5. Following consultation with Dr. Taveras on 11/25/2019 [facility], but that apparently still in process. 6. In the meantime, his restaging PET/CT shows evidence of local progression of the glottic carcinoma and a suspected metastatic lesion in the lingula. Uptake at the tracheostomy site appeared consistent with infectious process, though malignant implant was not excluded. Overall, it appears likely that he is showing local disease recurrence/progression and there is likely now pulmonary metastatic involvement. His symptoms, though, appear to be associated with acute tracheitis to the Pseudomonas. Plan: Discussed with patient regarding his CT PET scan findings again patient has severe infection involving tracheostomy site culture shows Pseudomonas aeruginosa sensitive to cefepime and Zosyn. Now being treated with cefepime every 12 hours but his calculated GFR is around 60, as per pharmacy cefepime dose should be adjusted to every 24 hours. Patient is also having issues with transportation and also concerned about Monge virus in that case we will discuss with home visiting nurse to see IV antibiotic can be arranged at home. Plan is to give him cefepime for 2 weeks, and also refer him to local ENT for evaluation and once infection is resolved we'll consider CT scan of neck and compared with CT PET scan if it shows persistent abnormality then will consider biopsy to confirm persistent disease on the other hand if it shows resolution then will monitor. In the meantime we'll follow with tumor PDL 1 status . Signed By: Duglas Charles M.D. <<Signature on File>>
[2019-12-01] MEDS: cefepime 2,000 MG in sodium chloride 0.9% (plus) 50 ML 100 MG IV (14:20)
[2019-12-02] MEDS: sodium chloride 0.9% 100 ML (11:30)
[2019-12-02] MEDS: cefepime 2,000 MG in sodium chloride 0.9% (plus) 50 ML 100 MG IV (11:30)
== END 2019-12-02 23:59 | disposition home or self-care (01) ==
LOC: ONCMED 09:53
PROVIDERS: Visit Provider Nurse Practitioner
DX: J95.02 Infection of tracheostomy stoma (principal); B96.5 Pseudomonas (aeruginosa) (mallei) (pseudomallei) as the cause of diseases classified elsewhere; C32.1 Malignant neoplasm of supraglottis; R91.8 Other nonspecific abnormal finding of lung field; Z92.3 Personal history of irradiation; Z95.828 Presence of other vascular implants and grafts; Z79.2 Long term (current) use of antibiotics
CPT/HCPCS: 96365; 99214; J0692

== ENCOUNTER 2019-12-04 12:08 | Emergency (ER) | payer OTHER, SELFPAY ==
[2019-12-04] VITALS (8 sets, daily range): BP systolic 82–119; BP diastolic 56–85; PULSE 88–132; RESP 18–24; TEMP 37.1–37.3; O2SAT 92–100; BMI 33.7
--- NOTE | 2019-12-04 12:23 | XRR_ITS ---
PROCEDURE INFORMATION: Exam: XR Chest, 1 View Exam date and time: 12/04/2019 12:25 PM Age: 69 years old Clinical indication: Prior surgery; Surgery date: 6+ months; Patient HX: HX of supraglottic CA and trach with wheezing and low BP; Additional info: Fever TECHNIQUE: Imaging protocol: XR of the chest Views: Frontal portable upright view of the chest. COMPARISON: CR XR chest 1V portable [id number] 11/25/2019 3:10 PM FINDINGS: Lungs: Stable right basilar pulmonary subsegmental atelectasis. Mild left lateral basilar subsegmental atelectasis. The lungs are otherwise peripherally clear bilaterally. The pulmonary vasculature is normal. Pleural space: No pleural effusion. No pneumothorax. Heart/Mediastinum: Stable borderline cardiomegaly. The heart is normal in size and contour. Mediastinum: Stable. Vasculature: The right subclavian venous portacatheter tip is in the lower SVC. Mild aortic arch atherosclerotic calcification without ectasia. Bones/joints: Stable. XR/XR chest 1V portable [id number] IMPRESSION: 1. Stable right basilar pulmonary subsegmental atelectasis. 2. Mild left lateral basilar subsegmental atelectasis.
--- NOTE | 2019-12-04 12:29 | ED_ITS ---
HPI - SOB/Dyspnea General: Chief Complaint: Shortness of Breath/Dyspnea Stated Complaint: low bp/sob Time Seen by Provider: 12/04/19 12:23 Source: patient Mode of arrival: ambulatory Limitations: no limitations History of Present Illness: HPI Narrative: 69-year-old male has a history of cancer in his has a tracheostomy. Patient placed on IV antibiotics by his oncologist 4 days ago for tracheitis. He has been getting IV antibiotics daily. Patient seen here today by his home health nurse as his blood pressure was in the 90s and his temperature is 99. Patient's blood pressure is normal at this time. He states he has had thicker secretions out of his tracheostomy and has had difficulty suctioning up. He denies any weakness. Denies any vomiting or diarrhea. MD elicited complaint: shortness of breath Associated symptoms: Reports fever(s); Deny abdominal pain, chest pain, nausea or vomiting Review of Systems Const: Reports: fever Eyes: Denies: blurry vision or eye discomfort ENMT: Denies: throat pain or dental pain Card: Denies: chest pain Resp: Denies: shortness of breath GI: Denies: abdominal pain, nausea, vomiting or diarrhea : Denies: painful urination Musc: Denies: neck pain or back pain Skin/Breast: Denies: rash Neuro: Denies: headache Psych: Denies: depression Nilson/Lymph: Denies: easy bruising All/Imm: Denies: hives PFSH ED PFSH: Medical History Atrial fibrillation CKD (chronic kidney disease) 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 Colon cancer adjuvant chemo/FOLFOX and resection in past COPD (chronic obstructive pulmonary disease) Hyperlipidemia Hypertension Neuropathy post chemotherapy for colon cancer Obstructive sleep apnea Has not used CPAP since he got tracheostomy Squamous cell carcinoma of supraglottis Surgical History History of colon resection History of tonsillectomy History of ventral hernia repair mesh Port-A-Cath in place Ja 06/[address] Uses feeding tube Family History Mother Cancer breast Dementia Hypertension Diabetes Brother Diabetes Sister Diabetes Social History Smoking and tobacco status: former smoker Quit status (tobacco): has quit using tobacco Year quit tobacco: 2007 - >0.5PPD x 30 Years Alcohol intake: never Lives independently: Yes Household members: spouse Marital status: Current occupational status: disabled History of recent travel: No Current gender identity: Male Physical Exam Const: COMMON NORMALS: no apparent distress, oriented x3 and healthy appearing HENMT: COMMON NORMALS: normocephalic and head/scalp atraumatic HEAD & SCALP: normocephalic and atraumatic Eye: COMMON NORMALS: PERRL and EOMs intact bilaterally PUPIL: Yes PERRL Neck/C-Spine: COMMON NORMALS: full ROM and supple Chest: COMMONS NORMALS: inspection of chest normal and palpation of chest normal Resp: COMMON NORMALS: normal respiratory effort, no retractions, no use of accessory muscles and clear to auscultation bilaterally AUSCULTATION: clear to auscultation bilaterally Cardio: COMMON NORMALS: regular rate, regular rhythm and no murmurs RATE: regular rate RHYTHM: regular rhythm GI: COMMON NORMALS: normal to inspection, nondistended, normoactive bowel sounds, soft to palpation, non-tender and no masses PALPATION: Yes soft Extremity: COMMON NORMALS: normal to inspection and full ROM Neuro: COMMON NORMALS: oriented x3, moves all extremities and no focal motor deficits Psych: COMMON NORMALS: mental status grossly normal, thought process normal and cooperative THOUGHT PROCESS: normal thought process Skin: COMMON NORMALS: no rashes or lesions noted and no wounds GENERAL SKIN EXAM: no rashes or lesions noted Course Vital Signs: Vital signs: Vital Signs Temperature 98.7 F 12/04/19 14:59 Pulse Rate 91 12/04/19 14:59 Respiratory Rate 20 H 12/04/19 14:59 Blood Pressure 119/85 12/04/19 14:59 Pulse Oximetry 100 12/04/19 14:59 MDM - SOB/Dyspnea MDM Narrative: Medical decision making narrative: Patient presents here with low-grade fever and low blood pressure at home likely from his tracheitis. Patient's blood pressures been normal and lactate and white count are normal. Did suction his trachea and he is to continue his IV antibiotics. Patient is to follow-up with his primary care doctor in 2 to 4 days and return to the ER if worsening. Lab Data: Labs: Lab Results 12/04/19 12/04/19 12/04/19 Range/Units 12:42 12:42 12:42 WBC 6.3 (4.0-10.0) 10^3/ uL RBC 3.91 L (4.1-5.3) 10^6/u L Hgb 11.6 L (11.7-16.6) g/dL Hct 38.0 L (42.0-52.0) % MCV 97.2 H (80-94) fL MCH 29.7 (28.0-34.0) pg MCHC 30.5 (30.0-36.0) g/dL RDW 13.7 (12.1-15.1) % Plt Count 503 H (130-400) 10^3/c mm MPV 8.7 (7.4-10.4) fL Neut % (Auto) 74.8 % Lymph % (Auto) 7.6 % [place] % (Auto) 14.0 % Eos % (Auto) 2.5 % Baso % (Auto) 0.3 % Neut # (Auto) 4.7 (1.8-7.7) 10^3/u L Lymph # (Auto) 0.5 L (0.8-4.8) 10^3/u L [place] # (Auto) 0.9 (0.2-0.9) 10^3/u L Eos # (Auto) 0.2 (0.0-0.8) 10^3/u L Baso # (Auto) 0.0 (0.0-0.1) 10^3/u L Nucleated RBC % (a uto) 0 % Nucleated RBCs # 0.0 /100WBC Sodium 133 L (136-145) mmol/L Potassium 5.6 H (3.5-5.1) mmol/L Chloride 91 L (98-107) mmol/L Carbon Dioxide 33 H (22-29) mmol/L Anion Gap 14.6 (5-19) BUN 23 (8-23) mg/dL Creatinine 1.0 (0.7-1.2) mg/dL GFR Calculation 74.3 L (90-130) mL/min Glucose 89 (65-115) mg/dL Calculated Osmolal ity 272 L (285-295) mOsm/k g Lactate 1.1 (0.5-2.2) mmol/L Calcium 9.4 (8.5-10.5) mg/dL Total Bilirubin 0.3 (0.15-1.2) mg/dL AST 35 (0-40) U/L ALT 49 H (0-41) U/L Alkaline Phosphata se 139 H (40-130) IU/L Total Protein 6.6 (6.6-8.7) g/dL Albumin 3.3 L (3.5-5.2) g/dL Globulin 3.3 (1.3-4.6) g/dL Discharge Plan Discharge Patient Disposition: Home, Self-Care Clinical Impression: Tracheitis Condition: Stable Prescriptions: No Action ipratropium-albuterol 0.5 mg-3 mg(2.5 mg base)/3 mL solution for nebulization 3 ml INHALATION QID Qty: 360 RF: 3 budesonide [Pulmicort] 0.5 mg/2 mL suspension for nebulization 0.25 mg INHALATION BID Qty: 120 RF: 3 tobramycin 300 mg/4 mL solution for nebulization 300 mg INHALATION Q12H 14 Days Qty: 112 RF: 0 torsemide 10 mg Tablet 50 mg PO DAILY RF: 0 Hold Instructions: Resume on 12/15/19. until seen by primary care Lidocaine Viscous 2 % Solution See Rx Instructions .ROUTE .COMPLEX PRN (Reason: unknown) RF: 0 albuterol sulfate 90 mcg/actuation Hfa Aerosol Inhaler 2 puff INHALATION QID PRN (Reason: Shortness Of Breath) RF: 0 spironolactone 50 mg Tablet 50 mg PO DAILY RF: 0 Throat [place] 1.4 % Aerosol,[place] See Rx Instructions .ROUTE .COMPLEX RF: 0 Mucinex Liquid 5 ml PO BID PRN (Reason: unknown) RF: 0 morphine 10 mg/5 mL Solution See Rx Instructions .ROUTE .COMPLEX RF: 0 apixaban 5 mg Tablet 5 mg PO BID RF: 0 pravastatin 40 mg Tablet 40 mg PO DAILY RF: 0 ranitidine HCl 150 mg Tablet 150 mg PO DAILY RF: 0 sennosides-docusate sodium 8.6-50 mg Tablet 1 tab PO BID PRN (Reason: Constipation) Qty: 30 RF: 0 Lactobacillus acidoph-L.bulgar [Floranex] 1 million cell Tablet 1 tab peg-tube BID Qty: 14 RF: 0 acetaminophen 650 mg/20.3 mL Solution 650 mg PO Q4H PRN (Reason: Mild Pain Or Increase Temp) Qty: 300 RF: 0 diltiazem HCl 30 mg tablet 30 mg PO Q6H RF: 0 clonazepam [Klonopin] 0.5 mg tablet 0.5 mg PO Q12H Qty: 30 RF: 0 metoprolol tartrate 25 mg Tablet 25 mg PO BID RF: 0 Discharge Orders: Discharge Order (Routine); Ordered 12/04/19 Ordered By: Norma Malcolm Discharge Diet: Advance as tolerated Discharge Activity: Resume usual activity Patient Instructions: Tracheostomy Care (ED) Discharge Date/Time: 12/04/19 14:48 Coding Level of Care Code ED Front Office Assistant for Bernadine Fwd Exam Comprehensive
[2019-12-04 12:54] LABS: Basophils % 0.3 %; Eosinophils # 0.2 10^3/uL (0.0-0.8); Eosinophils % 2.5 %; Hemoglobin 11.6 g/dL (11.7-16.6); Lymphocytes # 0.5 10^3/uL (0.8-4.8); Lymphocytes % 7.6 %; Mean Corpuscular HGB Conc 30.5 g/dL (30.0-36.0); Mean Corpuscular Hemoglobin 29.7 pg (28.0-34.0); Mean Corpuscular Volume 97.2 fL (80-94); Mean Platelet Volume 8.7 fL (7.4-10.4); Monocytes # 0.9 10^3/uL (0.2-0.9); Neutrophils # 4.7 10^3/uL (1.8-7.7); Neutrophils % 74.8 %; Nucleated Red Blood Cells % 0 %; Platelet Count 503 10^3/cmm (130-400); Red Blood Count 3.91 10^6/uL (4.1-5.3); Red Cell Distribution Width 13.7 % (12.1-15.1); White Blood Count 6.3 10^3/uL (4.0-10.0)
[2019-12-04] MEDS: sodium chloride 0.9% 1,000 ML 999 ML IV (13:02)
[2019-12-04 13:07] LABS: Alanine Aminotransferase 49 U/L (0-41); Albumin Level 3.3 g/dL (3.5-5.2); Alkaline Phosphatase 139 IU/L (40-130); Anion Gap 14.6 (5-19); Aspartate Amino Transferase 35 U/L (0-40); Blood Urea Nitrogen 23 mg/dL (8-23); Calcium 9.4 mg/dL (8.5-10.5); Carbon Dioxide 33 mmol/L (22-29); Chloride 91 mmol/L (98-107); Globulin 3.3 g/dL (1.3-4.6); Glomerular Filtration Rate 74.3 mL/min (90-130); Glucose 89 mg/dL (65-115); Osmolality Calculated 272 mOsm/kg (285-295); Potassium 5.6 mmol/L (3.5-5.1); Sodium 133 mmol/L (136-145); Total Bilirubin 0.3 mg/dL (0.15-1.2); Total Protein 6.6 g/dL (6.6-8.7)
[2019-12-04 13:08] LABS: Lactate (Lactic Acid level) 1.1 mmol/L (0.5-2.2)
[2019-12-04] MEDS: acetaminophen 325 mg Tablet 650 MG PO (13:29)
== END 2019-12-04 14:48 | disposition home or self-care (01) ==
PROVIDERS: Emergency Provider Emergency Medicine
DX: J04.10 Acute tracheitis without obstruction (principal); I48.91 Unspecified atrial fibrillation; Z85.038 Personal history of other malignant neoplasm of large intestine; J44.9 Chronic obstructive pulmonary disease, unspecified; E78.5 Hyperlipidemia, unspecified; I10 Essential (primary) hypertension; G47.33 Obstructive sleep apnea (adult) (pediatric); Z85.21 Personal history of malignant neoplasm of larynx; Z87.891 Personal history of nicotine dependence
CPT/HCPCS: 12345; 36415; 71045; 80053; 83605; 85025; 94640; 96360; 99283; 99284; J7030; J7611

== ENCOUNTER 2019-12-05 11:34 | Emergency (ER) | payer OTHER, SELFPAY ==
[2019-12-05 11:39] VITALS: BP 105/69; PULSE 97; RESP 22; TEMP 37.1; O2SAT 93; BMI 33.3
--- NOTE | 2019-12-05 11:46 | CT_ITS ---
WS: [id number] CT NECK TECHNIQUE: Contrast-enhanced CT of the neck with coronal and sagittal reformatted images. CLINICAL INFORMATION: swelling COMPARISON: PET CT November 26, 2019, CT neck 09/21 19, PET/CT May 14, 2019, CT neck April 12, 2019 DLP: 983.[address] scans at [facility] use at least one of these dose optimization techniques: automat ed exposure control; mA and/or kV adjustment per patient size (includes targeted exams where dose is matched to clinical indication); or iterative reconstruction. FINDINGS: History of primary glottic carcinoma recently progressed on the prior PET/CT. Prior postoperative eliezer nges tracheostomy. Diffuse induration and submucosal edema throughout the soft tissues of the neck co nsistent with radiation therapy changes. Diffuse soft tissue thickening involving the supraglottic and glottic larynx. Diffuse soft tissue thi ckening involving the epiglottis. Soft tissue thickening involving the true and false vocal cords and subglottic larynx. Findings are unchanged since the recent PET/CT. Normal posterior nasopharynx. Normal parapharyngeal fat. Soft tissue thickening along the tracheostom y site is unchanged. No drainable abscess. Lung apices appear well aerated. Prominent mediastinal lym ph nodes partially visualized. CT/CT neck w con* [id number] IMPRESSION: 1. No significant interval changes since the recent PET/CT November 26, 2019. 2. Tracheostomy is in place. No evidence of drainable abscess or fluid collect ion. 3. Glottic carcinoma with diffuse thickening of the supraglottic airway, epigl ottis, true and false vocal cords and glottis. Appearance unchanged since November 26, 2019 4. Diffuse subcutaneous edema in the neck consistent with radiation therapy ch anges. No drainable fluid collections.
--- NOTE | 2019-12-05 11:50 | W.ED.GENADLT ---
HPI - General Adult General: Chief complaint: General Medical Stated complaint: THROAT SWOLLEN Time Seen by Provider: 12/05/19 11:39 Source: patient Mode of arrival: ambulatory Limitations: no limitations History of Present Illness: HPI narrative: 69-year-old male who has a history of a tracheostomy and has tracheitis and is currently getting IV antibiotics daily at home. Patient sent up here today because he had increased swelling of his neck. Patient seen yesterday and had a fever at home but had normal white count and lactate. Patient states that his neck keep swelling and home health coming back up here. He denies any difficulty breathing. Patient is in no distress currently Associated symptoms: Deny chest pain, dyspnea, headache(s), nausea, rash or vomiting Review of Systems Const: Denies: fever, chills, body aches or change in appetite Eyes: Denies: blurry vision or eye discomfort ENMT: Denies: throat pain or dental pain Card: Denies: chest pain Resp: Denies: shortness of breath GI: Denies: abdominal pain, nausea, vomiting or diarrhea : Denies: painful urination Musc: Denies: neck pain or back pain Skin/Breast: Denies: rash Neuro: Denies: headache Psych: Denies: depression Nilson/Lymph: Denies: easy bruising All/Imm: Denies: hives PFSH ED PFSH: Social History Smoking and tobacco status: former smoker Quit status (tobacco): has quit using tobacco Year quit tobacco: 2007 - >0.5PPD x 30 Years Alcohol intake: never Lives independently: Yes Household members: spouse Marital status: Current occupational status: disabled History of recent travel: No Current gender identity: Male Physical Exam Const: COMMON NORMALS: no apparent distress, oriented x3 and healthy appearing HENMT: COMMON NORMALS: normocephalic and head/scalp atraumatic HEAD & SCALP: normocephalic and atraumatic OTHER: Tracheostomy in place with slight swelling around his neck. Eye: COMMON NORMALS: PERRL and EOMs intact bilaterally PUPIL: Yes PERRL Neck/C-Spine: COMMON NORMALS: full ROM and supple Chest: COMMONS NORMALS: inspection of chest normal and palpation of chest normal Resp: COMMON NORMALS: normal respiratory effort, no retractions, no use of accessory muscles and clear to auscultation bilaterally AUSCULTATION: clear to auscultation bilaterally Cardio: COMMON NORMALS: regular rate, regular rhythm and no murmurs RATE: regular rate RHYTHM: regular rhythm GI: COMMON NORMALS: normal to inspection, nondistended, normoactive bowel sounds, soft to palpation, non-tender and no masses PALPATION: Yes soft Extremity: COMMON NORMALS: normal to inspection and full ROM Neuro: COMMON NORMALS: oriented x3, moves all extremities and no focal motor deficits Psych: COMMON NORMALS: mental status grossly normal, thought process normal and cooperative THOUGHT PROCESS: normal thought process Skin: COMMON NORMALS: no rashes or lesions noted and no wounds GENERAL SKIN EXAM: no rashes or lesions noted Course Vital Signs: Vital signs: Vital Signs Temperature 98.7 F 12/05/19 11:39 Pulse Rate 102 H 12/05/19 17:29 Respiratory Rate 18 12/05/19 17:29 Blood Pressure 110/79 12/05/19 17:29 Pulse Oximetry 93 12/05/19 17:29 MDM - General Adult MDM Narrative: Medical decision making narrative: Patient presents here with tracheitis along with some neck swelling. I spoke to his oncologist who wanted him to see ENT and be admitted. Do not have a ENT call here. I spoke to ENT at [facility] where patient is established to had his tracheostomy placed. Patient accepted there and will transfer there. Patient has been stable while here. Lab Data: Labs: Lab Results 12/05/19 12/05/19 Range/Units 12:39 12:56 WBC 7.0 (4.0-10.0) 10^3/ uL RBC 3.73 L (4.1-5.3) 10^6/u L Hgb 11.2 L (11.7-16.6) g/dL Hct 36.6 L (42.0-52.0) % MCV 98.1 H (80-94) fL MCH 30.0 (28.0-34.0) pg MCHC 30.6 (30.0-36.0) g/dL RDW 14.1 (12.1-15.1) % Plt Count 467 H (130-400) 10^3/c mm MPV 10.4 (7.4-10.4) fL Neut % (Auto) 75.8 % Lymph % (Auto) 6.4 % [place] % (Auto) 14.7 % Eos % (Auto) 2.1 % Baso % (Auto) 0.3 % Neut # (Auto) 5.3 (1.8-7.7) 10^3/u L Lymph # (Auto) 0.5 L (0.8-4.8) 10^3/u L [place] # (Auto) 1.0 H (0.2-0.9) 10^3/u L Eos # (Auto) 0.2 (0.0-0.8) 10^3/u L Baso # (Auto) 0.0 (0.0-0.1) 10^3/u L Nucleated RBC % (a uto) 0 % Nucleated RBCs # 0.0 /100WBC Sodium 132 L (136-145) mmol/L Potassium 5.3 H (3.5-5.1) mmol/L Chloride 92 L (98-107) mmol/L Carbon Dioxide 30 H (22-29) mmol/L Anion Gap 15.3 (5-19) BUN 19 (8-23) mg/dL Creatinine 0.8 (0.7-1.2) mg/dL GFR Calculation 96.1 (90-130) mL/min Glucose 131 H (65-115) mg/dL Calculated Osmolal ity 272 L (285-295) mOsm/k g Calcium 9.1 (8.5-10.5) mg/dL Total Bilirubin 0.2 (0.15-1.2) mg/dL AST 32 (0-40) U/L ALT 42 H (0-41) U/L Alkaline Phosphata se 136 H (40-130) IU/L Total Protein 6.8 (6.6-8.7) g/dL Albumin 3.2 L (3.5-5.2) g/dL Globulin 3.6 (1.3-4.6) g/dL Imaging Data^: ct neck: Radiologist's impression: [address] [address] [address] Scan Report Signed Patient: Edgar Thomas Unit #: [id number] : 1950 Age/Sex: 69 / M ADM Date: 12/05/19 Loc: ER Room/Bed: Attending Dr: Ordering Provider/Ordering MD: Norma Malcolm MD Date of Service: 12/05/19 Procedure(s): CT neck w con* [id number] Accession Number(s): [id number] Report Number: [id number] WS: [id number] CT NECK TECHNIQUE: Contrast-enhanced CT of the neck with coronal and sagittal reformatted images. CLINICAL INFORMATION: swelling COMPARISON: PET CT November 26, 2019, CT neck 09/21 19, PET/CT May 14, 2019, CT neck April 12, 2019 DLP: 983.[address] scans at [facility] use at least one of these dose optimization techniques: automated exposure control; mA and/or kV adjustment per patient size (includes targeted exams where dose is matched to clinical indication); or iterative reconstruction. FINDINGS: History of primary glottic carcinoma recently progressed on the prior PET/CT. Prior postoperative changes tracheostomy. Diffuse induration and submucosal edema throughout the soft tissues of the neck consistent with radiation therapy changes. Diffuse soft tissue thickening involving the supraglottic and glottic larynx. Diffuse soft tissue thickening involving the epiglottis. Soft tissue thickening involving the true and false vocal cords and subglottic larynx. Findings are unchanged since the recent PET/CT. Normal posterior nasopharynx. Normal parapharyngeal fat. Soft tissue thickening along the tracheostomy site is unchanged. No drainable abscess. Lung apices appear well aerated. Prominent mediastinal lymph nodes partially visualized. CT/CT neck w con* [id number] IMPRESSION: 1. No significant interval changes since the recent PET/CT November 26, 2019. 2. Tracheostomy is in place. No evidence of drainable abscess or fluid collection. 3. Glottic carcinoma with diffuse thickening of the supraglottic airway, epiglottis, true and false vocal cords and glottis. Appearance unchanged since November 26, 2019 4. Diffuse subcutaneous edema in the neck consistent with radiation therapy changes. No drainable fluid collections. Discharge Plan Discharge Patient Disposition: Xfer Other Coding Level of Care Code ED Endband Cutter Hand for Chg Fwd Exam Comprehensive
[2019-12-05] MEDS: iohexol 300 mg/mL 100 mL Btl IV (12:19)
[2019-12-05 12:22] VITALS: RESP 17
[2019-12-05] MEDS: sodium chloride 0.9% 500 ML IV (12:24)
[2019-12-05 12:51] LABS: Basophils % 0.3 %; Eosinophils # 0.2 10^3/uL (0.0-0.8); Eosinophils % 2.1 %; Hematocrit 36.6 % (42.0-52.0); Hemoglobin 11.2 g/dL (11.7-16.6); Lymphocytes # 0.5 10^3/uL (0.8-4.8); Lymphocytes % 6.4 %; Mean Corpuscular HGB Conc 30.6 g/dL (30.0-36.0); Mean Corpuscular Volume 98.1 fL (80-94); Mean Platelet Volume 10.4 fL (7.4-10.4); Monocytes % 14.7 %; Neutrophils # 5.3 10^3/uL (1.8-7.7); Neutrophils % 75.8 %; Nucleated Red Blood Cells % 0 %; Platelet Count 467 10^3/cmm (130-400); Red Blood Count 3.73 10^6/uL (4.1-5.3); Red Cell Distribution Width 14.1 % (12.1-15.1)
[2019-12-05 13:20] LABS: Alanine Aminotransferase 42 U/L (0-41); Albumin Level 3.2 g/dL (3.5-5.2); Alkaline Phosphatase 136 IU/L (40-130); Anion Gap 15.3 (5-19); Aspartate Amino Transferase 32 U/L (0-40); Blood Urea Nitrogen 19 mg/dL (8-23); Calcium 9.1 mg/dL (8.5-10.5); Carbon Dioxide 30 mmol/L (22-29); Chloride 92 mmol/L (98-107); Globulin 3.6 g/dL (1.3-4.6); Glomerular Filtration Rate 96.1 mL/min (90-130); Glucose 131 mg/dL (65-115); Osmolality Calculated 272 mOsm/kg (285-295); Potassium 5.3 mmol/L (3.5-5.1); Sodium 132 mmol/L (136-145); Total Bilirubin 0.2 mg/dL (0.15-1.2); Total Protein 6.8 g/dL (6.6-8.7)
[2019-12-05 13:35] VITALS: BP 107/67; PULSE 71; O2SAT 93
--- NOTE | 2019-12-05 15:24 | PC.NURSE ---
respiratory in room to suction pt's tracheostomy
[2019-12-05 15:33] VITALS: BP 114/79; PULSE 90; O2SAT 94
[2019-12-05 16:49] VITALS: BP 101/75; PULSE 112; O2SAT 94
[2019-12-05 17:29] VITALS: BP 110/79; PULSE 102; RESP 18; O2SAT 93
== END 2019-12-05 18:00 | disposition other institution (70) ==
PROVIDERS: Emergency Provider Emergency Medicine
DX: J04.10 Acute tracheitis without obstruction (principal); R60.9 Edema, unspecified; Z87.891 Personal history of nicotine dependence
CPT/HCPCS: 12345; 36591; 70491; 80053; 85025; 96360; 96361; 99283; 99285; J7040; Q9967

== ENCOUNTER 2020-01-11 07:04 | Outpatient (RCR) | payer OTHER, SELFPAY ==
[2019-12-27 15:27] LABS: Basophils % 0.5 %; Eosinophils # 0.2 10^3/uL (0.0-0.8); Eosinophils % 2.7 %; Hematocrit 38.5 % (42.0-52.0); Hemoglobin 11.5 g/dL (11.7-16.6); Lymphocytes # 0.5 10^3/uL (0.8-4.8); Lymphocytes % 6.3 %; Mean Corpuscular HGB Conc 29.9 g/dL (30.0-36.0); Mean Corpuscular Hemoglobin 29.2 pg (28.0-34.0); Mean Corpuscular Volume 97.7 fL (80-94); Mean Platelet Volume 8.9 fL (7.4-10.4); Monocytes % 11.3 %; Neutrophils # 6.7 10^3/uL (1.8-7.7); Neutrophils % 78.8 %; Nucleated Red Blood Cells % 0 %; Platelet Count 603 10^3/cmm (130-400); Red Blood Count 3.94 10^6/uL (4.1-5.3); Red Cell Distribution Width 14.6 % (12.1-15.1); White Blood Count 8.5 10^3/uL (4.0-10.0)
[2019-12-27 15:51] LABS: Alanine Aminotransferase 106 U/L (0-41); Albumin Level 3.4 g/dL (3.5-5.2); Alkaline Phosphatase 152 IU/L (40-130); Anion Gap 17.4 (5-19); Aspartate Amino Transferase 52 U/L (0-40); Blood Urea Nitrogen 31 mg/dL (8-23); Carbon Dioxide 34 mmol/L (22-29); Chloride 91 mmol/L (98-107); Glomerular Filtration Rate 74.3 mL/min (90-130); Glucose 91 mg/dL (65-115); Osmolality Calculated 283 mOsm/kg (285-295); Potassium 4.4 mmol/L (3.5-5.1); Sodium 138 mmol/L (136-145); Total Bilirubin 0.3 mg/dL (0.15-1.2); Total Protein 7.4 g/dL (6.6-8.7)
[2020-01-10] MEDS: sodium chloride 0.9% 1,000 ML 999 ML IV (10:18)
--- NOTE | 2020-01-11 18:24 | ONC FU_ITS ---
Dr. 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 He presented with right ear pain about 4 months duration and a sore throat for 1 to 2 months. He had no dysphagia, choking, or difficulty breathing. A CT of the neck and chest showed a tumor in the right supraglottic area. On 05/02/2019 he underwent tracheostomy and direct microlaryngoscopy with biopsy of laryngeal biopsy and biopsy of pretracheal lymph node. Pathology on the right alicia-larynx biopsy showed invasive squamous cell carcinoma. A single pretracheal lymph node was negative for malignancy. He was seen by Dr. Bnaks on 05/11/2019 for consideration of radiation therapy. He underwent pet imaging on 05/06/2019. He was found to have a right supraglottic mass that extended to the right true vocal cord with an SUV of 22.7. He had bilateral jugulodigastric nodes that were too small to characterize. He was deemed unsuitable for concurrent high-dose cisplatin chemotherapy with radiation therapy due to his chronic renal insufficiency, peripheral neuropathy and other comorbid conditions. As such, he was given weekly carboplatin along with capecitabine daily on the days of radiation. He underwent right subclavian Mediport placement per Dr. Peres on 06/16/2019 at [facility]. He also had dental extractions. His past medical history includes colon cancer in 2011 at which time he was treated with what sounds like FOLFOX. His reports that one of his chemo was taken away because of cold sensitivity and numbness and tingling in his fingers. He was able to continue with the pump . He reported that he tolerated that well other than the side effects from the oxaliplatin and he had no nausea or excessive diarrhea at that time. He began combined chemoradiation with weekly carboplatin/daily Xeloda on the day of radiation therapy on 06/20/2019. His treatment was complicated by neutropenia and diarrhea, necessitating treatment delays. In all he received 4 infusions of carboplatin at weekly dosing from 06/20/2019 through 08/04/2019. Xeloda was put on hold as of 07/18/2019. He completed his radiation therapy on 08/09/2019. Follow-up CT scan of neck done on 09/21/2019 showed significant soft tissue thickening and edema in the glottic and supraglottic region. There was continued asymmetric thickening of the true and false vocal cord region. No discrete enhancing mass was seen. The changes appeared to be posttreatment related. There were no enlarging lymph nodes. Scattered ill-defined opacifications in the right upper lobe were felt to be probably related to pneumonitis. Repeat CT scan in 3 months was recommended. During follow-up he developed increasing neck pain, severe enough to require opiate pain medication. He then developed increasing mucus production. On 11/19/2019 he was admitted to the hospital. His sputum culture from 11/15/2019 grew pseudomonas aeruginosa. He was discharged home on antibiotic coverage with ciprofloxacin. On 11/25/2019 he was seen by Dr. Taveras as an outpatient. He had recommended further antibiotic therapy with nebulized tobramycin. That request was put through to the [place], and it apparently is still in process. In the meantime, a restaging PET/CT on 11/26/2019 showed evidence of progression of the primary glottic carcinoma with abnormal activity in the right true vocal cord and in bilateral arytenoid and subglottic territories, maximum SUV 21.8. There was new activity at the tracheostomy site, SUV 19.0, possibly representing infection, but malignant implant was not excluded. A new 1.6 cm solid nodule in the posterior lingula had SUV 7.9, consistent with metastatic disease. Mildly FDG positive left paratracheal lymph nodes appeared reactive, but with micrometastatic disease not excluded. Because of progressive neck swelling and excessive discharge from tracheostomy site, patient was sent to emergency room for evaluation for where patient was transferred to [facility] a very underwent CT scan of neck on 12/06/2019 which shows there is diffuse abnormal appearance of hypopharynx and larynx characterize by is masslike thickening and asymmetry involving all the subsites of hypopharynx and larynx. Patient was diagnosed with Pseudomonas infection and treated with ceftazidime and ENT was consulted and CT scan of chest done there at that time also showed 2.2 x 1.7 cm irregular soft tissue nodule in the lingula, for which he underwent FNA left lung lingula on 12/21/2019 and pathology report confirmed positive for squamous cell carcinoma but pathologist could not determine if that represents metastatic disease from at her neck cancer or new lung primary. And no biopsy was obtained from head and neck abnormality seen on CT scan of neck done on 12/06/2019. Came for follow-up, complaining of discomfort in his neck but no hemoptysis or hematemesis, no fever or chills, no nausea or vomiting, using G-tube efficiently. Medications: Acetaminophen 2 Tablet (of 650/3 mg/mL) Solution Oral q 4 hours PRN, Albuterol Sulfate HFA 2 puff(s) (of 108 (90 base) mcg/act) Aerosol, solution Inhalation four times a day PRN, Apixaban 1 Tablet (of 5 mg) Oral b.i.d., Budesonide-Formoterol Fumarate 2 puff(s) (of 160-4.5 mcg/act) Aerosol Inhalation b.i.d., Cartia XT 1 Capsule (of 120 mg) Capsule SR 24 HR Oral b.i.d., Famotidine 1 Tablet (of 20 mg) Oral b.i.d., Hydrogen Peroxide (3 %) Miscellaneous Topical Take as Directed, Ipratropium-Albuterol 3 mL (of 0.5-2.5 (3) mg/3mL) Solution Inhalation four times a day, Lidocaine Viscous HCl Solution Mouth/throat PRN, Morphine Sulfate (10 mg/5mL) Solution Oral four times a day PRN, Mucinex Fast-Max Congest Cough 5 mL Liquid Oral b.i.d. PRN, Pravastatin Sodium 1 Tablet (of 40 mg) Oral daily, Sennosides-Docusate Sodium 1 Tablet (of 8.6-50 mg) Oral b.i.d. PRN, Sodium Chloride (0.9 %) Aerosol, solution Inhalation Take as Directed, Spironolactone 1 Tablet (of 50 mg) Oral daily, Sterile Water for Irrigation Solution Irrigation Take as Directed, THROAT SPRAY Liquid PRN, Tobramycin 1 (300 mg/5mL) Nebulization solution Inhalation b.i.d., Torsemide 3 Tablet (of 10 mg) Oral daily PRN Allergies: No Known Allergies. Review of Systems: Constitutional - His energy level is poor. Weight is stable. No fever, chills or hot flashes reported today, ENMT - No sinus congestion/drainage. Positive for sore throat and neck pain. Pt has trach, Hematologic/Lymphatic - He bruises easily, Respiratory - He has shortness of breath and cough. No pleuritic pain or hemoptysis, Cardiovascular - No angina pain. He has atrial fibrillation, Gastrointestinal - No nausea or vomiting. Positive for heartburn/acid reflux. No diarrhea or constipation. No blood in the stool or black stools, Genitourinary (M) - No dysuria or hematuria. No urinary frequency. No urgency or incontinence, Musculoskeletal - Positive for neck pain, Neurologic - No headache or dizziness. He has numbness and tingling in his fingers, Psychiatric - No anxiety or depression. He has difficulty sleeping. Vital Signs: Vitals are not available for this patient. Performance Status: 2 - Ambulatory/capable of all self-care, unable to perform any work activities. Up and about more than 50% of waking hours. (ECOG) Physical Examination: ENMT - tracheostomy site with mild discharge but no bleeding, Respiratory - Lungs are clear, Cardiovascular - irregular rhythm, Abdomen - soft, bowel sounds present, G-tube site clean, Extremities - no visible edema. Lab/Imaging: Test performed on December 27, 2019 13:35 Sodium 138 mmol/L Potassium 4.4 mmol/L Chloride 91 mmol/L CO2 34 mmol/L Anion Gap 17.4 BUN 31 mg/dL Creatinine 1.0 mg/dL Cr Clearance (Est) 110.8600 mL/min eGFR 74.3 mL/min Glucose 91 mg/dL Calcium 10.0 mg/dL Protein, Total 7.4 g/dL Albumin 3.4 g/dL Globulin 4.0 g/dL Bilirubin, Total 0.3 mg/dL ALT (SGPT) 106 U/L AST (SGOT) 52 U/L Alkaline Phosphatase 152 IU/L WBC 8.5 10 3/uL RBC 3.94 10 6/uL HGB 11.5 g/dL HCT 38.5 % MCV 97.7 fL MCH 29.2 pg MCHC 29.9 g/dL RDW 14.6 % Platelet Count 603 10 3/cmm MPV 8.9 fL Neutrophils 6.7 10 3/uL Lymphocytes 0.5 10 3/uL Monocytes 1.0 10 3/uL Eosinophils 0.2 10 3/uL Basophils 0.0 10 3/uL Neutrophil % 78.8 % Lymphocyte % 6.3 % Monocyte % 11.3 % Eosinophil % 2.7 % Basophils % 0.5 % Test performed on Aug 04, 2019 09:10 Manual Segs % 64 % Manual Bands % 33.0 % Manual Lymphs % 2.0 % Manual Monos % 1.0 % CBC Slide Review SLIDE REVIEW PERFORM Polychromasia TRACE Poikilocytosis 1+ Ovalocytes 1+ Platelet Estimate NORMAL Platelets, Giant TRACE Manual Neutrophils Abs 34.5 10 3/cmm Manual Lymphocytes Abs 0.7 10 3/cmm Manual Monocytes Abs 0.4 10 3/cmm Test performed on Aug 01, 2019 08:59 Manual Eos % 2 % Metamyelocytes % 3.0 % Myelocytes % 2.0 % Anisocytosis 1+ Macrocytosis 1+ Manual Eosinophils Abs 0.0 10 3/cmm Impression: 1. 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 By PET/CT there was involvement in the right true vocal cord. Bilateral level 4 jugulodigastric lymph nodes are too small to characterized. 2. He was treated with radiation, currently with carboplatin/cape, as he was deemed ineligible for high-dose cisplatin chemotherapy. 3. His treatment was complicated by neutropenia and diarrhea, necessitating treatment delays and reductions. He completed radiation on 08/09/2020. 4. On 11/19/2019 is admitted to the hospital with increasing neck pain and mucus production. Sputum culture had grown pseudomonas aeruginosa. Despite outpatient antibiotic therapy, his symptoms have continued to worsen. 5. Following consultation with Dr. Taveras on 11/25/2019 [facility], but that apparently still in process. 6. In the meantime, his restaging PET/CT shows evidence of local progression of the glottic carcinoma and a suspected metastatic lesion in the lingula. Uptake at the tracheostomy site appeared consistent with infectious process, though malignant implant was not excluded.FNAbiopsy was done 12/21/2019which confirmed squamous cell carcinoma, primary lung cancer versus metastatic disease Overall, it appears likely that he is showing local disease recurrence/progression and there is likely now pulmonary metastatic involvement. His symptoms, though, appear to be associated with acute tracheitis to the Pseudomonas. Plan: Discussed with patient regarding his left lung biopsy which showed squamous cell carcinoma but pathologist could not confirm whether its a primary lung cancer or metastatic disease from head and neck cancer. Discussed with patient regarding treatment options, it is important to confirm whether he has head and neck cancer recurrence, as his CT PET scan done in November then CT scan of neck done in [facility] in [place] confirmed abnormality in hypopharyngeal area, which could be due to chronic Pseudomonas infection which was treated earlier head at [facility] and now again at [facility]. As if there is recurrence of head and neck cancer in that case we'll consider immunotherapy with Keytruda as his lung biopsy confirmed PDL 1 positive disease. On the other hand if there is a no evidence of head and neck cancer recurrence, in that case we will refer him to radiation oncology for SB RT to the lung lesion and then observe. And also discussed with patient regarding the role of hospice care, patient will discuss with his family. Patient doesn't want to go to [place] as with his current condition, it is hard for him to travel that far, in that case we will discuss with Dr. Mock , local ENT to evaluate him and obtain biopsy from the hypopharyngeal area to rule out local recurrence. And tracheostomy management. Signed By: Duglas Charles M.D. <<Signature on File>>
== END 2020-01-15 23:59 | disposition home or self-care (01) ==
LOC: ONCMED 07:04
PROVIDERS: Visit Provider Internal Medicine Hematology & Oncology
DX: C32.1 Malignant neoplasm of supraglottis (principal); J04.10 Acute tracheitis without obstruction; I10 Essential (primary) hypertension
CPT/HCPCS: 36415; 80053; 85025; 87070; 87077; 87186; 87205; 96360; 99214; J7030

== ENCOUNTER 2020-01-12 15:10 | Emergency (ER) | payer OTHER, SELFPAY ==
--- NOTE | 2020-01-12 15:15 | XR_ITS ---
WS: [id number] PORTABLE CHEST HISTORY: sob COMPARISON: 12/04/2019 Chemotherapy port with tip terminating in the distal SVC. Unchanged since the prior study. Slight elevation of the RIGHT hemidiaphragm. No pneumonia. LEFT lower lobe pulmonary nodule described on recent PET/CT is not visualized radiographically. No pleural effusion or pneumothorax. Cardiac size: Normal. Mediastinum/Aorta: Mild atherosclerosis aorta. No osseous abnormality seen. XR/XR chest 1V portable [id number] IMPRESSION: 1. No pneumonia. Stable chest. 2. Recently described PET/CT positive nodule in the LEFT lower lobe is not def initely visualized radiographically.
[2020-01-12 15:52] VITALS: BP 105/73; PULSE 106; RESP 20; TEMP 37.4; O2SAT 94; BMI 34.5
[2020-01-12 16:45] LABS: Basophils % 0.3 %; Eosinophils # 0.1 10^3/uL (0.0-0.8); Eosinophils % 0.8 %; Hematocrit 39.4 % (42.0-52.0); Hemoglobin 11.9 g/dL (11.7-16.6); Lymphocytes # 0.4 10^3/uL (0.8-4.8); Lymphocytes % 3.9 %; Mean Corpuscular HGB Conc 30.2 g/dL (30.0-36.0); Mean Corpuscular Hemoglobin 28.4 pg (28.0-34.0); Mean Platelet Volume 8.5 fL (7.4-10.4); Monocytes # 1.1 10^3/uL (0.2-0.9); Monocytes % 9.5 %; Neutrophils # 9.5 10^3/uL (1.8-7.7); Neutrophils % 84.7 %; Nucleated Red Blood Cells % 0 %; Platelet Count 605 10^3/cmm (130-400); Red Blood Count 4.19 10^6/uL (4.1-5.3); Red Cell Distribution Width 14.9 % (12.1-15.1); White Blood Count 11.2 10^3/uL (4.0-10.0)
[2020-01-12 17:02] LABS: Alanine Aminotransferase 40 U/L (0-41); Albumin Level 3.5 g/dL (3.5-5.2); Alkaline Phosphatase 148 IU/L (40-130); Anion Gap 15.6 (5-19); Aspartate Amino Transferase 24 U/L (0-40); Blood Urea Nitrogen 25 mg/dL (8-23); Calcium 10.5 mg/dL (8.5-10.5); Carbon Dioxide 32 mmol/L (22-29); Chloride 89 mmol/L (98-107); Globulin 3.7 g/dL (1.3-4.6); Glomerular Filtration Rate 96.1 mL/min (90-130); Glucose 118 mg/dL (65-115); Osmolality Calculated 270 mOsm/kg (285-295); Potassium 5.6 mmol/L (3.5-5.1); Sodium 131 mmol/L (136-145); Total Bilirubin 0.3 mg/dL (0.15-1.2); Total Protein 7.2 g/dL (6.6-8.7)
[2020-01-12 17:04] LABS: Troponin(5th) Baseline 49 ng/mL (0-15)
--- NOTE | 2020-01-12 17:16 | ECG_ITS ---
Measurements Intervals [place] Rate: 96 P: AR: 0 QRS: -88 QRSD: 142 T: 29 QT: 352 QTc: 446 ATRIAL FIBRILLATION RIGHT BUNDLE BRANCH BLOCK [120+ ms QRS DURATION, UPRIGHT V1, 40+ ms S IN I/aVL/V4/V5/V6] LEFT ANTERIOR FASCICULAR BLOCK [QRS AXIS <= -45, QR IN I, RS IN II] Compared to ECG 11/19/2019 18:59:57 Ventricular premature complex(es) no longer present Aberrant conduction of supraventricular beat(s) no longer present Electronically Signed On 01-13-2020 19:00:46 CDT by Dinah Hutson M.D. [email or web address]
[2020-01-12 18:55] LABS: Troponin 5 2HR 48.77 ng/mL (0-15)
[2020-01-12 19:21] LABS: Troponin 5 2HR Delta -0.23 ABS# (0-10)
[2020-01-12 19:52] VITALS: RESP 18
[2020-01-12] MEDS: morphine 4 mg/mL SDV 1 mL IVP (19:52)
[2020-01-12] MEDS: ondansetron 2 mg/ML SDV 2 mL 4 MG IVP (20:00)
--- NOTE | 2020-01-12 20:34 | PM.CONSULT ---
Providers/Reason For Consult Consulting Physican/Specialty*: Erik Mock MD Otolaryngology, Head & Neck Surgery Reason for Consult*: Displaced tracheotomy Tube History of Present Illness History of Present Illness Edgar Thomas is a 69 year old male who underwent tracheotomy in the fall of 2018. I was consulted to replace a dislodged trach tube. The patient is having difficulty with mucous production and reports that the trach 'felt different' tonight. Dr. Scott consulted me to replace/reposition his trach tube. Review of Systems General: Reports: 10 or more systems reviewed and unremarkable except in HPI and below Meds/Allergies Home Medications and Allergies Home Medications Medication Instructions Recorded Confirmed Last Taken Type apixaban 5 mg PO BID 11/11/19 12/28/19 12/05/19 History pravastatin 40 mg PO DAILY 11/11/19 12/28/19 12/04/19 History ranitidine HCl 150 mg PO DAILY 11/11/19 12/28/19 12/05/19 History Lactobacillus acidoph-L.bulgar 1 tab PEG-TUBE BID #14 tab 11/15/19 12/28/19 12/04/19 Rx [Floranex] acetaminophen 650 mg PO Q4H PRN #300 ml 11/15/19 12/28/19 12/04/19 Rx Lidocaine Viscous See Rx Instructions .ROUTE 11/19/19 12/28/19 12/04/19 History .COMPLEX PRN Mucinex Liquid 5 ml PO QID PRN 11/19/19 12/28/19 12/04/19 History Throat [place] See Rx Instructions .ROUTE .COMPLEX 11/19/19 12/28/19 Unknown History albuterol sulfate 2 puff INHALATION QID PRN 11/19/19 12/28/19 12/04/19 History spironolactone 50 mg PO DAILY 11/19/19 12/28/19 12/05/19 History torsemide 50 mg PO DAILY 11/19/19 12/28/19 12/05/19 History budesonide 0.5 mg/2 mL suspension 0.25 mg INHALATION BID #120 ml 11/24/19 12/28/19 12/04/19 Rx for nebulization diltiazem HCl 30 mg PO Q6H 11/24/19 12/28/19 12/05/19 History ipratropium 0.5 mg-albuterol 3 mg 3 ml INHALATION QID #360 ml 11/24/19 12/28/19 12/04/19 Rx (2.5 mg base)/3 mL nebulization soln clonazepam [Klonopin] 0.5 mg PO Q12H #30 tab 11/25/19 12/28/19 12/04/19 Rx metoprolol tartrate 25 mg PO BID 12/04/19 12/28/19 12/04/19 History Nutren 2.0 See Rx Instructions .ROUTE .COMPLEX 12/05/19 12/28/19 Unknown History cefepime 2 g IV Q24H 12/05/19 12/05/19 12/05/19 09:00 History potassium chloride 10 meq PO DAILY 12/05/19 12/28/19 Unknown History prochlorperazine maleate 10 mg PO Q4H PRN 12/05/19 12/28/19 Unknown History Allergies Allergy/AdvReac Type Severity Reaction Status Date / Time No Known Allergies Allergy Verified 12/28/19 13:31 PFSH Acute PFSH: Medical History Atrial fibrillation CKD (chronic kidney disease) 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 Colon cancer adjuvant chemo/FOLFOX and resection in past COPD (chronic obstructive pulmonary disease) Hyperlipidemia Hypertension Neuropathy post chemotherapy for colon cancer Obstructive sleep apnea Has not used CPAP since he got tracheostomy Squamous cell carcinoma of supraglottis Surgical History History of colon resection History of tonsillectomy History of ventral hernia repair mesh Port-A-Cath in place Ja 06/[address] Uses feeding tube Family History Mother Cancer breast Dementia Hypertension Diabetes Brother Diabetes Sister Diabetes Social History Smoking and tobacco status: never smoked Quit status (tobacco): has quit using tobacco Year quit tobacco: 2007 - >0.5PPD x 30 Years Alcohol intake: never Lives independently: Yes Household members: spouse Marital status: Current occupational status: disabled History of recent travel: No Current gender identity: Male Vitals/I&O/Wt Last Vital Signs Temp 99.4 F 01/12/20 15:52 Pulse 106 H 01/12/20 15:52 Resp 18 01/12/20 19:52 BP 105/73 01/12/20 15:52 Pulse Ox 94 01/12/20 15:52 Weight last 48 hrs Weight 112.491 kg Physical Exam Const: COMMON NORMALS: no acute distress, average body habitus and patient oriented x3 HENMT: COMMON NORMALS: normocephalic, atraumatic, external ears normal and Normal external nose present HEAD & SCALP: normocephalic and atraumatic NOSE: Normal external nose present EXTERNAL EAR: Yes external ears normal MOUTH: Normal oral and palatal mucosa present Eye: COMMON NORMALS: EOMs intact bilaterally and conjunctivae normal CONJUNCTIVA: Yes conjunctivae normal Neck/C-Spine: OTHER: The tracheotomy tube is partially extruded. There is significant mucous surrounding the trach. There is fullness of the neck, but there are no palpable masses of the neck, although the exam is difficult. Neuro: COMMON NORMALS: patient oriented x3 A&P Additional A&P Information Impression/Plan: - Tracheotomy tube displacement: the trach tube was replaced and the trach collar was tightened; the patient and his were instructed in trach care; the patient is to use humification by trach collar continuously at home and is to use his his home suction and humidification units as instructed; the patient is to f/u with me in my office tomorrow Consult Attestations Medical Necessity Statement: I was consulted by Dr. Scott to address the patient's trach displacement Procedures Procedure Narrative Procedure: verbal informed consent was obtained from the patient; the trach was advanced into the trachea without difficulty; a flexible fiberoptic nasopharyngolaryngoscope was advanced through the tracheotomy tube into the airway which was found to be dry, but patent; the fiberoptic scope was removed and there were no complications. Coding Level of Care Code Acute Knockout Machine Operator for Bernadine Adamson
--- NOTE | 2020-01-12 20:37 | W.ED.GENADLT ---
HPI - General Adult General: Chief complaint: General Medical Stated complaint: sputum leaking around trach, rib pain Time Seen by Provider: 01/12/20 17:07 History of Present Illness: HPI narrative: Patient is a 69-year-old male presenting today with problems with his tracheostomy. He has history of throat cancer and had a tracheostomy put in in April. He has been coughing a lot over the last few days and has had very thick mucus coming from around the trach as well as through the trach. He thinks that he is coughed so hard that the trach is coming out. He is also having pain in his left side from coughing so much. He is not really having any difficulty breathing. He is scheduled to see Dr. Mock in the morning for a follow-up appointment. Onset (ago): day(s) (2) Location: neck Associated symptoms: Reports chest pain (Left ribs from coughing) and dyspnea; Deny headache(s), malaise, nausea, rash or vomiting Review of Systems General: Reports: 10 or more systems reviewed and unremarkable except in HPI and below Const: Denies: fever(s), chills, fatigue or malaise Eyes: Denies: change in vision ENMT: Reports: odynophagia (Has tracheostomy and PEG tube does not take anything by mouth.) Card: Reports: chest pain (Left ribs from coughing); Denies: swelling of feet/ankles Resp: Reports: dyspnea and productive cough; Denies: non-productive cough GI: Denies: abdominal pain, nausea or vomiting : Denies: flank pain Musc: Denies: neck pain or back pain Skin/Breast: Denies: rash Neuro: Denies: headache(s), numbness in extremities or weakness in extremities [place]/Lymph: Denies: easy bruising or easy bleeding PFSH ED PFSH: Medical History Atrial fibrillation CKD (chronic kidney disease) 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 Colon cancer adjuvant chemo/FOLFOX and resection in past COPD (chronic obstructive pulmonary disease) Hyperlipidemia Hypertension Neuropathy post chemotherapy for colon cancer Obstructive sleep apnea Has not used CPAP since he got tracheostomy Squamous cell carcinoma of supraglottis Surgical History History of colon resection History of tonsillectomy History of ventral hernia repair mesh Port-A-Cath in place Ja 06/[address] Uses feeding tube Family History Mother Cancer breast Dementia Hypertension Diabetes Brother Diabetes Sister Diabetes Social History Smoking and tobacco status: never smoked Quit status (tobacco): has quit using tobacco Year quit tobacco: 2007 - >0.5PPD x 30 Years Alcohol intake: never Lives independently: Yes Household members: spouse Marital status: Current occupational status: disabled History of recent travel: No Current gender identity: Male Physical Exam Const: COMMON NORMALS: no acute distress, patient oriented x3, no limitations and alert GENERAL APPEARANCE: cooperative and comfortable HENMT: HEAD & SCALP: normal to inspection FACE & SINUS: normal facial exam Eye: GENERAL EYE: appearance normal, both eyes and all related structures Neck/C-Spine: COMMON NORMALS: supple, no meningeal signs and no JVD GENERAL: Yes other (Patient has a tracheostomy tube that is protruding a couple of centimeters away from his neck. He has copious amounts of relatively clear thick sputum coming from around the area. ) Chest: COMMONS NORMALS: normal inspection of the chest Resp: COMMON NORMALS: normal respiratory effort, No use of accessory muscles and clear to auscultation bilaterally AUSCULTATION: clear to auscultation bilaterally Cardio: COMMON NORMALS: no JVD, regular rate, regular rhythm and No murmurs present (Cardio) RATE: regular rate RHYTHM: regular rhythm GI: COMMON NORMALS: Normal to inspection, nondistended, normoactive bowel sounds present, Soft to palpation and non-tender INSPECTION: Yes normal to inspection AUSCULTATION: Yes normoactive bowel sounds PALPATION: Yes Soft to palpation Back/Pelvis: COMMON NORMALS: thoracic and lumbar spine normal to inspection Extremity: COMMON NORMALS: normal to inspection Neuro: COMMON NORMALS: patient oriented x3, moves all extremities, no focal motor deficits and no sensory deficits noted SENSORIUM/ORIENTATION: Yes alert MENINGEAL SIGNS: Yes no meningeal signs Psych: COMMON NORMALS: mental status grossly normal, cooperative and normal affect Skin: COMMON NORMALS: no rashes or lesions noted and turgor normal GENERAL SKIN EXAM: no rashes or lesions noted and turgor normal Course ED course: Patient's labs and chest x-ray are fairly unremarkable. His potassium was slightly elevated at 5.6. He saw Dr. Mock in the ED. Dr. Mock came in to change the trach. He said he is okay to go home and he will see him in the office tomorrow as scheduled. Vital Signs: Vital signs: Vital Signs Temperature 99.4 F 01/12/20 15:52 Pulse Rate 106 H 01/12/20 15:52 Respiratory Rate 18 01/12/20 19:52 Blood Pressure 105/73 01/12/20 15:52 Pulse Oximetry 94 01/12/20 15:52 [facility] - General Adult Lab Data: Labs: Lab Results 01/12/20 01/12/20 01/12/20 Range/Units 16:24 16:24 16:24 WBC 11.2 H (4.0-10.0) 10^3/ uL RBC 4.19 (4.1-5.3) 10^6/u L Hgb 11.9 (11.7-16.6) g/dL Hct 39.4 L (42.0-52.0) % MCV 94.0 (80-94) fL MCH 28.4 (28.0-34.0) pg MCHC 30.2 (30.0-36.0) g/dL RDW 14.9 (12.1-15.1) % Plt Count 605 H (130-400) 10^3/c mm MPV 8.5 (7.4-10.4) fL Neut % (Auto) 84.7 % Lymph % (Auto) 3.9 % [place] % (Auto) 9.5 % Eos % (Auto) 0.8 % Baso % (Auto) 0.3 % Neut # (Auto) 9.5 H (1.8-7.7) 10^3/u L Lymph # (Auto) 0.4 L (0.8-4.8) 10^3/u L [place] # (Auto) 1.1 H (0.2-0.9) 10^3/u L Eos # (Auto) 0.1 (0.0-0.8) 10^3/u L Baso # (Auto) 0.0 (0.0-0.1) 10^3/u L Nucleated RBC % (a uto) 0 % Nucleated RBCs # 0.0 /100WBC Sodium 131 L (136-145) mmol/L Potassium 5.6 H (3.5-5.1) mmol/L Chloride 89 L (98-107) mmol/L Carbon Dioxide 32 H (22-29) mmol/L Anion Gap 15.6 (5-19) BUN 25 H (8-23) mg/dL Creatinine 0.8 (0.7-1.2) mg/dL GFR Calculation 96.1 (90-130) mL/min Glucose 118 H (65-115) mg/dL Calculated Osmolal ity 270 L (285-295) mOsm/k g Calcium 10.5 (8.5-10.5) mg/dL Total Bilirubin 0.3 (0.15-1.2) mg/dL AST 24 (0-40) U/L ALT 40 (0-41) U/L Alkaline Phosphata se 148 H (40-130) IU/L Troponin T Baselin e 49 H (0-15) ng/mL Troponin T 120 Min [place] (0-15) ng/mL Delta Troponin T (0-10) ABS# Total Protein 7.2 (6.6-8.7) g/dL Albumin 3.5 (3.5-5.2) g/dL Globulin 3.7 (1.3-4.6) g/dL 05/28/20 Range/Units 18:27 WBC (4.0-10.0) 10^3/ uL RBC (4.1-5.3) 10^6/u L Hgb (11.7-16.6) g/dL Hct (42.0-52.0) % MCV (80-94) fL MCH (28.0-34.0) pg MCHC (30.0-36.0) g/dL RDW (12.1-15.1) % Plt Count (130-400) 10^3/c mm MPV (7.4-10.4) fL Neut % (Auto) % Lymph % (Auto) % [place] % (Auto) % Eos % (Auto) % Baso % (Auto) % Neut # (Auto) (1.8-7.7) 10^3/u L Lymph # (Auto) (0.8-4.8) 10^3/u L [place] # (Auto) (0.2-0.9) 10^3/u L Eos # (Auto) (0.0-0.8) 10^3/u L Baso # (Auto) (0.0-0.1) 10^3/u L Nucleated RBC % (a uto) % Nucleated RBCs # /100WBC Sodium (136-145) mmol/L Potassium (3.5-5.1) mmol/L Chloride (98-107) mmol/L Carbon Dioxide (22-29) mmol/L Anion Gap (5-19) BUN (8-23) mg/dL Creatinine (0.7-1.2) mg/dL GFR Calculation (90-130) mL/min Glucose (65-115) mg/dL Calculated Osmolal ity (285-295) mOsm/k g Calcium (8.5-10.5) mg/dL Total Bilirubin (0.15-1.2) mg/dL AST (0-40) U/L ALT (0-41) U/L Alkaline Phosphata se (40-130) IU/L Troponin T Baselin e (0-15) ng/mL Troponin T 120 Min [place] 48.77 H (0-15) ng/mL Delta Troponin T -0.23 L (0-10) ABS# Total Protein (6.6-8.7) g/dL Albumin (3.5-5.2) g/dL Globulin (1.3-4.6) g/dL Discharge Plan Discharge Patient Disposition: Home, Self-Care Clinical Impression: Tracheostomy in place Condition: Stable Prescriptions: No Action ipratropium-albuterol 0.5 mg-3 mg(2.5 mg base)/3 mL solution for nebulization 3 ml INHALATION QID Qty: 360 RF: 3 budesonide [Pulmicort] 0.5 mg/2 mL suspension for nebulization 0.25 mg INHALATION BID Qty: 120 RF: 3 torsemide 10 mg Tablet 50 mg PO DAILY RF: 0 Hold Instructions: Resume on 12/15/19. until seen by primary care Lidocaine Viscous 2 % Solution See Rx Instructions .ROUTE .COMPLEX PRN (Reason: unknown) RF: 0 albuterol sulfate 90 mcg/actuation Hfa Aerosol Inhaler 2 puff INHALATION QID PRN (Reason: Shortness Of Breath) RF: 0 spironolactone 50 mg Tablet 50 mg PO DAILY RF: 0 Throat [place] 1.4 % Aerosol,[place] See Rx Instructions .ROUTE .COMPLEX RF: 0 Mucinex Liquid 5 ml PO QID PRN (Reason: unknown) RF: 0 apixaban 5 mg Tablet 5 mg PO BID RF: 0 pravastatin 40 mg Tablet 40 mg PO DAILY RF: 0 ranitidine HCl 150 mg Tablet 150 mg PO DAILY RF: 0 Lactobacillus acidoph-L.bulgar [Floranex] 1 million cell Tablet 1 tab peg-tube BID Qty: 14 RF: 0 acetaminophen 650 mg/20.3 mL Solution 650 mg PO Q4H PRN (Reason: Mild Pain Or Increase Temp) Qty: 300 RF: 0 diltiazem HCl 30 mg tablet 30 mg PO Q6H RF: 0 clonazepam [Klonopin] 0.5 mg tablet 0.5 mg PO Q12H Qty: 30 RF: 0 metoprolol tartrate 25 mg Tablet 25 mg PO BID RF: 0 cefepime 2 gram Recon Soln 2 g IV Q24H RF: 0 potassium chloride 10 mEq Tablet Extended Release 10 meq PO DAILY RF: 0 prochlorperazine maleate 10 mg tablet 10 mg PO Q4H PRN (Reason: Nausea) RF: 0 Nutren 2.0 See Rx Instructions .ROUTE .COMPLEX RF: 0 Discharge Orders: Discharge Order (Routine); Ordered 01/12/20 Ordered By: Radha Scott Discharge Diet: Usual diet Discharge Activity: Resume usual activity Activity Restrictions/Additional Instructions: Follow up with Dr. Mock tomorrow as planned. Coding Level of Care Code ED Photographer Motion Picture for Bernadine Adamson
[2020-01-12 21:22] VITALS: BP 111/80; PULSE 110; RESP 20; O2SAT 93
== END 2020-01-12 21:26 | disposition home or self-care (01) ==
PROVIDERS: Emergency Medicine; Emergency Provider Emergency Medicine
DX: J95.09 Other tracheostomy complication (principal); I48.91 Unspecified atrial fibrillation; Z85.038 Personal history of other malignant neoplasm of large intestine; J44.9 Chronic obstructive pulmonary disease, unspecified; E78.5 Hyperlipidemia, unspecified; I10 Essential (primary) hypertension; Z87.891 Personal history of nicotine dependence
CPT/HCPCS: 12345; 36415; 71045; 80053; 84484; 85025; 93005; 96374; 96375; 99282; 99283; J2270; J2405

== ENCOUNTER 2020-01-25 11:19 | Inpatient (IN) | payer OTHER, MEDICARE, SELFPAY ==
[2020-01-25] VITALS (19 sets, daily range): BP systolic 91–164; BP diastolic 60–106; PULSE 81–115; RESP 13–31; TEMP 36.7–37.3; O2SAT 90–98
--- NOTE | 2020-01-25 11:50 | ECG_ITS ---
Measurements Intervals [place] Rate: 98 P: NC: 0 QRS: 269 QRSD: 151 T: 60 QT: 355 QTc: 454 ATRIAL FIBRILLATION RIGHT AXIS DEVIATION [QRS AXIS > 100] RIGHT BUNDLE BRANCH BLOCK [120+ ms QRS DURATION, UPRIGHT V1, 40+ ms S IN I/aVL/V4/V5/V6] POSSIBLE SEPTAL MYOCARDIAL INFARCTION , PROBABLY OLD [30 ms Q WAVE IN V1/V2] Compared to ECG 01/12/2020 17:36:41 Right-axis deviation now present Myocardial infarct finding now present Left anterior fascicular block no longer present Electronically Signed On 01-25-2020 15:55:45 CDT by Stuart Pratt M.D. [id number]
--- NOTE | 2020-01-25 11:51 | CT_ITS ---
WS: [id number] CT ABDOMEN AND PELVIS WITH CONTRAST HISTORY: Abdominal pain and weakness. TECHNIQUE: Imaging performed of the abdomen and pelvis with IV contrast. Single phase imaging of the abdomen. Coronal and sagittal reformats are submitted. All CT scans at [facility] use at least one of these dose optimization techniques: automated exposure control; mA and/or kV adjustment per patient size (includes targeted exams where dose is matched to clinical indication); or iterativ e reconstruction. IV CONTRAST: Omnipaque 300; 95 mL IV. Oral contrast: No DLP: 1841.52 mGy.cm COMPARISON: None available. Lower thorax: Dependent changes and atelectasis at the lung bases. Nodule at the lingula measures 2.0 cm. This nodule was noted to be PET/CT positive on 11/26/2019. Enlarged heart. No hiatal hernia. Liver/biliary system: Normal size with no intrahepatic dilatation. Gallbladder: Contracted gallbladder. No adjacent inflammation. Pancreas: Normal. Spleen: Normal. Adrenal glands: Normal. Right kidney: Numerous cysts throughout the RIGHT kidney. The largest measures 4.3 cm. No solid mass or obstruction. Left kidney: Numerous cysts with the largest measuring 4.7 cm. No solid mass or obstruction. Aorta: Mild atherosclerosis. Lymphadenopathy: None. Free fluid: None. GI tract: PEG tube is present in the stomach. No GI tract obstruction. There is increased fecal mater ial with fluid throughout the colon, greatest in the RIGHT colon. No evidence for appendicitis. Anast omotic suture in the distal sigmoid is intact with no adjacent soft tissue mass or adenopathy. Abdominal wall: Unremarkable abdominal wall. No hernia. Pelvis: No free fluid or adenopathy in the pelvis. Prostate gland is very slightly enlarged. Normally distended urinary bladder. Bones: Slight increase in lumbar lordosis. No fractures, osteoblastic or osteolytic disease. CT/CT abdomen pelvis w con* [id number] IMPRESSION: 1. Moderate constipation. 2. Bilateral renal cysts with no obstruction. 3. Lingular PET/CT positive nodule measures 2.0 cm. 4. Cardiomegaly. 5. PEG tube remains in good position.
--- NOTE | 2020-01-25 11:54 | W.ED.GENADLT ---
HPI - General Adult General: Chief complaint: Weakness Stated complaint: WEAKNESS, THROAT CA Time Seen by Provider: 01/25/20 11:25 History of Present Illness: HPI narrative: 69-year-old male comes in complaining of generally feeling weak says he cannot walk. He has a tracheostomy in place is chronically had problems with that. Was put in in April 2019 he states he has had no increase in cough from it and his breathing seems to be good but he is just very very weak. He was sent over by Dr. Charles. 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 Taveras as well. He denies having a fever he had 2 episodes of diarrhea this morning denies any GI blood loss. Stoma output is unchanged he has a feeding tube there is not had any difficulty with. He is somewhat nauseous. Onset (ago): day(s) Location: abdomen Radiation: non-radiation Relieving factors: none Exacerbating factors: none Associated symptoms: Reports cough (Chronic with no baseline change), decreased appetite, dyspnea (Chronic), headache(s), malaise, nausea and weakness; Deny chest pain, fevers/chills or rash Treatments prior to arrival: none Review of Systems Const: Reports: malaise ENMT: Denies: ear or mastoid pain, nasal discharge or nasal congestion Card: Denies: chest pain Resp: Reports: dyspnea (Chronic) GI: Reports: nausea : Denies: flank pain, dysuria, urinary frequency or urinary urgency Skin/Breast: Denies: rash or pruritus Neuro: Reports: headache(s) PFS ED PFSH: Medical History Atrial fibrillation CKD (chronic kidney disease) 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 Colon cancer adjuvant chemo/FOLFOX and resection in past COPD (chronic obstructive pulmonary disease) Hyperlipidemia Hypertension Neuropathy post chemotherapy for colon cancer Obstructive sleep apnea Has not used CPAP since he got tracheostomy Squamous cell carcinoma of supraglottis Surgical History History of colon resection History of tonsillectomy History of ventral hernia repair mesh Port-A-Cath in place Ja 06/[address] Uses feeding tube Family History Mother Cancer breast Dementia Hypertension Diabetes Brother Diabetes Sister Diabetes Social History Smoking and tobacco status: former smoker Quit status (tobacco): has quit using tobacco Year quit tobacco: 2007 - >0.5PPD x 30 Years Alcohol intake: never Lives independently: Yes Household members: spouse Marital status: Current occupational status: disabled History of recent travel: No Current gender identity: Male Physical Exam HENMT: COMMON NORMALS: normocephalic, atraumatic, hearing grossly normal bilaterally, external ears normal and Normal nasal mucous membranes and turbinates present HEAD & SCALP: normocephalic and atraumatic NOSE: Normal nasal mucous membranes and turbinates present EXTERNAL EAR: Yes external ears normal OTHER: Tracheostomy in place air flowing well there is some dried mucus around the edges of the tracheostomy tube but no obstruction no excessive mucus production noted during time of exam. Eye: COMMON NORMALS: Equal, round and reactive pupils present, EOMs intact bilaterally, conjunctivae normal and no scleral icterus CONJUNCTIVA: Yes conjunctivae normal PUPIL: Yes Equal, round and reactive pupils present Neck/C-Spine: COMMON NORMALS: full ROM, no lymphadenopathy, supple and no JVD Lymph: LYMPHATIC: no lymphadenopathy noted and no lymphedema noted Resp: COMMON NORMALS: normal respiratory effort, No retractions, No use of accessory muscles and clear to auscultation bilaterally AUSCULTATION: clear to auscultation bilaterally Cardio: COMMON NORMALS: no JVD, regular rate, regular rhythm and No murmurs present (Cardio) RATE: regular rate RHYTHM: regular rhythm GI: COMMON NORMALS: Soft to palpation and No hepatosplenomegaly present AUSCULTATION: Yes normoactive bowel sounds PALPATION: Yes Soft to palpation, No Tenderness to palpation present (GI), No Guarding due to palpation present (GI) and Yes No hepatosplenomegaly present Extremity: COMMON NORMALS: normal to inspection, capillary refill normal, no clubbing, cyanosis or edema, no calf tenderness and no pedal edema Skin: COMMON NORMALS: no rashes or lesions noted GENERAL SKIN EXAM: no rashes or lesions noted Course Vital Signs: Vital signs: Vital Signs Temperature 99.1 F 01/25/20 15:12 Pulse Rate 100 01/25/20 16:03 Respiratory Rate 18 01/25/20 16:03 Blood Pressure 108/66 01/25/20 15:30 Pulse Oximetry 93 01/25/20 16:03 MDM - General Adult MDM Narrative: Medical decision making narrative: Suspect the patient has developed C. difficile. He now has known Pseudomonas he is been on cefepime 2 g every 24 hours as an outpatient basis it very follows loose stools in the emergency room. We will test him for C. difficile we added Levaquin organ to go and admit him to the ICU for sepsis discussed with Dr. Govea as well as with Dr. Melvin Charles feels he may be a candidate for hospice since he is not really been able to tolerate any chemotherapy and continues to deteriorate and has his infection that cannot be properly managed. Discussed that with Dr. Govea as well so he is aware of Dr. Charles's general plan. Lab Data: Labs: Lab Results 01/25/20 01/25/20 01/25/20 Range/Units 11:58 11:58 11:58 WBC 16.9 H (4.0-10.0) 10^3/ uL RBC 4.29 (4.1-5.3) 10^6/u L Hgb 12.5 (11.7-16.6) g/dL Hct 41.0 L (42.0-52.0) % MCV 95.6 H (80-94) fL MCH 29.1 (28.0-34.0) pg MCHC 30.5 (30.0-36.0) g/dL RDW 15.0 (12.1-15.1) % Plt Count 611 H (130-400) 10^3/c mm MPV 8.4 (7.4-10.4) fL Neut % (Auto) 88.2 % Lymph % (Auto) 2.3 % [place] % (Auto) 7.8 % Eos % (Auto) 0.4 % Baso % (Auto) 0.2 % Neut # (Auto) 14.9 H (1.8-7.7) 10^3/u L Lymph # (Auto) 0.4 L (0.8-4.8) 10^3/u L [place] # (Auto) 1.3 H (0.2-0.9) 10^3/u L Eos # (Auto) 0.1 (0.0-0.8) 10^3/u L Baso # (Auto) 0.0 (0.0-0.1) 10^3/u L Nucleated RBC % (a uto) 0 % Nucleated RBCs # 0.0 /100WBC Specimen Type Sample Site ABG pH (7.35-7.45) ABG pCO2 (35-45) mmHg ABG pO2 (80.0-100.0) mmH g ABG HCO3 (22-26) mmol/L ABG O2 Saturation ABG Base Excess (-2.0-2.0) mmol/ L Neymar Test A-a O2 Gradient (5-10) mmHg Hematocrit (42-52) % Hgb O2 Saturation (95-100) % Carboxyhemoglobin (0.4-20.1) %THgb Methemoglobin (0.4-1.5) % Total Hemoglobin (14-18) g/dL Ionized Calcium (1.1-1.4) mmol/L O2 Delivery Device Area Secretary ID Sodium 127 L (136-145) mmol/L Potassium 4.6 (3.5-5.1) mmol/L Chloride 87 L (98-107) mmol/L Carbon Dioxide 26 (22-29) mmol/L Anion Gap 18.6 (5-19) BUN 33 H (8-23) mg/dL Creatinine 1.1 (0.7-1.2) mg/dL GFR Calculation 66.6 L (90-130) mL/min Glucose 223 H (65-115) mg/dL Calculated Osmolal ity 268 L (285-295) mOsm/k g Lactate 2.6 H (0.5-2.2) mmol/L Calcium 12.8 H (8.5-10.5) mg/dL Total Bilirubin 0.4 (0.15-1.2) mg/dL AST 26 (0-40) U/L ALT 57 H (0-41) U/L Alkaline Phosphata se 218 H (40-130) IU/L Total Protein 7.2 (6.6-8.7) g/dL Albumin 2.9 L (3.5-5.2) g/dL Globulin 4.3 (1.3-4.6) g/dL Lipase 17 (13-60) U/L 01/25/20 Range/Units 12:04 WBC (4.0-10.0) 10^3/ uL RBC (4.1-5.3) 10^6/u L Hgb (11.7-16.6) g/dL Hct (42.0-52.0) % MCV (80-94) fL MCH (28.0-34.0) pg MCHC (30.0-36.0) g/dL RDW (12.1-15.1) % Plt Count (130-400) 10^3/c mm MPV (7.4-10.4) fL Neut % (Auto) % Lymph % (Auto) % [place] % (Auto) % Eos % (Auto) % Baso % (Auto) % Neut # (Auto) (1.8-7.7) 10^3/u L Lymph # (Auto) (0.8-4.8) 10^3/u L [place] # (Auto) (0.2-0.9) 10^3/u L Eos # (Auto) (0.0-0.8) 10^3/u L Baso # (Auto) (0.0-0.1) 10^3/u L Nucleated RBC % (a uto) % Nucleated RBCs # /100WBC Specimen Type Arterial Sample Site Brachial, left ABG pH 7.46 H (7.35-7.45) ABG pCO2 41.1 (35-45) mmHg ABG pO2 66.5 L (80.0-100.0) mmH g ABG HCO3 29.1 H (22-26) mmol/L ABG O2 Saturation 94.1 ABG Base Excess 4.8 H (-2.0-2.0) mmol/ L Neymar Test Pos A-a O2 Gradient 30.8 H (5-10) mmHg Hematocrit 39.4 L (42-52) % Hgb O2 Saturation 92.0 L (95-100) % Carboxyhemoglobin 1.8 (0.4-20.1) %THgb Methemoglobin 0.4 (0.4-1.5) % Total Hemoglobin 12.9 L (14-18) g/dL Ionized Calcium 1.5 H (1.1-1.4) mmol/L O2 Delivery Device Room air Area Secretary ID monro Sodium 128.0 L (136-145) mmol/L Potassium 4.5 (3.5-5.1) mmol/L Chloride (98-107) mmol/L Carbon Dioxide (22-29) mmol/L Anion Gap (5-19) BUN (8-23) mg/dL Creatinine (0.7-1.2) mg/dL GFR Calculation (90-130) mL/min Glucose 196.0 H (65-115) mg/dL Calculated Osmolal ity (285-295) mOsm/k g Lactate (0.5-2.2) mmol/L Calcium (8.5-10.5) mg/dL Total Bilirubin (0.15-1.2) mg/dL AST (0-40) U/L ALT (0-41) U/L Alkaline Phosphata se (40-130) IU/L Total Protein (6.6-8.7) g/dL Albumin (3.5-5.2) g/dL Globulin (1.3-4.6) g/dL Lipase (13-60) U/L Discharge Plan Discharge Admit Provider: Rolando Gee Clinical Impression: CKD (chronic kidney disease), Atrial fibrillation, COPD (chronic obstructive pulmonary disease), Tracheostomy in place, Squamous cell carcinoma of supraglottis, Uses feeding tube, 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 difficile colitis Condition: Stable Interventions: ED Discharge Assessment Last Done: 01/25/20 14:22 ED Charges Last Done: 01/25/20 14:22 Discharge Date/Time: 01/25/20 14:54 Coding Level of Care Code ED Retail Customer Service Specialist for Chg Fwd Exam Comprehensive
[2020-01-25 12:03] LABS: Basophils % 0.2 %; Eosinophils # 0.1 10^3/uL (0.0-0.8); Eosinophils % 0.4 %; Hemoglobin 12.5 g/dL (11.7-16.6); Lymphocytes # 0.4 10^3/uL (0.8-4.8); Lymphocytes % 2.3 %; Mean Corpuscular HGB Conc 30.5 g/dL (30.0-36.0); Mean Corpuscular Hemoglobin 29.1 pg (28.0-34.0); Mean Corpuscular Volume 95.6 fL (80-94); Mean Platelet Volume 8.4 fL (7.4-10.4); Monocytes # 1.3 10^3/uL (0.2-0.9); Monocytes % 7.8 %; Neutrophils # 14.9 10^3/uL (1.8-7.7); Neutrophils % 88.2 %; Nucleated Red Blood Cells % 0 %; Platelet Count 611 10^3/cmm (130-400); Red Blood Count 4.29 10^6/uL (4.1-5.3); White Blood Count 16.9 10^3/uL (4.0-10.0)
[2020-01-25 12:17] LABS: Alanine Aminotransferase 57 U/L (0-41); Albumin Level 2.9 g/dL (3.5-5.2); Alkaline Phosphatase 218 IU/L (40-130); Anion Gap 18.6 (5-19); Aspartate Amino Transferase 26 U/L (0-40); Blood Urea Nitrogen 33 mg/dL (8-23); Calcium 12.8 mg/dL (8.5-10.5); Carbon Dioxide 26 mmol/L (22-29); Chloride 87 mmol/L (98-107); Globulin 4.3 g/dL (1.3-4.6); Glomerular Filtration Rate 66.6 mL/min (90-130); Glucose 223 mg/dL (65-115); Lactate (Lactic Acid level) 2.6 mmol/L (0.5-2.2); Lipase 17 U/L (13-60); Osmolality Calculated 268 mOsm/kg (285-295); Potassium 4.6 mmol/L (3.5-5.1); Sodium 127 mmol/L (136-145); Total Bilirubin 0.4 mg/dL (0.15-1.2); Total Protein 7.2 g/dL (6.6-8.7)
[2020-01-25 12:22] LABS: ABG PCO2 41.1 mmHg (35-45); ABG PH Result 7.46 (7.35-7.45); Alveolar-Arterial Oxygen Gradi 30.8 mmHg (5-10); Arterial Blood Gas Hematocrit 39.4 % (42-52); Base Excess ABG 4.8 mmol/L (-2.0-2.0); Blood Gas Allen Test Pos; Blood Gas Sample Site Brachial, left; Blood Gas Sample Type Arterial; Carboxyhemoglobin 1.8 %THgb (0.4-20.1); HCO3 ABG 29.1 mmol/L (22-26); Ionized Calcium Level - ABG 1.5 mmol/L (1.1-1.4); Methemoglobin 0.4 % (0.4-1.5); Oxygen Device ROOM AIR; Oxygen Saturation ABG 94.1; PO2 ABG 66.5 mmHg (80.0-100.0); Potassium Level - ABG 4.5 mmol/L (3.5-5.0); Total Hemoglobin 12.9 g/dL (14-18)
[2020-01-25] MEDS: ondansetron 2 mg/ML SDV 2 mL 4 MG IVP (12:24)
[2020-01-25] MEDS: sodium chloride 0.9% 1,000 ML 999 ML IV (12:24)
--- NOTE | 2020-01-25 13:11 | PC.NURSE ---
patient taken to ct
[2020-01-25] MEDS: levofloxacin-dextrose 5 % 750 MG/150 ML PREMIX 100 MG IV (13:20)
[2020-01-25 14:39] LABS: Glucose Urine UA Norm (Normal); Protein Urine Neg (Negative); Urine Appearance Clear (CLEAR); Urine Color Yellow (Yellow); pH Urine 5 (5-7)
[2020-01-25 14:40] LABS: Add Urine Culture? No; Add Urine Microscopic? YES; Bacteria Urine TRACE; Bilirubin Urine Neg (NEGATIVE); Blood Urine 2+ (Negative); Ketones Urine Negative (Negative); Leukocyte Esterase Urine Negative (Negative); Nitrate Urine Negative (Negative); RBC Urine 0-4 /hpf (0-2); Squamous Epithelial Cell Urine 0-4 (0-5); Urobilinogen Urine 1 mg/dL (Negative)
--- NOTE | 2020-01-25 15:30 | XR_ITS ---
WS: [id number] Portable AP upright chest, 01/25/2020 Clinical Data: sob Comparison: Portable chest, 01/12/2020. Findings: No nodules, masses or effusions are seen. The heart is normal. The pulmonary vascularity is not increased. No pneumonia or pneumothorax is seen. The tracheal tube is in good position above the natasha. The right subclavian catheter has not changed. The aortic arch shows mild tortuosity. Monito r leads on the chest wall. XR/XR chest 1V portable [id number] Impression: 1. No change in right subclavian catheter and endotracheal tube. 2. Negative for acute cardiopulmonary disease.
[2020-01-25] MEDS: ipratropium-albuterol 3 mL Neb INHALATION ×2 (16:19→19:45)
--- NOTE | 2020-01-25 16:46 | CTR_ITS ---
PROCEDURE INFORMATION: Exam: CT Neck With Contrast Exam date and time: 01/25/2020 5:01 PM Age: 69 years old Clinical indication: Other: Pseudomonas tracheitis; Prior surgery; Additional info: Upper pharyngeal TECHNIQUE: Imaging protocol: Computed tomography images of the neck with intravenous contrast. Radiation optimization: All CT scans at this facility use at least one of these dose optimization techniques: automated exposure control; mA and/or kV adjustment per patient size (includes targeted exams where dose is matched to clinical indication); or iterative reconstruction. Contrast material: OMNI 300; Contrast volume: 75 ml; Contrast route: IV; COMPARISON: No relevant prior studies available. RADIATION DOSE METRICS: Total DLP: 882.61 mGy-cm FINDINGS: Tubes, catheters and devices: Right Mediport catheter. Nasopharynx: Unremarkable. Oropharynx: Severe inflammation and soft tissue thickening in the oropharynx, hypopharynx and larynx with soft tissue emphysema consistent with necrotic tumor versus severe infectious process. Hypopharynx: Unremarkable. Larynx: Unremarkable. Normal epiglottis. Retropharyngeal space: Unremarkable. Submandibular/Parotid glands: Normal. Glands are normal in size. Thyroid: Normal. No enlarged or calcified nodules. Lymph nodes: Unremarkable. No lymphadenopathy. Trachea: Soft tissue thickening and some soft tissue emphysema surrounding the tracheostomy tube which is contiguous with the inflammation in the proximal thoracic trachea and larynx suggesting continuation of the severe infectious or neoplastic process to the skin surface. Lungs: Unremarkable as visualized. Esophagus: Wall thickening of the cervical esophagus extending into the thoracic inlet consistent with esophagitis. Bones/joints: There is air within the thyroid cartilage bilaterally with possible partial lytic destruction of the cricoid cartilage and arytenoids. Vasculature: Calcification of the abdominal aorta and/or iliac arteries consistent with atherosclerotic vessel disease. Soft tissues: Decreased contrast enhancement in portions of the lesion suggesting possible non perfused tissue. I cannot rule out gangrene. CT/CT neck w con* [id number] IMPRESSION: 1. Right Mediport catheter. 2. Wall thickening of the cervical esophagus extending into the thoracic inlet consistent with esophagitis. 3. Severe inflammation and soft tissue thickening in the oropharynx, hypopharynx and larynx with soft tissue emphysema consistent with necrotic tumor versus severe infectious process. 4. Decreased contrast enhancement in portions of the lesion suggesting possible non perfused tissue. I cannot rule out gangrene. 5. There is air within the thyroid cartilage bilaterally with possible partial lytic destruction of the cricoid cartilage and arytenoids. 6. Soft tissue thickening and some soft tissue emphysema surrounding the tracheostomy tube which is contiguous with the inflammation in the proximal thoracic trachea and larynx suggesting continuation of the severe infectious or neoplastic process to the skin surface. Radiation Dose CTDIVOL = (mGy): DLP = 882.61 (mGy-cm)
--- NOTE | 2020-01-25 16:46 | CTR_ITS ---
PROCEDURE INFORMATION: Exam: CT Chest With Contrast Exam date and time: 01/25/2020 5:01 PM Age: 69 years old Clinical indication: Cough and shortness of breath; Prior surgery; Additional info: SOB, history of reccurent of pseudomnas trachetits TECHNIQUE: Imaging protocol: Computed tomography of the chest with intravenous contrast. Radiation optimization: All CT scans at this facility use at least one of these dose optimization techniques: automated exposure control; mA and/or kV adjustment per patient size (includes targeted exams where dose is matched to clinical indication); or iterative reconstruction. Contrast material: OMNI 300; Contrast volume: 75 ml; Contrast route: IV; COMPARISON: No relevant prior studies available. RADIATION DOSE METRICS: Total DLP: 999.64 mGy-cm FINDINGS: Tubes, catheters and devices: Diffuse thickening of the trachea, particularly at the level of the tracheostomy, consistent with the history of tracheitis. Soft tissue fullness with focal pockets of emphysematous foci just above and at the level of the tracheostomy. This also appears to involve the level of the larynx. This is only partially imaged. Cannot exclude an underlying neoplastic process. Active infectious process is a differential consideration although no visible mature abscess identified, however. Please review separate CT neck examination. Diffuse mucosal thickening of the esophagus greatest at the level of the tracheostomy tube with suspicion for esophagitis. Lungs: Spiculated tumor mass inferior segment of the lingula adjacent to the major fissure dimensions 30 mm x 22 mm by 19 mm. Findings strongly suggestive of lung carcinoma either primary or metastatic in origin. Bibasilar subsegmental alveolar airspace disease which could reflect atelectasis and/or pneumonia. Pleural space: Unremarkable. No pneumothorax. No pleural effusion. Heart: Cardiac structures and configuration with evidence of mild coronary artery disease. No visible pericardial effusion. Aorta: The thoracic aorta is nonaneurysmal. Mild arterial sclerotic disease. Lymph nodes: Few marginally prominent middle mediastinal lymph nodes. Kidneys and ureters: Limited assessment of the upper abdominal contents without visible evidence of active or acute pathologic process. Incidental note of simple renal cortical cysts. No follow-up recommended. Bones/joints: Moderately advanced degenerative disease and degenerative disc disease of the spine with spondylosis deformans. No visible osteolytic or osteoblastic destructive process within the field of view. Soft tissues: See Tubes, catheters and devices finding. CT/CT chest w con* [id number] IMPRESSION: 1. Spiculated tumor mass inferior segment of the lingula with concern for either primary or metastatic lung carcinoma. 2. Diffuse thickening of the trachea, particularly at the level of the tracheostomy, consistent with the history of tracheitis. 3. Soft tissue fullness with focal pockets of emphysematous foci just above and at the level of the tracheostomy. This is only partially imaged. Cannot exclude a underlying neoplastic process. Active infectious process is a differential consideration. 4. Diffuse mucosal thickening of the esophagus consistent with esophagitis. 5. Bibasilar subsegmental alveolar airspace disease which could reflect atelectasis and/or evolving pneumonia. COMMENTS: Consistent with the [employer]'s Incidental Findings Committee white paper (J Am Vinny Radiol 2018): Any incidental renal lesion less than 1.0 cm or classified as too small to characterize, or any incidental cystic renal lesion characterized as simple-appearing, is likely benign. No follow-up imaging is recommended for these lesions per consensus recommendations based on imaging criteria. Radiation Dose CTDIVOL = (mGy): DLP = 999.64 (mGy-cm)
--- NOTE | 2020-01-25 16:52 | PM.HP ---
Providers/Chief Complaint Admitting Physician: Rolando Gee MD Chief Complaint: WEAKNESS, THROAT CA History of Present Illness Edgar Thomas is a 69 year old male who carries a diagnosis of invasive supraglottic cancer currently who underwent chemoradiation therapy, status post trach collar placement, colon cancer status post resection, FSGS chronic kidney disease, recurrent Pseudomonas tracheitis, recently discharged from [facility] in [place] 2 weeks ago for sepsis who presents to [facility] due to complaints of generalized weakness, decreased oxygen saturations, diarrhea. A significant portion of the history was obtained by patient's , patient also helped in history taking but he has a tracheostomy, and most of his communication was through pen and paper. According to roughly 2 weeks ago he was discharged from the [facility] in [place] for recurrent bacterial tracheitis secondary to Pseudomonas and neck swelling, he was transferred from [facility] to the [facility] in [place] as we do not have ENT coverage, according to he got antibiotics down there, he was tested negative for COVID, and was discharged home, has been doing well, has been self isolating. But for the last 2 days patient has had generalized weakness, and this morning was not able to get up, was not able to ambulate, no fevers, no chills. No known exposures to COVID-19 in the last 2 weeks. No shortness of breath. No chest pain. According to his oxygen saturations did drop for the last 2 days. She also reports diarrhea yesterday. Review of Systems Const: Reports: fatigue and malaise; Denies: fever(s) or chills Eyes: Denies: change in vision or blurry vision ENMT: Denies: nasal congestion Card: Denies: chest pain or palpitations Resp: Denies: dyspnea, productive cough, non-productive cough or wheezing GI: Denies: abdominal pain, nausea, vomiting, hematemesis, diarrhea, constipation, hematochezia or melena : Denies: flank pain, difficulty urinating, dysuria or urinary frequency Musc: Denies: neck pain or back pain Skin/Breast: Denies: rash Neuro: Denies: headache(s), dizziness or vertigo Psych: Denies: anxiety or depression Endo: Denies: polyuria or polydipsia Medications/Allergies Home Medications Medication Instructions Recorded Confirmed Last Taken Type apixaban 5 mg PO BID 11/11/19 01/25/20 01/25/20 History pravastatin 40 mg PO DAILY 11/11/19 01/25/20 01/24/20 History acetaminophen 650 mg PO Q4H PRN #300 ml 11/15/19 01/25/20 01/25/20 Rx Mucinex Liquid 5 ml PO QID PRN 11/19/19 01/25/20 12/04/19 History albuterol sulfate 2 puff INHALATION QID PRN 11/19/19 01/25/20 12/04/19 History spironolactone 50 mg PO DAILY 11/19/19 01/25/20 01/25/20 History torsemide 30 mg PO DAILY 11/19/19 01/25/20 01/25/20 History budesonide 0.5 mg/2 mL suspension 0.25 mg INHALATION BID #120 ml 11/24/19 01/25/20 12/04/19 Rx for nebulization ipratropium 0.5 mg-albuterol 3 mg 3 ml INHALATION QID #360 ml 11/24/19 01/25/20 01/25/20 Rx (2.5 mg base)/3 mL nebulization soln metoprolol tartrate 25 mg PO BID 12/04/19 01/25/20 12/04/19 History potassium chloride 10 meq PO DAILY 12/05/19 01/25/20 Unknown History famotidine 20 mg PO DAILY 01/25/20 01/25/20 01/25/20 History food supplemt, lactose-reduced 1 ea PO TID 01/25/20 01/25/20 01/24/20 History [Nutritional Drink] Allergies Allergy/AdvReac Type Severity Reaction Status Date / Time No Known Allergies Allergy Verified 12/28/19 13:31 PFSH Acute PFSH: Medical History Atrial fibrillation CKD (chronic kidney disease) 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 Colon cancer adjuvant chemo/FOLFOX and resection in past COPD (chronic obstructive pulmonary disease) Hyperlipidemia Hypertension Neuropathy post chemotherapy for colon cancer Obstructive sleep apnea Has not used CPAP since he got tracheostomy Squamous cell carcinoma of supraglottis Surgical History History of colon resection History of tonsillectomy History of ventral hernia repair mesh Port-A-Cath in place Ja 06/[address] Uses feeding tube Family History Mother Cancer breast Dementia Hypertension Diabetes Brother Diabetes Sister Diabetes Social History Smoking and tobacco status: former smoker Quit status (tobacco): has quit using tobacco Year quit tobacco: 2007 - >0.5PPD x 30 Years Alcohol intake: never Lives independently: Yes Household members: spouse Marital status: Current occupational status: disabled History of recent travel: No Current gender identity: Male Vitals/I&O/Wt Last Vital Signs Temp 99.1 F 01/25/20 15:12 Pulse 100 01/25/20 16:03 Resp 18 01/25/20 16:03 BP 124/79 01/25/20 16:00 Pulse Ox 93 01/25/20 16:03 Weight last 48 hrs Weight 108.862 kg Physical Exam Const: COMMON NORMALS: no acute distress and patient oriented x3 HENMT: COMMON NORMALS: normocephalic HEAD & SCALP: normocephalic OTHER: Tracheostomy is in place, has thick mucus secretions around it Neck/C-Spine: COMMON NORMALS: no JVD Resp: COMMON NORMALS: normal respiratory effort, No retractions, No use of accessory muscles and clear to auscultation bilaterally AUSCULTATION: clear to auscultation bilaterally Cardio: COMMON NORMALS: no JVD, regular rate, regular rhythm, S1 normal heart sound present and S2 normal heart sound present RATE: regular rate RHYTHM: regular rhythm HEART SOUNDS: S1 normal heart sound present and S2 normal heart sound present GI: COMMON NORMALS: Normal to inspection, nondistended, normoactive bowel sounds present, Soft to palpation, non-tender, No hepatosplenomegaly present, no masses and no bruits PALPATION: Yes Soft to palpation and Yes No hepatosplenomegaly present Extremity: COMMON NORMALS: capillary refill normal, no clubbing, cyanosis or edema, no calf tenderness and no pedal edema Neuro: COMMON NORMALS: patient oriented x3 Psych: COMMON NORMALS: mental status grossly normal Data : 01/25/20 11:58 01/25/20 11:58 Micro: Microbiology 01/25/20 12:05 Blood Culture - Preliminary Blood SPECIMEN COLLECTED 01/25/20 11:58 Blood Culture - Preliminary Blood SPECIMEN COLLECTED A&P Assessment and plan (1) Pseudomonas sepsis: -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 Taveras's office through the [place], but not sure if he got a full course of treatment -When he was down for 16 days in [facility], he did receive what sounds like cefepime -Has complaints of low oxygen saturation, weakness for the last few days -Was seen by Dr. Charles's office this morning, and he was concerned so he was sent over to [facility] -Down in the ER patient had signs of sepsis given blood pressure 93/60, heart rates in the 110s, white blood cell count 16.9, lactate 2.6 -Cultures in the past show Pseudomonas that is fairly resistant, sensitive to Cipro and imipenem -Patient does have thick viscous secretions around tracheostomy site -Patient was recently seen in the emergency room and there was concerns for leak or dislodging around the trach, the trach was changed in the emergency room, -Likely Pseudomonas sepsis secondary to tracheitis Plan: -Admit to ICU -Has received sepsis bolus in the ER, currently normotensive -We will provide gentle hydration -We will obtain a CT with contrast of neck and chest -Sputum cultures, viral cultures -Blood cultures -Broad-spectrum antibiotics Primaxin -Monitor hemodynamics closely -Continue tube feeds -Patient is DNR/DNI -Eliquis for DVT prophylaxis -We will consider consulting Dr. Mock depending on work-up Status: Acute (2) C. difficile colitis: -C. difficile result is pending -Has complaints of diarrhea as outpatient, has been on cefepime and other antibiotics through the [place] -Down in the emergency room patient had volume is diarrhea, that smelled as if it was C. difficile -We will preemptively start him on p.o. vancomycin Status: Acute (3) Tracheitis: Status: Acute (4) Dehydration: -We will start gentle hydration, continuous tube feeds Status: Acute (5) Atrial fibrillation: Continue Eliquis Status: Chronic (6) Hypertension: Status: Chronic (7) CKD (chronic kidney disease): Status: Chronic (8) COPD (chronic obstructive pulmonary disease): Continue inhaler therapy Status: Acute (9) Tracheostomy in place: Status: Chronic Additional A&P Information Sepsis Attestations Medical Necessity Statement*: Patient requires inpatient admission, greater than 2 midnights, for Pseudomonas sepsis, tracheitis, C. difficile colitis, dehydration Coding Level of Care Code Acute Process Checker for [facility] Fwd Diagnoses Pseudomonas sepsis A41.52 C. difficile colitis A04.72 Tracheitis J04.10 Dehydration E86.0 Atrial fibrillation I48.91 Hypertension I10 CKD (chronic kidney disease) N18.9 COPD (chronic obstructive pulmonary disease) J44.[address] Z93.0
[2020-01-25 16:53] LABS: Procalcitonin 0.19 ng/mL (0-0.5)
[2020-01-25] MEDS: iohexol 300 mg/mL 100 mL Btl IV ×2 (17:25→17:26)
[2020-01-25 18:40] LABS: C Reactive Protein 0.3 mg/L (0.0-4.9)
[2020-01-25] MEDS: apixaban 5 mg Tablet PO (19:09)
[2020-01-25] MEDS: metoprolol tartrate 25 mg Tablet PO (19:09)
[2020-01-25] MEDS: sodium chloride 0.9% 1,000 ML 75 ML IV (19:10)
[2020-01-25] MEDS: budesonide 0.5 mg/2 mL Neb 0.25 MG INHALATION (19:45)
[2020-01-25 20:26] LABS: Erythrocyte Sedimentation Rate 92 mm/hr (0-10)
[2020-01-25] MEDS: morphine 4 mg/mL SDV 1 mL 2 MG IVP (20:37)
--- NOTE | 2020-01-25 22:37 | PC.NURSE ---
Pain Pt c/o throat/esophageal pain. Rates 01/24. Per orders, medication not due at this time. Dr. Jack notified by phone at this time for medication orders. Received orders for Dilaudid IVP 2mg Q4hrs PRN.
--- NOTE | 2020-01-25 22:45 | PC.NURSE ---
Vancomycin First dose given about 1929. Medication retimed to 99 as ordered QID.
[2020-01-25] MEDS: HYDROmorphone 1 mg/mL INJ 1 mL 2 MG IVP (22:56)
[2020-01-26] VITALS (33 sets, daily range): BP systolic 98–118; BP diastolic 64–81; PULSE 72–97; RESP 16–20; TEMP 36.7–37.4; O2SAT 85–100
--- NOTE | 2020-01-26 00:49 | PC.NURSE ---
Trach Care Nurse assisting RT with bedside trach care. Site cleansed with sterile water, multiple deep red grooves with purulent drainage appearance with foul odor. Wound cultures sent of ulcerated purulent grooves. New trach ties applied, new inner cannula changed using patients own disposable cannulas.
[2020-01-26] MEDS: morphine 4 mg/mL SDV 1 mL 2 MG IVP ×2 (01:22→20:46)
[2020-01-26 05:31] LABS: Basophils % 0.2 %; Eosinophils # 0.2 10^3/uL (0.0-0.8); Eosinophils % 1.2 %; Hematocrit 36.6 % (42.0-52.0); Hemoglobin 10.9 g/dL (11.7-16.6); Lymphocytes # 0.5 10^3/uL (0.8-4.8); Lymphocytes % 3.9 %; Mean Corpuscular HGB Conc 29.8 g/dL (30.0-36.0); Mean Corpuscular Hemoglobin 28.7 pg (28.0-34.0); Mean Corpuscular Volume 96.3 fL (80-94); Mean Platelet Volume 8.5 fL (7.4-10.4); Monocytes # 1.2 10^3/uL (0.2-0.9); Monocytes % 9.1 %; Neutrophils % 84.4 %; Nucleated Red Blood Cells % 0 %; Platelet Count 541 10^3/cmm (130-400); Red Cell Distribution Width 14.9 % (12.1-15.1)
[2020-01-26] MEDS: acetaminophen 650 mg/20.3 mL UDC PO (05:35)
[2020-01-26 05:54] LABS: Alanine Aminotransferase 52 U/L (0-41); Albumin Level 2.9 g/dL (3.5-5.2); Alkaline Phosphatase 186 IU/L (40-130); Anion Gap 14.9 (5-19); Aspartate Amino Transferase 27 U/L (0-40); Blood Urea Nitrogen 25 mg/dL (8-23); Calcium 11.8 mg/dL (8.5-10.5); Carbon Dioxide 30 mmol/L (22-29); Chloride 90 mmol/L (98-107); Globulin 3.6 g/dL (1.3-4.6); Glomerular Filtration Rate 83.9 mL/min (90-130); Glucose 146 mg/dL (65-115); Osmolality Calculated 269 mOsm/kg (285-295); Potassium 4.9 mmol/L (3.5-5.1); Sodium 130 mmol/L (136-145); Total Bilirubin 0.3 mg/dL (0.15-1.2); Total Protein 6.5 g/dL (6.6-8.7)
[2020-01-26 05:55] LABS: Magnesium 2.4 mg/dL (1.7-2.3); Phosphorus 3.2 mg/dL (2.5-4.5)
[2020-01-26] MEDS: budesonide 0.5 mg/2 mL Neb 0.25 MG INHALATION ×2 (07:40→20:04)
[2020-01-26] MEDS: ipratropium-albuterol 3 mL Neb INHALATION ×4 (07:40→20:03)
[2020-01-26] MEDS: atorvastatin 40 mg Tablet 20 MG PO (08:25)
[2020-01-26] MEDS: metoprolol tartrate 25 mg Tablet PO ×2 (08:25→17:23)
[2020-01-26] MEDS: spironolactone 25 mg Tablet 50 MG PO (08:26)
[2020-01-26] MEDS: apixaban 5 mg Tablet PO ×2 (08:26→17:23)
[2020-01-26] MEDS: potassium chloride oral liq 20 mEq/15 mL UDC 10 MEQ PO (08:38)
[2020-01-26] MEDS: sodium chloride 0.9% 1,000 ML 75 ML IV ×2 (11:23→22:11)
--- NOTE | 2020-01-26 14:42 | P.PN_ITS ---
Subjective Subjective: Interval history: This morning patient is in a bit better spirits, no chills, tolerating tube feeds well, afebrile overnight, still having thick viscous secretions from trach site and around trach site Vitals/I&O/Wt Last Vital Signs Temp 98.2 F 01/26/20 12:00 Pulse 95 01/26/20 14:00 Resp 18 01/26/20 11:02 BP 118/75 01/26/20 14:00 Pulse Ox 98 01/26/20 14:00 01/25/20 01/26/20 01/26/20 22:59 06:59 14:59 Intake Total 100 / 100 694 / 794 1100 / 1100 Output Total 400 / 400 350 / 750 450 / 450 Balance -300 / -300 344 / 44 650 / 650 Weight last 48 hrs Weight 108.862 kg Physical Exam Const: COMMON NORMALS: no acute distress and patient oriented x3 HENMT: COMMON NORMALS: normocephalic HEAD & SCALP: normocephalic OTHER: Tracheostomy is in place, has thick mucus secretions around it Neck/C-Spine: COMMON NORMALS: no JVD Resp: COMMON NORMALS: normal respiratory effort, No retractions, No use of accessory muscles and clear to auscultation bilaterally AUSCULTATION: clear to auscultation bilaterally Cardio: COMMON NORMALS: no JVD, regular rate, regular rhythm, S1 normal heart sound present and S2 normal heart sound present RATE: regular rate RHYTHM: regular rhythm HEART SOUNDS: S1 normal heart sound present and S2 normal heart sound present GI: COMMON NORMALS: Normal to inspection, nondistended, normoactive bowel sounds present, Soft to palpation, non-tender, No hepatosplenomegaly present, no masses and no bruits PALPATION: Yes Soft to palpation and Yes No hepatosplenomegaly present Extremity: COMMON NORMALS: capillary refill normal, no clubbing, cyanosis or edema, no calf tenderness and no pedal edema Neuro: COMMON NORMALS: patient oriented x3 Psych: COMMON NORMALS: mental status grossly normal Data : 01/26/20 05:15 01/26/20 05:15 Micro: Microbiology 01/25/20 17:30 Gram Stain - Final Sputum - Expectorated Sputum 01/25/20 12:05 Blood Culture - Preliminary Blood NEGATIVE TO DATE 01/25/20 11:58 Blood Culture - Preliminary Blood NEGATIVE TO DATE 01/25/20 22:20 C.difficile Toxin B Gene (PCR) - Final Stool A&P Assessment and plan (1) Pseudomonas sepsis: -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 Taveras's office through the [place], but not sure if he got a full course of treatment -When he was down for 16 days in [facility]: For his history of squamous cell carcinoma right supraglottic larynx, he had a CT of the neck showing a malignant burden with and without evidence of infection, there was concern for interval development of 2.2 x 1 point centimeter irregular soft tissue nodule in the lingula, status post lung biopsy, results showing squamous cell carcinoma, he also was treated for tracheitis, sputum cultures growing Pseudomonas, treated with ceftazidime and cefepime at one point, culture sensitive to ceftazidime, also had C. difficile, received vancomycin treatment -Has complaints of low oxygen saturation, weakness for the last few days -Was seen by Dr. Charles's office this morning, and he was concerned so he was sent over to [facility] -Down in the ER patient had signs of sepsis given blood pressure 93/60, heart rates in the 110s, white blood cell count 16.9, lactate 2.6 -Cultures in the past show Pseudomonas that is fairly resistant, sensitive to Cipro and imipenem -Patient does have thick viscous secretions around tracheostomy site -Patient was recently seen in the emergency room and there was concerns for leak or dislodging around the trach, the trach was changed in the emergency room, -CT NECK AND CHEST SHOW: -3. Severe inflammation and soft tissue thickening in the oropharynx, hypopharynx and larynx with soft tissue emphysema consistent with necrotic tumor versus severe infectious process. 4. Decreased contrast enhancement in portions of the lesion suggesting possible non perfused tissue. I cannot rule out gangrene. 5. There is air within the thyroid cartilage bilaterally with possible partial lytic destruction of the cricoid cartilage and arytenoids. 6. Soft tissue thickening and some soft tissue emphysema surrounding the tracheostomy tube which is contiguous with the inflammation in the proximal thoracic trachea and larynx suggesting continuation of the severe infectious or neoplastic process to the skin surface 1. Spiculated tumor mass inferior segment of the lingula with concern for either primary or metastatic lung carcinoma. 2. Diffuse thickening of the trachea, particularly at the level of the tracheostomy, consistent with the history of tracheitis. 3. Soft tissue fullness with focal pockets of emphysematous foci just above and at the level of the tracheostomy. This is only partially imaged. Cannot exclude a underlying neoplastic process. Active infectious process is a differential consideration. -Likely these findings represent underlying tracheitis, with surrounding infection, possible necrotic tissue, possible tumor burden with necrotic tumor, only surgical exploration would provide a clear answer -I discussed these findings with Dr. Mock, who advised that patient would likely require extensive surgical procedure at a tertiary level center for debridement for necrotic debris infection versus tumor burden, surgical interventions would likely carry a significant morbidity and mortality given his current condition -other options include continuing medical therapy versus hospice -Patient is adamant on not having surgical interventions -I also spoke to Dr. Charles about the case, who thinks that hospice would be a reasonable option Plan: -Admit to ICU -We will provide gentle hydration -Sputum cultures, viral cultures -Blood cultures -Broad-spectrum antibiotics Primaxin -Monitor hemodynamics closely -Continue tube feeds -Patient is DNR/DNI -Eliquis for DVT prophylaxis -We will discussed with patient hospice options Status: Acute (2) C. 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 difficile, -Has complaints of diarrhea as outpatient, [facility] -[facility] in [facility] room patient had volume is diarrhea, that smelled as if it was C. difficile -Continue p.o. vancomycin, will require a pulse tapered regimen Status: Acute (3) Tracheitis: Status: Acute (4) Dehydration: -We will start gentle hydration, continuous tube feeds Status: Acute (5) Atrial fibrillation: Continue Eliquis Status: Chronic (6) Hypertension: Status: Chronic (7) CKD (chronic kidney disease): Status: Chronic (8) COPD (chronic obstructive pulmonary disease): Continue inhaler therapy Status: Acute (9) Tracheostomy in place: Status: Chronic Additional A&P Information Sepsis Attestations Medical Necessity Statement*: Patient requires hospitalization for acute bact erial tracheitis, with underlying deep tissue infection, possible necrotic tumor burden, C. difficile colitis Coding Level of Care Code Acute [facility]ting Cutter for [facility] Fwd Diagnoses Pseudomonas sepsis A41.52 C. difficile colitis A04.72 Tracheitis J04.10 Dehydration E86.0 Atrial fibrillation I48.91 Hypertension I10 CKD (chronic kidney disease) N18.9 COPD (chronic obstructive pulmonary disease) J44.[address] Z93.0
[2020-01-26] MEDS: HYDROmorphone 1 mg/mL INJ 1 mL 2 MG IVP ×3 (15:47→22:41)
[2020-01-27] VITALS (34 sets, daily range): BP systolic 93–128; BP diastolic 66–83; PULSE 79–124; RESP 16–20; TEMP 36.9–37.1; O2SAT 80–100
[2020-01-27] MEDS: morphine 4 mg/mL SDV 1 mL 2 MG IVP ×4 (00:30→21:17)
[2020-01-27] MEDS: HYDROmorphone 1 mg/mL INJ 1 mL 2 MG IVP ×3 (03:30→23:08)
[2020-01-27 05:59] LABS: Basophils % 0.2 %; Eosinophils # 0.2 10^3/uL (0.0-0.8); Eosinophils % 1.6 %; Hematocrit 37.3 % (42.0-52.0); Lymphocytes # 0.5 10^3/uL (0.8-4.8); Lymphocytes % 3.5 %; Mean Corpuscular HGB Conc 29.5 g/dL (30.0-36.0); Mean Corpuscular Hemoglobin 28.6 pg (28.0-34.0); Mean Corpuscular Volume 97.1 fL (80-94); Mean Platelet Volume 8.3 fL (7.4-10.4); Monocytes # 1.1 10^3/uL (0.2-0.9); Monocytes % 8.7 %; Neutrophils # 11.2 10^3/uL (1.8-7.7); Nucleated Red Blood Cells % 0 %; Platelet Count 566 10^3/cmm (130-400); Red Blood Count 3.84 10^6/uL (4.1-5.3); Red Cell Distribution Width 14.9 % (12.1-15.1); White Blood Count 13.2 10^3/uL (4.0-10.0)
[2020-01-27 06:17] LABS: Magnesium 2.4 mg/dL (1.7-2.3); Phosphorus 3.2 mg/dL (2.5-4.5)
[2020-01-27 06:23] LABS: Alanine Aminotransferase 88 U/L (0-41); Albumin Level 2.9 g/dL (3.5-5.2); Alkaline Phosphatase 205 IU/L (40-130); Anion Gap 13.2 (5-19); Aspartate Amino Transferase 62 U/L (0-40); Blood Urea Nitrogen 23 mg/dL (8-23); Calcium 11.7 mg/dL (8.5-10.5); Carbon Dioxide 31 mmol/L (22-29); Chloride 96 mmol/L (98-107); Globulin 3.6 g/dL (1.3-4.6); Glomerular Filtration Rate 83.9 mL/min (90-130); Glucose 161 mg/dL (65-115); Osmolality Calculated 280 mOsm/kg (285-295); Potassium 5.2 mmol/L (3.5-5.1); Sodium 135 mmol/L (136-145); Total Bilirubin 0.2 mg/dL (0.15-1.2); Total Protein 6.5 g/dL (6.6-8.7)
[2020-01-27] MEDS: ipratropium-albuterol 3 mL Neb INHALATION ×4 (07:29→20:59)
[2020-01-27] MEDS: budesonide 0.5 mg/2 mL Neb 0.25 MG INHALATION ×2 (07:29→20:58)
[2020-01-27] MEDS: spironolactone 25 mg Tablet 50 MG PO (09:16)
[2020-01-27] MEDS: potassium chloride oral liq 20 mEq/15 mL UDC 10 MEQ PO (09:17)
[2020-01-27] MEDS: apixaban 5 mg Tablet PO ×2 (09:17→17:48)
[2020-01-27] MEDS: metoprolol tartrate 25 mg Tablet PO ×2 (09:17→17:48)
[2020-01-27] MEDS: atorvastatin 40 mg Tablet 20 MG PO (09:17)
[2020-01-27 11:40] LABS: Glucose Point of Care 168 mg/dL (70-110)
--- NOTE | 2020-01-27 12:09 | PC.RESP ---
Pulmonary Rehab information sent to patient.
--- NOTE | 2020-01-27 12:50 | PC.NURSE ---
1000 dr. beck discussed hospice with patient. pt. requested that phys. discuss it with his .
--- NOTE | 2020-01-27 13:26 | PC.NURSE ---
refuses oral care
--- NOTE | 2020-01-27 13:45 | PC.NURSE ---
END OF LIFE CARE REQUEST PUT IN TO [facility]ILL[facility] TO ALLOW PAULA WILEY TO VISIT ICU TO SPEAK WITH , SULLY WILEY REGARDING END OF LIFE CARE. PT HAS A TRACH & IS UNABLE TO SPEAK TO ON PHONE.
--- NOTE | 2020-01-27 15:05 | P.PN_ITS ---
Subjective Subjective: Interval history: This morning patient indicates to me that he is doing okay, still having quite thick viscous secretions from his tracheostomy, and around his tracheostomy, no fevers overnight, no chills, tolerating his tube feeds well I had a discussion with patient it looks like he has Pseudomonas tracheitis, with surrounding infection extending into the deep tissues of the in the neck and chest, in addition he also has Pseudomonas bacteremia. In addition he could have a necrotic tumor or tumor burden, associated with the area of concern. I advised patient that the ideal way to treat this infection as he has failed multiple rounds of IV antibiotics is surgical intervention, which will be quite extensive, and carry a significant degree of morbidity mortality, but this would be the most effective way to treat the infection associated the tracheostomy site. Patient refused surgical intervention, from day 1 he told me he did not want surgery. 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 difficile, high risk of sepsis, septic shock, high risk of morbidity and mortality, high risk of significant suffering, high risk of readmission. The other option would be emphasizing hospice, emphasizing comfort, although not ideal we could try oral antibiotics, we can let him go to his home to his , alleviate his pain, alleviate his suffering, and emphasize more of his quality of life. In addition I spoke to Dr. Mock, Dr. Mock believes likely patient's condition requires significant surgical intervention, which has to be done on higher level of care, carries significant morbidity and mortality, and he feels that certainly doing comfort care will be a reasonable option. I also spoke to Dr. Charles, who certainly believes that comfort care would be a reasonable option,. Patient stated that he wanted me to talk to his , I was able to spoke to Ledy this afternoon, she understood the 3 options, voiced understanding, all questions answered, stated that she wanted to speak to Edgar about his future directives. Unfortunately as he has a tracheostomy, it is very hard for her to communicate with him, I have allowed Ledy to come see Edgar in the ICU, as this involves his end-of-life care, goals of care. Will await family's decision. Vitals/I&O/Wt Last Vital Signs Temp 98.4 F 01/27/20 13:00 Pulse 89 01/27/20 14:00 Resp 17 01/27/20 11:50 BP 105/77 01/27/20 14:00 Pulse Ox 97 01/27/20 14:00 01/27/20 01/27/20 01/27/20 06:59 14:59 22:59 Intake Total 100 / 3413 920 / 920 Output Total 1125 / 2075 850 / 850 Balance -1025 / 1338 70 / 70 Physical Exam Const: COMMON NORMALS: no acute distress and patient oriented x3 HENMT: COMMON NORMALS: normocephalic HEAD & SCALP: normocephalic OTHER: Tracheostomy is in place, has thick mucus secretions around it Neck/C-Spine: COMMON NORMALS: no JVD Resp: COMMON NORMALS: normal respiratory effort, No retractions, No use of accessory muscles and clear to auscultation bilaterally AUSCULTATION: clear to auscultation bilaterally Cardio: COMMON NORMALS: no JVD, regular rate, regular rhythm, S1 normal heart sound present and S2 normal heart sound present RATE: regular rate RHYTHM: regular rhythm HEART SOUNDS: S1 normal heart sound present and S2 normal heart sound present GI: COMMON NORMALS: Normal to inspection, nondistended, normoactive bowel sounds present, Soft to palpation, non-tender, No hepatosplenomegaly present, no masses and no bruits PALPATION: Yes Soft to palpation and Yes No hepatosplenomegaly present Extremity: COMMON NORMALS: capillary refill normal, no clubbing, cyanosis or edema, no calf tenderness and no pedal edema Neuro: COMMON NORMALS: patient oriented x3 Psych: COMMON NORMALS: mental status grossly normal Data : 01/27/20 05:46 01/27/20 05:46 Micro: Microbiology 01/25/20 11:58 Blood Culture - Preliminary Blood Pseudomonas species 01/26/20 14:04 MRSA Culture - Final Nose 01/26/20 01:00 Wound Culture - Preliminary Neck Gram Negative Rods 01/25/20 17:30 Gram Stain - Final Sputum - Expectorated Sputum Sputum Culture - Preliminary 01/25/20 12:05 Blood Culture - Preliminary Blood NEGATIVE TO DATE A&P Assessment and plan (1) Pseudomonas sepsis: -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 Taveras's office through the [place], but not sure if he got a full course of treatment -When he was down for 16 days in [facility]: For his history of squamous cell carcinoma right supraglottic larynx, he had a CT of the neck showing a malignant burden with and without evidence of infection, there was concern for interval development of 2.2 x 1 point centimeter irregular soft tissue nodule in the lingula, status post lung biopsy, results showing squamous cell carcinoma, he also was treated for tracheitis, sputum cultures growing Pseudomonas, treated with ceftazidime and cefepime at one point, culture sensitive to ceftazidime, also had C. difficile, received vancomycin treatment -Has complaints of low oxygen saturation, weakness for the last few days -Was seen by Dr. Charles's office this morning, and he was concerned so he was sent over to [facility] -Down in the ER patient had signs of sepsis given blood pressure 93/60, heart rates in the 110s, white blood cell count 16.9, lactate 2.6 -Cultures in the past show Pseudomonas that is fairly resistant, sensitive to Cipro and imipenem -Patient does have thick viscous secretions around tracheostomy site -Patient was recently seen in the emergency room and there was concerns for leak or dislodging around the trach, the trach was changed in the emergency room, -CT NECK AND CHEST SHOW: -3. Severe inflammation and soft tissue thickening in the oropharynx, hypopharynx and larynx with soft tissue emphysema consistent with necrotic tumor versus severe infectious process. 4. Decreased contrast enhancement in portions of the lesion suggesting possible non perfused tissue. I cannot rule out gangrene. 5. There is air within the thyroid cartilage bilaterally with possible partial lytic destruction of the cricoid cartilage and arytenoids. 6. Soft tissue thickening and some soft tissue emphysema surrounding the tracheostomy tube which is contiguous with the inflammation in the proximal thoracic trachea and larynx suggesting continuation of the severe infectious or neoplastic process to the skin surface 1. Spiculated tumor mass inferior segment of the lingula with concern for either primary or metastatic lung carcinoma. 2. Diffuse thickening of the trachea, particularly at the level of the tracheostomy, consistent with the history of tracheitis. 3. Soft tissue fullness with focal pockets of emphysematous foci just above and at the level of the tracheostomy. This is only partially imaged. Cannot exclude a underlying neoplastic process. Active infectious process is a differential consideration. -Likely these findings represent underlying tracheitis, with surrounding infection, possible necrotic tissue, possible tumor burden with necrotic tumor, only surgical exploration would provide a clear answer -I discussed these findings with Dr. Mock, who advised that patient would likely require extensive surgical procedure at a tertiary level center for debridement for necrotic debris infection versus tumor burden, surgical interventions would likely carry a significant morbidity and mortality given his current condition -other options include continuing medical therapy versus hospice -Patient is adamant on not having surgical interventions -I also spoke to Dr. Charles about the case, who thinks that hospice would be a reasonable option -Blood cultures are positive for Pseudomonas, likely has Pseudomonas tracheitis, surrounding deep tissue infection involving the deep structures of the neck, with necrotic tumor/tumor -I have discussed hospice versus continuing medical therapy versus surgical intervention with patient and his , they will come to a decision -Currently getting 28% FiO2 through trach collar Plan: -Admit to ICU -We will provide gentle hydration -Sputum cultures, viral cultures -Blood cultures -Broad-spectrum antibiotics Primaxin -Monitor hemodynamics closely -Continue tube feeds -Patient is DNR/DNI -Eliquis for DVT prophylaxis -We will discussed with patient hospice options Status: Acute (2) C. 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 difficile, -Has complaints of diarrhea as outpatient, [facility] -[facility] in the emergency room patient had volume is diarrhea, that smelled as if it was C. difficile -Continue p.o. vancomycin, will require a pulse tapered regimen Status: Acute (3) Tracheitis: Status: Acute (4) Dehydration: -We will start gentle hydration, continuous tube feeds Status: Acute (5) Atrial fibrillation: Continue Eliquis Status: Chronic (6) Hypertension: Status: Chronic (7) CKD (chronic kidney disease): Status: Chronic (8) COPD (chronic obstructive pulmonary disease): Continue inhaler therapy Status: Acute (9) Tracheostomy in place: Status: Chronic (10) Lung cancer, lingula: Primary versus metastatic Status: Acute Additional A&P Information Sepsis Attestations Medical Necessity Statement*: Patient requires continued hospitalization for Pseudomonas tracheitis, Pseudomonas bacteremia, deep tissue infection of the neck, tumor burden of neck, weakness, deconditioning Coding Level of Care Code Acute [facility] for [facility] Fwd Diagnoses Pseudomonas sepsis A41.52 C. difficile colitis A04.72 Tracheitis J04.10 Dehydration E86.0 Atrial fibrillation I48.91 Hypertension I10 CKD (chronic kidney disease) N18.9 COPD (chronic obstructive pulmonary disease) J44.[address] Z93.0 Lung cancer, lingula C34.10
--- NOTE | 2020-01-27 15:29 | PC.NURSE ---
trake care done. in. social work specialist notified.
--- NOTE | 2020-01-27 15:46 | PC.NURSE ---
during trake care, oc very foul odor from trake and on dressings
--- NOTE | 2020-01-27 16:09 | PC.NURSE ---
edema to neck appears more than this am.
[2020-01-27] MEDS: sodium chloride 0.9% 1,000 ML 50 ML IV (17:50)
--- NOTE | 2020-01-27 19:30 | PC.NURSE ---
Hospice Nurse (Cristina, RN) came to see pt. Cristina said after discussion with pt and family, they have decided to do hospice at home after discharge. Cristina stated pt would rather wait until thursday to go home.
--- NOTE | 2020-01-27 23:43 | PC.NURSE ---
Pt continues to c/o pain and asks for morphine and Dilaudid. Trach dressing changed.
[2020-01-28] VITALS (28 sets, daily range): BP systolic 105–149; BP diastolic 66–92; PULSE 84–108; RESP 8–22; TEMP 36.6–37.2; O2SAT 91–100
[2020-01-28] MEDS: morphine 4 mg/mL SDV 1 mL 2 MG IVP ×3 (01:06→20:00)
[2020-01-28] MEDS: HYDROmorphone 1 mg/mL INJ 1 mL 2 MG IVP ×4 (03:18→23:50)
[2020-01-28 05:04] LABS: Basophils % 0.2 %; Eosinophils # 0.2 10^3/uL (0.0-0.8); Eosinophils % 1.8 %; Hematocrit 36.1 % (42.0-52.0); Hemoglobin 10.7 g/dL (11.7-16.6); Lymphocytes # 0.4 10^3/uL (0.8-4.8); Lymphocytes % 2.8 %; Mean Corpuscular HGB Conc 29.6 g/dL (30.0-36.0); Mean Corpuscular Hemoglobin 28.7 pg (28.0-34.0); Mean Corpuscular Volume 96.8 fL (80-94); Mean Platelet Volume 8.4 fL (7.4-10.4); Monocytes # 1.1 10^3/uL (0.2-0.9); Monocytes % 8.9 %; Neutrophils # 10.6 10^3/uL (1.8-7.7); Neutrophils % 85.4 %; Nucleated Red Blood Cells % 0 %; Platelet Count 568 10^3/cmm (130-400); Red Blood Count 3.73 10^6/uL (4.1-5.3); Red Cell Distribution Width 14.9 % (12.1-15.1); White Blood Count 12.4 10^3/uL (4.0-10.0)
[2020-01-28 05:25] LABS: Alanine Aminotransferase 87 U/L (0-41); Alkaline Phosphatase 201 IU/L (40-130); Anion Gap 10.2 (5-19); Aspartate Amino Transferase 58 U/L (0-40); Blood Urea Nitrogen 24 mg/dL (8-23); Carbon Dioxide 30 mmol/L (22-29); Chloride 100 mmol/L (98-107); Globulin 3.1 g/dL (1.3-4.6); Glomerular Filtration Rate 96.1 mL/min (90-130); Glucose 162 mg/dL (65-115); Osmolality Calculated 280 mOsm/kg (285-295); Potassium 5.2 mmol/L (3.5-5.1); Sodium 135 mmol/L (136-145); Total Bilirubin 0.3 mg/dL (0.15-1.2); Total Protein 6.1 g/dL (6.6-8.7)
[2020-01-28 05:27] LABS: Magnesium 2.3 mg/dL (1.7-2.3); Phosphorus 3.1 mg/dL (2.5-4.5)
[2020-01-28] MEDS: budesonide 0.5 mg/2 mL Neb 0.25 MG INHALATION ×2 (07:43→20:06)
[2020-01-28] MEDS: ipratropium-albuterol 3 mL Neb INHALATION ×4 (07:44→20:06)
[2020-01-28] MEDS: sodium chloride 0.9% 1,000 ML 50 ML IV (08:00)
[2020-01-28] MEDS: guaiFENesin 100 mg/5 mL UDC 10 mL PO (08:02)
[2020-01-28] MEDS: atorvastatin 40 mg Tablet 20 MG PO (08:03)
[2020-01-28] MEDS: apixaban 5 mg Tablet PO ×2 (08:03→19:28)
[2020-01-28] MEDS: metoprolol tartrate 25 mg Tablet PO ×2 (08:03→19:28)
[2020-01-28] MEDS: spironolactone 25 mg Tablet 50 MG PO (08:04)
[2020-01-28] MEDS: potassium chloride oral liq 20 mEq/15 mL UDC 10 MEQ PO (08:05)
--- NOTE | 2020-01-28 12:30 | PM.PN ---
Subjective Subjective: Interval history: This morning patient was examined, no fevers, no chills, no nausea, no vomiting, continues to have significant purulent drainage around his tracheostomy site, and from his trach, continue deep suctioning, no chest pain, no shortness of breath, patient looks fairly sad, depressed unfortunately we had a discussion yesterday with the patient, his in the ICU about options are available to him 1.) Option I discussed with surgical interventions, he will likely require extensive surgical interventions involving the deep tissues of his neck, surgical interventions in my mind would carry the best result, given my worry of deep tissue infections, tracheitis, likely associate with Pseudomonas however they do carry a significant risk of morbidity and mortality, I do not know if he would be able to stand surgery, nor does patient want to have surgery. 2.) Option I advised patient discontinue medical therapy, continue adequate interventions, but I think that this would be suboptimal, as patient continues to have recurrent Pseudomonas tracheitis, and given CT evidence of deep tissue infection and/or tumor burden and necrotic tumor, I feel that he would likely have recurrent admissions, recurrent hospitalization, significant risk of sepsis, septic shock, and significant suffering associated with. Patient has already finished multiple rounds of antibiotics, has been at [facility] [place], has tried inhaled tobramycin through Dr. Taveras's office, however his clinical condition does not improve, continues to have thick viscous creamy secretions from his tracheostomy/around his tracheostomy site, indicating to me that he likely has a significant deep tissue infection of the structures of his neck, and antibiotics will no longer be the solution. Advised patient that we can continue all medical interventions, see if we can get him into a better spot, however long that takes, see if we can get him home, as she failed to get antibiotics arranged for him as outpatient,, and that we are here for him if this is his option 3.)Third option would be hospice, hospice would be emphasizing comfort, easing his pain is in his suffering, allowing him to be around family members at home, circumventing recurrent hospital admissions, emphasizing a quality of life. We can try oral antibiotics for Pseudomonas infection and bacteremia, although not ideal, but will provide some benefit. We can try IV antibiotics, but like I said above, likely the infection will recur, IV antibiotics are a bit aggressive, but it certainly an option if hospice agrees. and patient, agreed to hospice option, voiced understanding, all questions answered, agreed to proceed with hospice Vitals/I&O/Wt Last Vital Signs Temp 98.8 F 01/28/20 08:00 Pulse 92 01/28/20 11:02 Resp 18 01/28/20 11:44 BP 105/81 01/28/20 06:00 Pulse Ox 99 01/28/20 11:00 01/27/20 01/28/20 01/28/20 22:59 06:59 14:59 Intake Total 2033 / 3233 100 / 3333 1195.000 / 1195.000 Output Total 250 / 1100 500 / 1600 1400 / 1400 Balance 1783 / 2133 -400 / 1733 -205.000 / -205.000 Physical Exam Const: COMMON NORMALS: no acute distress and patient oriented x3 HENMT: COMMON NORMALS: normocephalic HEAD & SCALP: normocephalic OTHER: Tracheostomy is in place, has thick mucus secretions around it Neck/C-Spine: COMMON NORMALS: no JVD Resp: COMMON NORMALS: normal respiratory effort, No retractions, No use of accessory muscles and clear to auscultation bilaterally AUSCULTATION: clear to auscultation bilaterally Cardio: COMMON NORMALS: no JVD, regular rate, regular rhythm, S1 normal heart sound present and S2 normal heart sound present RATE: regular rate RHYTHM: regular rhythm HEART SOUNDS: S1 normal heart sound present and S2 normal heart sound present GI: COMMON NORMALS: Normal to inspection, nondistended, normoactive bowel sounds present, Soft to palpation, non-tender, No hepatosplenomegaly present, no masses and no bruits PALPATION: Yes Soft to palpation and Yes No hepatosplenomegaly present Extremity: COMMON NORMALS: capillary refill normal, no clubbing, cyanosis or edema, no calf tenderness and no pedal edema Neuro: COMMON NORMALS: patient oriented x3 Psych: COMMON NORMALS: mental status grossly normal Data : 01/28/20 04:51 01/28/20 04:51 Micro: Microbiology 01/26/20 01:00 Wound Culture - Preliminary Neck Pseudomonas aeruginosa Enterococcus species 01/27/20 09:50 Gram Stain - Final Sputum - Endotracheal Tube Aspirate Sputum Culture - Preliminary 01/25/20 17:30 Gram Stain - Final Sputum - Expectorated Sputum Sputum Culture - Preliminary Gram Negative Rods 01/25/20 11:58 Blood Culture - Preliminary Blood Pseudomonas species 01/26/20 14:04 MRSA Culture - Final Nose A&P Assessment and plan (1) Pseudomonas sepsis: -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 Taveras[facility] through the [facility], but not sure if he got a full course of treatment -When he was down for 16 days in [facility]: For his history of squamous cell carcinoma right supraglottic larynx, he had a CT of the neck showing a malignant burden with and without evidence of infection, there was concern for interval development of 2.2 x 1 point centimeter irregular soft tissue nodule in the lingula, status post lung biopsy, results showing squamous cell carcinoma, he also was treated for tracheitis, sputum cultures growing Pseudomonas, treated with ceftazidime and cefepime at one point, culture sensitive to ceftazidime, also had C. difficile, received vancomycin treatment -Has complaints of low oxygen saturation, weakness for the last few days -Was seen by Dr. Charles's office this morning, and he was concerned so he was sent over to [facility] -Down in the ER patient had signs of sepsis given blood pressure 93/60, heart rates in the 110s, white blood cell count 16.9, lactate 2.6 -Cultures in the past show Pseudomonas that is fairly resistant, sensitive to Cipro and imipenem -Patient does have thick viscous secretions around tracheostomy site -Patient was recently seen in the emergency room and there was concerns for leak or dislodging around the trach, the trach was changed in the emergency room, -CT NECK AND CHEST SHOW: -3. Severe inflammation and soft tissue thickening in the oropharynx, hypopharynx and larynx with soft tissue emphysema consistent with necrotic tumor versus severe infectious process. 4. Decreased contrast enhancement in portions of the lesion suggesting possible non perfused tissue. I cannot rule out gangrene. 5. There is air within the thyroid cartilage bilaterally with possible partial lytic destruction of the cricoid cartilage and arytenoids. 6. Soft tissue thickening and some soft tissue emphysema surrounding the tracheostomy tube which is contiguous with the inflammation in the proximal thoracic trachea and larynx suggesting continuation of the severe infectious or neoplastic process to the skin surface 1. Spiculated tumor mass inferior segment of the lingula with concern for either primary or metastatic lung carcinoma. 2. Diffuse thickening of the trachea, particularly at the level of the tracheostomy, consistent with the history of tracheitis. 3. Soft tissue fullness with focal pockets of emphysematous foci just above and at the level of the tracheostomy. This is only partially imaged. Cannot exclude a underlying neoplastic process. Active infectious process is a differential consideration. -Likely these findings represent underlying tracheitis, with surrounding infection, possible necrotic tissue, possible tumor burden with necrotic tumor, only surgical exploration would provide a clear answer -I discussed these findings with Dr. Mock, who advised that patient would likely require extensive surgical procedure at a tertiary level center for debridement for necrotic debris infection versus tumor burden, surgical interventions would likely carry a significant morbidity and mortality given his current condition -other options include continuing medical therapy versus hospice -Patient is adamant on not having surgical interventions -I also spoke to Dr. Charles about the case, who thinks that hospice would be a reasonable option -Blood cultures are positive for Pseudomonas, likely has Pseudomonas tracheitis, surrounding deep tissue infection involving the deep structures of the neck, with necrotic tumor/tumor -I have discussed hospice versus continuing medical therapy versus surgical intervention with patient and his , they will come to a decision -Currently getting 28% FiO2 through trach collar Plan: -Admit to ICU -We will provide gentle hydration -Pseudomonas bacteremia -Sputum cultures Pseudomonas, enterococcus -Broad-spectrum antibiotics Primaxin -will see if can chnage to oral antibitoics -Monitor hemodynamics closely -Continue tube feeds -Patient is DNR/DNI -Eliquis for DVT prophylaxis -Proceed with hospice Status: Acute (2) C. 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 difficile, -Has complaints of diarrhea as outpatient, [facility] -[facility] in the emergency room patient had volume is diarrhea, that smelled as if it was C. difficile -Continue p.o. vancomycin, will require a pulse tapered regimen Status: Acute (3) Tracheitis: Status: Acute (4) Dehydration: -We will start gentle hydration, continuous tube feeds Status: Acute (5) Atrial fibrillation: Continue Eliquis Status: Chronic (6) Hypertension: Status: Chronic (7) CKD (chronic kidney disease): Status: Chronic (8) COPD (chronic obstructive pulmonary disease): Continue inhaler therapy Status: Acute (9) Tracheostomy in place: Status: Chronic (10) Lung cancer, lingula: Primary versus metastatic Status: Acute Additional A&P Information Sepsis Attestations Medical Necessity Statement*: Patient requires hospitalization for pseudmonas bactermia and trachesotomy infection, trachetitis, c diff infection, proceeding to hospice Coding Level of Care Code Acute [employer] for [facility] Fwd Diagnoses Pseudomonas sepsis A41.52 C. difficile colitis A04.72 Tracheitis J04.10 Dehydration E86.0 Atrial fibrillation I48.91 Hypertension I10 CKD (chronic kidney disease) N18.9 COPD (chronic obstructive pulmonary disease) J44.[address] Z93.0 Lung cancer, lingula C34.10
--- NOTE | 2020-01-28 13:18 | PC.NURSE ---
patient is pleasant and cooperative, but when he writes notes he does not appear to be appropriate. he wrote a story about his daughter in and how the principle made her put a tshirt on over her cloths so that he large breasts were not exposed. he then wrote that he could make a lot of money on halloween with how strange he looks. patient was shaved and bathed today.
--- NOTE | 2020-01-28 14:38 | PC.SOCIAL ---
IMM Update Pg 2 of IMM given and explained to patient. Signed/dated/timed and placed in chart, copy provided to patient.
--- NOTE | 2020-01-28 17:27 | PC.PT ---
PT note; Dr. Govea gave verbal order to discharge physical therapy evaluation order on this patient.
[2020-01-29] VITALS (12 sets, daily range): BP systolic 106–117; BP diastolic 70–75; PULSE 75–114; RESP 16–20; TEMP 36.6–37.1; O2SAT 86–97
[2020-01-29 04:49] LABS: Basophils # 0.1 10^3/uL (0.0-0.1); Basophils % 0.4 %; Eosinophils # 0.3 10^3/uL (0.0-0.8); Hematocrit 36.3 % (42.0-52.0); Hemoglobin 10.7 g/dL (11.7-16.6); Lymphocytes # 0.4 10^3/uL (0.8-4.8); Lymphocytes % 3.3 %; Mean Corpuscular HGB Conc 29.5 g/dL (30.0-36.0); Mean Corpuscular Hemoglobin 29.1 pg (28.0-34.0); Mean Corpuscular Volume 98.6 fL (80-94); Mean Platelet Volume 8.4 fL (7.4-10.4); Monocytes # 1.1 10^3/uL (0.2-0.9); Neutrophils # 10.7 10^3/uL (1.8-7.7); Neutrophils % 84.6 %; Nucleated Red Blood Cells % 0 %; Platelet Count 525 10^3/cmm (130-400); Red Blood Count 3.68 10^6/uL (4.1-5.3); Red Cell Distribution Width 14.8 % (12.1-15.1); White Blood Count 12.6 10^3/uL (4.0-10.0)
[2020-01-29 05:05] LABS: Magnesium 2.3 mg/dL (1.7-2.3)
[2020-01-29 05:08] LABS: Alanine Aminotransferase 95 U/L (0-41); Albumin Level 2.7 g/dL (3.5-5.2); Alkaline Phosphatase 214 IU/L (40-130); Anion Gap 12.2 (5-19); Aspartate Amino Transferase 70 U/L (0-40); Blood Urea Nitrogen 21 mg/dL (8-23); Calcium 11.7 mg/dL (8.5-10.5); Carbon Dioxide 30 mmol/L (22-29); Chloride 100 mmol/L (98-107); Globulin 3.6 g/dL (1.3-4.6); Glomerular Filtration Rate 112.1 mL/min (90-130); Glucose 159 mg/dL (65-115); Osmolality Calculated 284 mOsm/kg (285-295); Potassium 5.2 mmol/L (3.5-5.1); Sodium 137 mmol/L (136-145); Total Bilirubin 0.3 mg/dL (0.15-1.2); Total Protein 6.3 g/dL (6.6-8.7)
[2020-01-29] MEDS: ipratropium-albuterol 3 mL Neb INHALATION ×2 (07:43→11:08)
[2020-01-29] MEDS: budesonide 0.5 mg/2 mL Neb 0.25 MG INHALATION (07:43)
[2020-01-29] MEDS: sodium chloride 0.9% 1,000 ML 50 ML IV (08:13)
[2020-01-29] MEDS: potassium chloride oral liq 20 mEq/15 mL UDC 10 MEQ PO (08:14)
[2020-01-29] MEDS: metoprolol tartrate 25 mg Tablet PO (08:16)
[2020-01-29] MEDS: atorvastatin 40 mg Tablet 20 MG PO (08:17)
[2020-01-29] MEDS: apixaban 5 mg Tablet PO (08:17)
[2020-01-29] MEDS: spironolactone 25 mg Tablet 50 MG PO (08:18)
[2020-01-29] MEDS: HYDROmorphone 1 mg/mL INJ 1 mL 2 MG IVP (08:25)
--- NOTE | 2020-01-29 11:42 | P.DS_ITS ---
Discharge Providers Date of Admission: 01/25/20 13:48 Date of Discharge: January 29, 2020 Attending Provider at Admission: Rolando Gee MD Attending Provider at Discharge: Rolando Gee MD Diagnoses at Discharge Discharge Diagnosis (1) Pseudomonas sepsis: Status: Acute (2) C. 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 (8) COPD (chronic obstructive pulmonary disease): Status: Acute (9) Tracheostomy in place: Status: Chronic (10) Lung cancer, lingula: Status: Acute Reason for Visit Reason for Visit: WEAKNESS, THROAT CA Hospital Course Discharge Summary: Edgar Thomas is a 69 year old male who carries a diagnosis of invasive supraglottic cancer currently who underwent chemoradiation therapy, status post trach collar placement, colon cancer status post resection, FSGS chronic kidney disease, recurrent Pseudomonas tracheitis, recently discharged from [facility] in [place] 2 weeks ago for sepsis who presents to [facility] due to complaints of generalized weakness, decreased oxygen saturations, diarrhea. Patient was admitted for Pseudomonas tracheitis, Pseudomonas deep tissue infection of the neck, Pseudomonas sepsis, possible necrotic tissue/emphysema and gangrene of the neck, concern for increased tumor burden and or necrotic tumor of the neck. In addition was admitted for dehydration secondary to recurrent C. difficile colitis, acute kidney injury, poor appetite. Patient was admitted to the intensive care unit, received broad-spectrum antibiotic coverage, IV fluids, clinically monitored. 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 According Dr. 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 Unfortunately patient has had recurrent Pseudomonas tracheitis, and deep tissue infection. He has received a treatment of tobramycin through Dr. Taveras's office. When he was down in [place] for 16 days, the [facility] center, for his history of squamous cell carcinoma right supraglottic larynx, he had a CT of the neck showing a malignant burden with and without evidence of infection, there was concern for interval development of 2.2 x 1 point centimeter irregular soft tissue nodule in the lingula, status post lung biopsy, results showing squamous cell carcinoma, he also was treated for tracheitis, sputum cultures growing Pseudomonas, treated with ceftazidime and cefepime at one point, culture sensitive to ceftazidime, also had C. difficile, received vancomycin treatment. Through initial presentation, throughout his hospital admission, patient has had significant thick mucus secretions, serosanguineous secretions from tracheostomy site, around tracheostomy site concerning for deep tissue infection. CT neck and chest during this admission showed: Severe inflammation and soft tissue thickening in the oropharynx, hypopharynx and larynx with soft tissue emphysema consistent with necrotic tumor versus severe infectious process. 4. Decreased contrast enhancement in portions of the lesion suggesting possible non perfused tissue. I cannot rule out gangrene. 5. There is air within the thyroid cartilage bilaterally with possible partial lytic destruction of the cricoid cartilage and arytenoids. 6. Soft tissue thickening and some soft tissue emphysema surrounding the tracheostomy tube which is contiguous with the inflammation in the proximal thoracic trachea and larynx suggesting continuation of the severe infectious or neoplastic process to the skin surface 1. Spiculated tumor mass inferior segment of the lingula with concern for either primary or metastatic lung carcinoma. 2. Diffuse thickening of the trachea, particularly at the level of the tracheostomy, consistent with the history of tracheitis. 3. Soft tissue fullness with focal pockets of emphysematous foci just above and at the level of the tracheostomy. This is only partially imaged. Cannot exclude a underlying neoplastic process. Active infectious process is a differential consideration. Likely these findings represent Pseudomonas tracheitis, with associated Pseudomonas bacteremia, with associated Pseudomonas deep tissue infection of the neck, neck emphysema, possible necrotic tissue, possible gangrene, and or possible increased tumor burden, and or necrotic tumor. I had a discussion with Dr. Charles and Dr. Mock about the case. According to Dr. Lewis, he has had multiple discussions with the patient in the past, the only way to effectively treat his infection specifically, is to continue IV antibiotics, and consider extensive surgical treatment debridement of the neck, this surgery would be quite extensive, carry a high risk of morbidity and mortality, unfortunately he would not be a candidate for radiation therapy given his infection, the surgical treatment would carry high risk of significant morbidity and mortality, and patient has declined surgical interventions in the past. I spoke to Dr. Charles about the case he stated that currently patient is not a candidate for chemoradiation, he has had an extensive discussion with patient and his about hospice, and Mr. Thomas and his have been leaning towards hospice but no decisions were made. I had a discussion with patient and his in the ICU on 01/29/2020 1.) Option 1 I discussed with surgical interventions, he will likely require extensive surgical interventions involving the deep tissues of his neck, surgical interventions in my mind would carry the best result, given my worry of deep tissue infections, tracheitis, likely associate with Pseudomonas however they do carry a significant risk of morbidity and mortality, I do not know if he would be able to stand surgery, nor does patient want to have surgery. Multiple times throughout patient's admission, he is declined surgical intervention, also has declined surgical intervention to Dr. Charles, Dr. Mock. In addition he would likely require radiation therapy, if he has increased tumor burden, necrotic tumor, and certainly given his current infection he is not a candidate for radiation therapy at this time 2.) Option 2 I advised patient continue medical therapy, continue antibiotic interventions and consider inhaled antibiotic therapy, but I think that this would be ineffective this l, as patient continues to have recurrent Pseudomonas tracheitis, now Pseudomonas bacteremia and given CT evidence of deep tissue infection and/or tumor burden and necrotic tumor, I feel that he would likely have recurrent admissions, recurrent hospitalization, significant risk of sepsis, septic shock, and significant suffering associated with. Patient has already finished multiple rounds of antibiotics, has been at the [facility] in [place], has tried inhaled tobramycin through Dr. Taveras's office, however his clinical condition has not improved, continues to have thick viscous creamy secretions from his tracheostomy/around his tracheostomy site, neck is more distended daily, indicating to me that he likely has a significant deep tissue infection of the structures of his neck, and antibiotics will no longer be the solution. Advised patient that we can continue all medical interventions, see if we can get him into a better spot, however long that takes, see if we can get him home 3.)Third option would be hospice, hospice would be emphasizing comfort, easing his pain is in his suffering, allowing him to be around family members at home, circumventing recurrent hospital admissions, emphasizing a quality of life. We can try oral antibiotics for Pseudomonas infection and bacteremia, although not ideal, not effective way to treat his bacteremia or deep tissue infection, but will provide some benefit. Hospice has declined IV antibiotics, so we will have to do oral antibiotics although suboptimal, for his deep tissue infection and bacteremia, patient and voiced understanding, all questions answered, agreed with oral antibiotics. and patient, agreed to hospice option, voiced understanding, all questions answered, agreed to proceed with hospice. In addition patient also had C. difficile colitis during his hospital admission, was treated with oral vancomycin, diarrhea improved to some degree, dehydration improved to some degree, discharged on vancomycin on a pulse tapered regimen. For his Pseudomonas bacteremia, tracheitis, deep tissue infection I have discharged him on Levaquin for 14 days. In addition his cultures around the neck have grown enterococcus, I have discharged him on Zyvox for 14 remaining days. Patient was discharged home on hospice, on hospice orders, home oxygen, home commode Physical Exam Narrative: EXAM NARRATIVE: Patient is quite withdrawn this morning, poor eye contact, looks depressed Const: COMMON NORMALS: no acute distress and patient oriented x3 HENMT: COMMON NORMALS: normocephalic HEAD & SCALP: normocephalic OTHER: Tracheostomy is in place, has thick mucus secretions around it Neck/C-Spine: COMMON NORMALS: no JVD OTHER: Neck is quite distended, bilaterally, no fluctuance, hard nodules palpated Resp: COMMON NORMALS: normal respiratory effort, No retractions, No use of accessory muscles and clear to auscultation bilaterally AUSCULTATION: clear to auscultation bilaterally Cardio: COMMON NORMALS: no JVD, regular rate, regular rhythm, S1 normal heart sound present and S2 normal heart sound present RATE: regular rate RHYTHM: regular rhythm HEART SOUNDS: S1 normal heart sound present and S2 normal heart sound present GI: COMMON NORMALS: Normal to inspection, nondistended, normoactive bowel sounds present, Soft to palpation, non-tender, No hepatosplenomegaly present, no masses and no bruits PALPATION: Yes Soft to palpation and Yes No hepatosplenomegaly present Extremity: COMMON NORMALS: capillary refill normal, no clubbing, cyanosis or edema, no calf tenderness and no pedal edema Neuro: COMMON NORMALS: patient oriented x3 Discharge Data Data Completed and Pending: Completed Studies During Hospitalization Category Date Time Status CT abdomen pelvis w con* [id number] Stat Cat Scan 01/25/20 11:[address] chest w con* [id number] Stat Cat Scan 01/25/20 16:[address] neck w con* [id number] Stat Cat Scan 01/25/20 16:46 Completed XR chest 1V ashly ble [id number] Routine Exams 01/25/20 15:30 Completed Pending at discharge Category Date Time Status Blood Culture Sta t Lab 01/25/20 12:05 Results Magnesium AM LABS Lab 01/30/20 04:00 Ordered Magnesium AM LABS Lab 01/31/20 04:00 Ordered Phosphorus AM LAB S Lab 01/30/20 04:00 Ordered Phosphorus AM LAB S Lab 01/31/20 04:00 Ordered Respiratory Viral Panel PCR Stat Lab 01/25/20 19:20 Received Wound Culture Rou ning Lab 01/26/20 01:00 Results Labs from last 24 hours 01/29/20 01/29/20 01/29/20 04:30 04:30 04:30 WBC 12.6 H RBC 3.68 L Hgb 10.7 L Hct 36.3 L MCV 98.6 H MCH 29.1 MCHC 29.5 L RDW 14.8 Plt Count 525 H MPV 8.4 Neut % (Auto) 84.6 Lymph % (Auto) 3.3 [place] % (Auto) 9.0 Eos % (Auto) 2.0 Baso % (Auto) 0.4 Neut # (Auto) 10.7 H Lymph # (Auto) 0.4 L [place] # (Auto) 1.1 H Eos # (Auto) 0.3 Baso # (Auto) 0.1 Nucleated RBC % (a uto) 0 Nucleated RBCs # 0.0 Sodium 137 Potassium 5.2 H Chloride 100 Carbon Dioxide 30 H Anion Gap 12.2 BUN 21 Creatinine 0.7 GFR Calculation 112.1 Glucose 159 H Calculated Osmolal ity 284 L Calcium 11.7 H Phosphorus 3.0 Magnesium 2.3 Total Bilirubin 0.3 AST 70 H ALT 95 H Alkaline Phosphata se 214 H Total Protein 6.3 L Albumin 2.7 L Globulin 3.6 Vitals: Last Vital Signs Temp 98.7 F 01/29/20 04:00 Pulse 108 H 01/29/20 11:14 Resp 18 01/29/20 11:10 BP 117/75 06/14/20 04:00 Pulse Ox 92 01/29/20 11:10 Discharge Plan Discharge Patient Disposition: Hospice - Home Condition: Stable Prescriptions: New vancomycin 125 mg capsule See Rx Instructions .ROUTE .COMPLEX Qty: 76 RF: 0 Levaquin 750 mg tablet 750 mg PO DAILY 14 Days Qty: 14 RF: 0 Zyvox 600 mg tablet 600 mg PO BID 14 Days Qty: 28 RF: 0 Continued ipratropium-albuterol 0.5 mg-3 mg(2.5 mg base)/3 mL solution for nebulization 3 ml INHALATION QID Qty: 360 RF: 3 budesonide [Pulmicort] 0.5 mg/2 mL suspension for nebulization 0.25 mg INHALATION BID Qty: 120 RF: 3 albuterol sulfate 90 mcg/actuation Hfa Aerosol Inhaler 2 puff INHALATION QID PRN (Reason: Shortness Of Breath) RF: 0 spironolactone 50 mg Tablet 50 mg PO DAILY RF: 0 Mucinex Liquid 5 ml PO QID PRN (Reason: unknown) RF: 0 apixaban 5 mg Tablet 5 mg PO BID RF: 0 pravastatin 40 mg Tablet 40 mg PO DAILY RF: 0 acetaminophen 650 mg/20.3 mL Solution 650 mg PO Q4H PRN (Reason: Mild Pain Or Increase Temp) Qty: 300 RF: 0 metoprolol tartrate 25 mg Tablet 25 mg PO BID RF: 0 potassium chloride 10 mEq Tablet Extended Release 10 meq PO DAILY RF: 0 famotidine 20 mg Tablet 20 mg PO DAILY RF: 0 Nutritional Drink Liquid 1 ea PO TID RF: 0 Changed torsemide 10 mg Tablet 10 mg PO DAILY Qty: 0 RF: 0 Discharge Orders: Discharge Order (Routine); Ordered 01/29/20 Ordered By: Rolando Gee Other Ambulatory Orders: Complete Blood Count w/Auto (WEEKLY) Timeframe: 20200205 Location: Determined by Patient Ordered By: Rolando Gee Complete Blood Count w/Auto (WEEKLY) Timeframe: 20200206 Location: Determined by Patient Ordered By: Rolando Gee Comprehensive Metabolic Panel (WEEKLY) Timeframe: 20200205 Facility: [facility] - Location: Lab - Main Lab Ordered By: Rolando Gee Comprehensive Metabolic Panel (WEEKLY) Timeframe: 20200206 Facility: [facility] - Location: Lab - Main Lab Ordered By: Rolando Gee DME: [employer] (Order) Location: None Selected Ordered By: Rolando Gee Referrals: [facility] ([facility]) [Outside] Discharge Diet: Resume prior tube feeds and Start new tube feeds as directed Discharge Activity: Resume usual activity Patient Instructions: Vancomycin (Injection), Levofloxacin (By mouth), Linezolid (By mouth), Hospice Care (GEN) Discharge Attestations Time Spent in Discharge Care*: less than 30 min Quality Metrics Clinical Quality Measures During this hospital stay, did patient experience: None Coding Level of Care Code Acute Clinical Product Manager for Chg Fwd Diagnoses Pseudomonas sepsis A41.52 C. difficile colitis A04.72 Tracheitis J04.10 Dehydration E86.0 Atrial fibrillation I48.91 Hypertension I10 CKD (chronic kidney disease) N18.9 COPD (chronic obstructive pulmonary disease) J44.[address] Z93.0 Lung cancer, lingula C34.10
--- NOTE | 2020-01-29 11:56 | PC.NURSE ---
pt ashly cath is accessed in the right chest.
--- NOTE | 2020-01-29 12:58 | PC.NURSE ---
THIS NURSE DE-ACCESSED PATIENTS PAC. NO ISSUES.
[2020-01-30 19:26] LABS: Adenovirus Not Detected (Not Detected); Human Metapneumovirus Not Detected (Not Detected); Human Parainflu Virus 1 Not Detected (Not Detected); Human Parainflu Virus 2 Not Detected (Not Detected); Human Parainflu Virus 3 Not Detected (Not Detected); Human Rsv A Not Detected (Not Detected); Influenza A Not Detected (Not Detected); Influenza B Not Detected (Not Detected); Rhinovirus/Enterovirus Not Detected (Not Detected)
== END 2020-01-29 13:14 | disposition hospice, home (50) | DRG 872 ==
LOC: ER 11:56 → ICU 14:04 → MEDSURG 01-28 13:36
PROVIDERS: Family Medicine; Admitting Provider Family Medicine; Visit Provider Family Medicine
DX: A41.52 Sepsis due to Pseudomonas (principal); C78.02 Secondary malignant neoplasm of left lung; I48.20 Chronic atrial fibrillation, unspecified; A04.72 Enterocolitis due to Clostridium difficile, not specified as recurrent; J04.10 Acute tracheitis without obstruction; C32.1 Malignant neoplasm of supraglottis; Z92.21 Personal history of antineoplastic chemotherapy; Z92.3 Personal history of irradiation; Z93.0 Tracheostomy status; Z85.038 Personal history of other malignant neoplasm of large intestine; N18.9 Chronic kidney disease, unspecified; I12.9 Hypertensive chronic kidney disease with stage 1 through stage 4 chronic kidney disease, or unspecified chronic kidney disease; Z90.49 Acquired absence of other specified parts of digestive tract; J44.9 Chronic obstructive pulmonary disease, unspecified; E78.5 Hyperlipidemia, unspecified; G47.33 Obstructive sleep apnea (adult) (pediatric); G62.0 Drug-induced polyneuropathy; T45.1X5S Adverse effect of antineoplastic and immunosuppressive drugs, sequela; Z93.1 Gastrostomy status; Z87.891 Personal history of nicotine dependence; Z66 Do not resuscitate; E86.0 Dehydration; Z79.01 Long term (current) use of anticoagulants
CPT/HCPCS: 12345; 36415; 36416; 36591; 36600; 70491; 71045; 71260; 74177; 80051; 80053; 81001; 82810; 82962; 83605; 83690; 83735; 83986; 84100; 84145; 85025; 85651; 86140; 87040; 87070; 87077; 87186; 87205; 87493; 87641; 93005; 94640; 94664; 96375; 99283; J0743; J1170; J1956; J2270; J2405; J3370; J7030; J7050; J7626; Q9967